=== PATIENT | male | born 1960 | race Caucasian/White ===

== ENCOUNTER → 2018-02-09 09:08 | Outpatient (CLI) | payer MEDICARE, SELFPAY ==
[2018-02-09 10:55] LABS: AST(SGOT) 26 U/L (15-37); Alanine Aminotransfer ALT/SGPT 34 U/L (16-61); Albumin, Serum 3.7 g/dL (3.2-5.0); Alkaline Phosphatase 87 U/L (45-117); Bilirubin, Direct 0.15 mg/dL (0.00-0.30); Cholesterol 125 mg/dL (200); Globulin 3.8 g/dL (2.2-4.2); High Density Lipoprotein 51 mg/dL; Protein, Total 7.5 g/dL (6.4-8.2); Triglycerides 85 mg/dL; Very Low Density Lipoprotein 17 mg/dL (5-40)
== END ==
PROVIDERS: Visit Provider Internal Medicine Cardiovascular Disease
DX: E78.5 Hyperlipidemia, unspecified (principal); Z79.899 Other long term (current) drug therapy
CPT/HCPCS: 36415; 80061; 80076

== ENCOUNTER → 2018-08-14 10:19 | Outpatient (CLI) | payer MEDICARE, SELFPAY ==
[2018-08-14 11:44] LABS: AST(SGOT) 20 U/L (15-37); Alanine Aminotransfer ALT/SGPT 51 U/L (16-61); Albumin, Serum 3.9 g/dL (3.2-5.0); Alkaline Phosphatase 96 U/L (45-117); Bilirubin, Direct 0.14 mg/dL (0.00-0.30); Cholesterol 137 mg/dL (200); High Density Lipoprotein 56 mg/dL; Protein, Total 7.9 g/dL (6.4-8.2); Triglycerides 54 mg/dL; Very Low Density Lipoprotein 11 mg/dL (5-40)
== END ==
PROVIDERS: Referring Provider Internal Medicine Cardiovascular Disease; Visit Provider Internal Medicine Cardiovascular Disease
DX: E78.5 Hyperlipidemia, unspecified (principal)
CPT/HCPCS: 36415; 80061; 80076

== ENCOUNTER → 2019-02-12 09:04 | Outpatient (CLI) | payer MEDICARE, SELFPAY ==
[2018-03-01 11:33] VITALS: BMI 35.9
[2019-02-12 10:42] LABS: AST(SGOT) 32 U/L (15-37); Alanine Aminotransfer ALT/SGPT 57 U/L (16-61); Alkaline Phosphatase 92 U/L (45-117); Bilirubin, Direct 0.13 mg/dL (0.00-0.30); Cholesterol 131 mg/dL (200); Globulin 3.7 g/dL (2.2-4.2); High Density Lipoprotein 54 mg/dL; Protein, Total 7.7 g/dL (6.4-8.2); Triglycerides 73 mg/dL; Very Low Density Lipoprotein 15 mg/dL (5-40)
== END ==
PROVIDERS: Referring Provider Internal Medicine Cardiovascular Disease; Visit Provider Internal Medicine Cardiovascular Disease
DX: E78.5 Hyperlipidemia, unspecified (principal)
CPT/HCPCS: 36415; 80061; 80076

== ENCOUNTER → 2020-02-05 07:57 | Outpatient (CLI) | payer MEDICARE, SELFPAY ==
[2019-02-22 13:03] VITALS: BMI 36.1
[2020-02-05 09:28] LABS: AST(SGOT) 28 U/L (15-37); Alanine Aminotransfer ALT/SGPT 40 U/L (16-61); Albumin, Serum 3.9 g/dL (3.2-5.0); Alkaline Phosphatase 100 U/L (45-117); Bilirubin, Direct 0.12 mg/dL (0.00-0.30); Cholesterol 142 mg/dL (200); Globulin 3.9 g/dL (2.2-4.2); High Density Lipoprotein 52 mg/dL; Protein, Total 7.8 g/dL (6.4-8.2); Triglycerides 97 mg/dL; Very Low Density Lipoprotein 19 mg/dL (5-40)
== END ==
PROVIDERS: Internal Medicine Cardiovascular Disease; Visit Provider Physician Assistant Medical
DX: E78.00 Pure hypercholesterolemia, unspecified (principal); I47.1 Supraventricular tachycardia; I10 Essential (primary) hypertension
CPT/HCPCS: 36415; 80061; 80076

== ENCOUNTER 2020-05-24 16:47 | Emergency (ER) | payer MEDICARE, SELFPAY ==
[2020-02-21 14:36] VITALS: BMI 36.6
[2020-05-24 16:48] VITALS: BP 170/99; PULSE 75; RESP 16; TEMP 36.9; O2SAT 99; BMI 35.9
--- NOTE | 2020-05-24 17:13 | ED.VIS.GEN ---
History of Present Illness Informant: Patient, Significant Other Onset: Weeks - 1 week Context: Gradual Onset Timing: Continuous Current Severity: Severe Maximum Severity: Severe Worsened by: nothing Relieved by: nothing Associated Symptoms: Denies Narrative: 59-year-old male with a history of hypertension and schizophrenia presents to the emergency department with elevated blood pressure. He has been dealing with elevated blood pressure now over the last 4 months. He just had his lisinopril increased from 20 mg to 30 mg a day about a week ago. He recently bought a blood pressure cuff and has been checking his blood pressures at home and he states that they have been running around 150 systolic. His was concerned that the machine was not working they went to the [facility] to check blood pressure and it was 180 systolic and she brought him to the emergency department. The patient currently is asymptomatic. He has no chest pain he does not feel short of breath. He has not felt lightheaded or dizzy. He has not had any headaches visual changes difficulties with speech or ambulation or any weakness or paresthesias. He has been compliant with his medications. He actually has an appointment with his doctor on Tuesday for follow-up regarding his blood pressure. Prior similar symptoms: Yes Recent Illness/Hospitalization: No <Prieto England - Last Filed: 05/24/20 17:37> <Rios Short - Last Filed: 05/24/20 21:15> Chief Complaint: Hypertension Past Medical History Prior records reviewed: Yes Past Medical History: - - Schizophrenia, hypertension, hyperlipidemia, diabetes mellitus insulin-dependent Surgical History: appendectomy, cholecystectomy Lives: With Family Smoking Status: Former smoker Alcohol: None Drugs: None <Prieto England - Last Filed: 05/24/20 17:37> <Rios Short - Last Filed: 05/24/20 21:15> - Allergies and Home Meds Allergies/Adverse Reactions: Allergies No Known Allergies Allergy (Verified 05/24/20 16:48) Primary Care Physician: Mitch Kumar MD [Primary Care Provider] - As soon as possible Review of Systems All systems negative except as indicated General: Denies: Chills, Fever, Sweats Eyes: Denies: Visual changes - bilaterally, Diplopia ENT: Denies: Rhinorrhea, Sore throat Cardiovascular: Denies: Chest pain, Palpitations, Heart racing Respiratory: Denies: Dyspnea, Cough, Dyspnea on exertion Gastrointestinal: Denies: Abdominal pain, Nausea, Vomiting, Diarrhea, Melena, Hematochezia Genitourinary: Denies: Dysuria, Hematuria, Frequency Musculoskeletal: Denies: Back pain, Extremity Pain Skin: Denies: Rash, Wounds Neurological: Denies: Headache, Weakness, Parasthesia, Numbness <Prieto England - Last Filed: 05/24/20 17:37> Physical Exam Vital Signs/Narrative: Vital Signs Temp Pulse Resp BP Pulse Ox 05/24/20 16:48 98.4 F 75 16 170/99 H 99 Inital Vital Signs reviewed: Yes General: Well nourished, Well developed, No Acute Distress Head: Normocephalic, Atraumatic Eyes: Perrl, EOMI ENT: Moist mucous membranes, No rhinorrhea Neck: Supple, Nontender Cardiovascular: Regular rate, Regular rhythm, No murmurs Respiratory: No distress, CTA bilaterally, Chest nontender Abdomen: Soft, Nontender, Nondistended, Normal bowel sounds Back: Nontender, Normal Inspection Extremities: Nontender, No edema Skin: Normal color, No rash Neurological: Alert, Oriented x3, Cranial nerves II-XII grossly intact, Normal Strength, Normal Sensation, Normal Gait Psychological: Normal affect, Normal Mood <Prieto England - Last Filed: 05/24/20 17:37> Vital Signs/Narrative: Vital Signs Pulse Resp BP Pulse Ox 05/24/20 17:40 62 18 139/85 H 99 <Rios Short - Last Filed: 05/24/20 21:15> Diagnostic/Tx/Re-eval - Medical Decision Making Patient is completely asymptomatic his blood pressure here is 170/99. We will observe him and recheck it. At this time I do not feel urgent blood pressure lowering is indicated patient is asymptomatic and his blood pressure is only 170 systolic Repeat evaluation patient's blood pressure was 139/79. He was reassured. He will continue to log his blood pressures. He has an appointment on Tuesday with his doctor for close follow-up. <Prieto England - Last Filed: 05/24/20 17:37> - Medical Decision Making Patient was seen with me. I did a [id number] examination with the patient. Patient presents with elevated blood pressure that he noticed today. Patient states his blood pressure has been elevated at times. Patient denies any headaches. Patient denies any chest pain or shortness of breath. Patient denies any nausea or vomiting. Patient is in no acute distress. Vital signs showed an elevated blood pressure of 170/99. Patient is afebrile. Cranial nerves II through XII are intact. Strength is 5/5 bilateral in the upper and lower extremities. There are no sensory deficits. Heart was regular rate and rhythm. Lungs are clear and equal bilaterally. Abdomen is soft and nontender. Extremities are intact. There is no calf tenderness. Patient was observed here in the emergency department. Patient's blood pressure improved to 139/79. Patient was instructed to follow-up with his primary care physician at the [facility]. Patient was instructed to keep a log of his blood pressures. Patient states he also has an appointment with his certified nursing assistant instructor, Dr. Ahn this week. Patient was instructed to take his blood pressure readings to his certified nursing assistant instructor appointment. Patient understood and was agreeable with the plan. All questions were answered. <Rios Short - Last Filed: 05/24/20 21:15> ED Disposition <Prieto England - Last Filed: 05/24/20 17:37> <Rios Short - Last Filed: 05/24/20 21:15> - Plan for ED Patient: Disposition: Home or Assisted Living Diagnosis: Essential (primary) hypertension Instructions: ED Hypertension Established Referrals: Mitch Kumar MD [Primary Care Provider] - As soon as possible
[2020-05-24 17:40] VITALS: BP 139/85; PULSE 62; RESP 18; O2SAT 99
== END 2020-05-24 17:50 | disposition home or self-care (01) ==
PROVIDERS: Emergency Provider Physician Assistant Medical; PCP Family Medicine
DX: I10 Essential (primary) hypertension (principal); Z87.891 Personal history of nicotine dependence; E11.9 Type 2 diabetes mellitus without complications; E78.5 Hyperlipidemia, unspecified; F20.9 Schizophrenia, unspecified; Z79.4 Long term (current) use of insulin; Z79.84 Long term (current) use of oral hypoglycemic drugs; Z79.899 Other long term (current) drug therapy
CPT/HCPCS: 99282

== ENCOUNTER 2020-10-30 12:23 | Emergency (ER) | payer OTHER, MEDICARE, SELFPAY ==
[2020-05-28 11:22] VITALS: BMI 35.9
[2020-10-30 12:24] VITALS: BP 153/101; PULSE 70; RESP 18; TEMP 36.5; O2SAT 97; BMI 35.9
--- NOTE | 2020-10-30 12:37 | ED.DCSUM_ITS ---
History of Present Illness Chief Complaint: Palpitations Informant: Patient Narrative: 60-year-old male presenting with palpitations. He states he has a history of palpitations in the past. Patient also states about 4 to 5 years ago he was seen at [place] [facility] and was taken to [facility] where he said they did a function test and did not find anything. Patient states that he does drink a lot of iced tea but noticed that the palpitations started in the morning yesterday before he was drinking caffeine. He states he felt a little lightheaded during the palpitations. He denies cough, fever, chills, myalgias, change in taste or smell. He denies chest pain. - Past Medical History (1) Essential (primary) hypertension Status: Chronic (2) HLD (hyperlipidemia) Status: Chronic (3) Supraventricular tachycardia Status: Chronic Past Medical History - Allergies and Home Meds Allergies/Adverse Reactions: Allergies No Known Allergies Allergy (Verified 10/30/20 12:24) Primary Care Physician: Mitch Kumar MD [Primary Care Provider] - Prior records reviewed: Yes Past Medical History: - - Reviewed in problem list Surgical History: appendectomy, cholecystectomy Lives: Alone Smoking Status: Former smoker Alcohol: None Drugs: None Review of Systems General: Denies: Chills, Fever, Sweats Eyes: Denies: Visual changes - bilaterally, Diplopia ENT: Denies: Rhinorrhea, Sore throat Cardiovascular: Reports: Palpitations, Heart racing Respiratory: Denies: Dyspnea, Cough, Dyspnea on exertion Gastrointestinal: Denies: Abdominal pain, Nausea, Vomiting, Diarrhea, Melena, Hematochezia Musculoskeletal: Denies: Back pain, Extremity Pain Skin: Denies: Rash, Wounds Neurological: Denies: Headache, Weakness, Numbness Psych: Denies: Depression, Anxiety Endocrine: Denies: Polyuria, Polydipsia Physical Exam Vital Signs/Narrative: Vital Signs Temp Pulse Resp BP Pulse Ox 10/30/20 12:24 97.7 F L 70 18 153/101 H 97 General: Well nourished, Well developed, No Acute Distress Head: Normocephalic, Atraumatic Eyes: Perrl, EOMI ENT: Moist mucous membranes, No rhinorrhea Cardiovascular: Regular rate, Regular rhythm, No murmurs Respiratory: No distress, CTA bilaterally, Chest nontender Abdomen: Soft, Nontender, Nondistended, Normal bowel sounds Extremities: Nontender, No edema Skin: Normal color, No rash Neurological: Alert, Oriented x3, Cranial nerves II-XII grossly intact, Normal Strength, Normal Sensation Psychological: Normal affect, Normal Mood Diagnostic/Tx/Re-eval - Rhythm Strip Rhythm Strip: Sinus Rhythm Rate: 68 - EKG Initial EKG Interpretation: Sinus Rhythm, No Acute Injury Pattern Follow-up EKG Interpretation: Sinus Rhythm, No Acute Injury Pattern - Medical Decision Making Seen and evaluated on arrival. Vital signs are stable he is afebrile. He had initial EKG which is sinus rhythm at 68 bpm without signs of ischemia. Troponin was bumped at 0.103. Chest x-ray is interpreted by myself shows no acute cardiopulmonary process. Radiology does agree. Otherwise lab work is normal. After initial interview I did find that the patient has history of SVT and similar presentation. He is denying chest pain but states he felt lightheaded and actually describes this as an SVT episode. Patient was discussed with Dr. Fontaine pertinent history was discussed as he does currently see patient. He felt that if the patient had a delta troponin and his troponin had gone down or not changed that he could be discharged home safely with close outpatient follow-up. Repeat EKG is sinus rhythm at 63 bpm without signs of ischemic change as interpreted by myself. Troponin is 0.107 which is not significantly changed. Patient has had no runs of SVT in the ED. Patient feels comfortable being discharged home. Impression: 1. Palpitations 2. History of SVT 3. Indeterminate troponin ED Disposition - Plan for ED Patient: Disposition: Home or Assisted Living Instructions: ED Palpitations Referrals: Mitch Kumar MD [Primary Care Provider] -
--- NOTE | 2020-10-30 12:37 | EKG12_ITS ---
Test Reason : Blood Pressure : / mmHG Vent. Rate : 063 BPM Atrial Rate : 063 BPM P-R Int : 160 ms QRS Dur : 092 ms QT Int : 434 ms P-R-T Axes : 053 -21 041 degrees QTc Int : 444 ms Normal sinus rhythm Normal ECG Confirmed by PRANAV HIGHTOWER, JACLYN ([id number]), communications editor NICK CARLSON ([id number]) on 11/03/2020 10:46:20 AM Referred By: SNOW Confirmed By:AISLINN ROCK MD
[2020-10-30 12:52] VITALS: BP 146/72; PULSE 67; RESP 20; O2SAT 94
--- NOTE | 2020-10-30 12:58 | ED.RN ---
COVID SWAB OBTAINED
[2020-10-30 12:59] LABS: Absolute Lymphocyte Count 2.74 X10^3/uL (0.83-4.51); Absolute Neutrophil Count 5.7 X10^3/uL (2.0-7.7); Basophil# 0.05 X10^3/uL; Basophil% 0.5 % (0-1); Eosinophils% 2.1 % (0-5); Hematocrit 44.6 % (40-54); Hemoglobin 15.4 g/dL (13.0-16.5); Lymphocyte # 2.74 X10^3/ul (4.0); Mean Corp Hgb Conc 34.5 g/dL (32-36); Mean Corpuscular Hgb 31.3 pg (27.0-32.0); Mean Corpuscular Volume 90.7 fL (80-94); Mean Platelet Vol. 9.3 fl (6.2-12.0); Monocyte# 0.74 X10^3/uL; Monocyte% 7.8 % (0-10); NRBC Flagged by Analyzer 0 % (0-5); Neutrophil # 5.67 X10^3/uL (2.7-7.7); Neutrophil % 60.1 % (47-70); Platelet Count 234 K/mm3 (150-450); RBC Distribution Width CV 12.8 % (11.6-14.6); RBC Distribution Width SD 42.2 fl (35.1-43.9); Red Blood Count 4.92 M/mm3 (4.6-6.2); White Blood Count 9.5 K/mm3 (4.4-11.0)
--- NOTE | 2020-10-30 13:00 | RAD_ITS ---
STUDY: X-RAY CHEST REASON FOR EXAM: Male, 60 years old. Irregular HR yesterday- HX OF SAME TECHNIQUE: Single AP portable view of the chest. COMPARISON: Comparison is made with prior study 07/19/2013. FINDINGS: EKG electrodes are seen. Elevation of the left hemidiaphragm with mild degree of left basilar atelectasis. There is no demonstrated pleural abnormality. Normal size heart. Normal mediastinum and jose de jesus. Normal visualized pulmonary arteries. Normal visualized aortic arch and descending thoracic aorta. There are degenerative changes of the visualized thoracic spine. Normal visualized ribs, clavicles, and shoulders. There is no demonstrated abnormality of the visualized soft tissue structures of the upper abdomen. RAD/Chest 1 View (Portable) IMPRESSION: Elevation of the left hemidiaphragm with a mild degree of left basilar atelectasis. Electronically Signed: Manjinder Pinon MD at 13:21 EST , Service support ,
[2020-10-30 13:15] LABS: Anion Gap 6 (5-15); BUN 16 mg/dL (7-18); BUN/Creat Ratio 14.3 RATIO (10-20); Calcium,Total 9.4 mg/dL (8.5-10.1); Chloride 99 mmol/L (98-107); Creatinine, Serum 1.12 mg/dL (0.70-1.30); EST Glomerular Filtration Rate 71 mL/min (>60); Est Glom Filt Rate - Afr Amer 86 mL/min (>60); Estimated Creatinine Clearance 71.52 ml/min; Glucose 157 mg/dL (74-106); Potassium 4.1 mmol/L (3.5-5.1); Sodium Level 133 mmol/L (136-145)
[2020-10-30 13:48] VITALS: BP 115/82; PULSE 78; RESP 20; O2SAT 94
[2020-10-30 14:08] VITALS: PULSE 63; RESP 20; O2SAT 97
[2020-10-30] MEDS: Aspirin 81 MG TAB.CHEW 324 MG PO (14:08)
[2020-10-30 15:17] VITALS: BP 135/79; PULSE 68; RESP 16; O2SAT 98
--- NOTE | 2020-10-30 15:30 | EKG12_ITS ---
Test Reason : Blood Pressure : / mmHG Vent. Rate : 068 BPM Atrial Rate : 068 BPM P-R Int : 156 ms QRS Dur : 096 ms QT Int : 418 ms P-R-T Axes : 050 -25 047 degrees QTc Int : 444 ms Normal sinus rhythm Normal ECG Confirmed by PRANAV HIGHTOWER, JACLYN ([id number]), graphics editor NICK CARLSON ([id number]) on 11/03/2020 10:46:35 AM Referred By: ARNOLD Confirmed By:AISLINN ROCK MD
[2020-10-30 16:49] VITALS: BP 138/88; PULSE 68; RESP 16; TEMP 35.8; O2SAT 98
== END 2020-10-30 17:23 | disposition home or self-care (01) ==
PROVIDERS: Emergency Provider Student in an Organized Health Care Education/Training Program; PCP Family Medicine
DX: R00.2 Palpitations (principal); I47.1 Supraventricular tachycardia; I10 Essential (primary) hypertension; E78.5 Hyperlipidemia, unspecified; Z87.891 Personal history of nicotine dependence; Z90.49 Acquired absence of other specified parts of digestive tract
CPT/HCPCS: 71045; 80048; 83735; 84484; 85025; 87426; 93005; 99285; A4216

== ENCOUNTER → 2021-01-26 08:25 | Outpatient (CLI) | payer MEDICARE, OTHER, SELFPAY ==
[2021-01-26 10:07] LABS: AST(SGOT) 12 U/L (15-37); Alanine Aminotransfer ALT/SGPT 32 U/L (16-61); Albumin, Serum 3.9 g/dL (3.2-5.0); Alkaline Phosphatase 93 U/L (45-117); Bilirubin, Direct 0.18 mg/dL (0.00-0.30); Cholesterol 134 mg/dL (200); Globulin 3.6 g/dL (2.2-4.2); High Density Lipoprotein 63 mg/dL; Protein, Total 7.5 g/dL (6.4-8.2); Triglycerides 72 mg/dL; Very Low Density Lipoprotein 14 mg/dL (5-40)
== END ==
PROVIDERS: PCP Family Medicine; Referring Provider Internal Medicine Cardiovascular Disease; Visit Provider Internal Medicine Cardiovascular Disease
DX: E78.00 Pure hypercholesterolemia, unspecified (principal)
CPT/HCPCS: 36415; 80061; 80076

== ENCOUNTER → 2024-08-28 | Outpatient (CLI) | payer MEDICARE, SELFPAY ==
[2024-08-28 16:00] LABS: PSA,Total - Annual Screen 0.47 ng/mL (0.00-4.00)
== END | disposition home or self-care (01) ==
PROVIDERS: PCP Family Medicine; Visit Provider Nurse Practitioner Family
DX: Z12.5 Encounter for screening for malignant neoplasm of prostate (principal)
CPT/HCPCS: 36415; 84153; G0103

== ENCOUNTER 2024-11-01 13:48 | Emergency (ER) | payer OTHER, SELFPAY ==
[2024-11-01] VITALS (8 sets, daily range): BP systolic 107–120; BP diastolic 68–90; PULSE 90–213; RESP 16–28; TEMP 35.7–36.8; O2SAT 97–100; BMI 31.5
[2024-11-01] MEDS: Adenosine 6 MG/2 ML Syringe IV (14:00)
[2024-11-01] MEDS: Adenosine 6 MG/2 ML Syringe 12 MG IV (14:04)
--- NOTE | 2024-11-01 14:07 | EKG12_ITS ---
Test Reason : PALPITATIONS Blood Pressure : */* mmHG Vent. Rate : 204 BPM Atrial Rate : * BPM P-R Int : * ms QRS Dur : 114 ms QT Int : 234 ms P-R-T Axes : * -48 69 degrees QTcB Int : 431 ms Critical Test Result: High HR Supraventricular tachycardia with Premature ventricular complexes or Fusion complexes Left axis deviation Abnormal ECG Confirmed by KD HIGHTOWER, BAO ([id number]), editor continuity and script NICK CARLSON ([id number]) on 11/05/2024 6:03:33 AM Referred By: Confirmed By: BAO YI MD
--- NOTE | 2024-11-01 14:08 | EDS_ITS ---
HPI History of Present Illness Chief Complaint: Palpitations Detail of Chief Complaint: No chest pain. Palpitations started 1-1/2 hours ago. Informant: patient Onset/Context/Timing Onset: Today and Hours Activity at onset: sudden Timing: Continuous Narrative Narrative: 64-year-old male history of a prior abnormal heart rhythm he thinks may have been SVT. Baseline about an hour and a half ago he started having accelerated heart rate and palpitations. Denies chest pain. Said the last time he had a year ago that resolved on its own. He has had to come to the ER before and been given medication for but he cannot remember he believes that may have been around 6 years ago. 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) Schizophrenia Obesity Type 2 diabetes mellitus Essential (primary) hypertension HLD (hyperlipidemia) Home Medications ?Medication ?Instructions ?Recorded ?Last Taken ?Type citalopram 40 mg tablet 40 mg PO DAILY 07/19/1307/03 08:00 History 40 MG aripiprazole 30 mg tablet 30 mg PO QDAY 02/28/18 Unkno wn History benztropine 0.5 mg tablet 0.5 mg PO BID 03/01/18 Unkno wn History atenolol 25 mg tablet 75 mg PO BID 05/28/20 Unknow n History glyburide 5 mg tablet 10 mg PO BID 05/28/20 Unknow n History aspirin 81 mg tablet,delayed 81 mg PO DAILY 02/05/21 U nknown History release (Adult Aspirin Regimen) insulin glargine 100 unit/mL (3 32 unit subcut QDAY Unknown History mL) subcutaneous pen (Lantus Solostar U-100 Insulin) lisinopril 30 mg tablet 30 mg PO DAILY 02/05/21 Unkn own History metformin 1,000 mg tablet 1,000 mg PO BID 02/05/21 Unk nown History amlodipine 10 mg tablet 10 mg PO DAILY 04/26/23 Unkn own History pantoprazole 20 mg tablet,delayed 20 mg PO DAILY 04/26 Unknown History release rosuvastatin 20 mg tablet 20 mg PO QHS 04/26/23 Unknow n History semaglutide 0.25 mg or 0.5 mg (2 0.25 mg subcut QWEEK 04/26/23 Unknown History mg/3 mL) subcutaneous pen injector (OzempBionanoplus) tamsulosin 0.4 mg capsule 0.4 mg PO DAILY 04/26/23 Unk nown History Allergy/AdvReac Type Severity Reaction Status Date / Time No Known Allergies Allergy Verified 11/01/24 13:49 Family History Grandfather Heart disease Surgical History Hx of cholecystectomy Hx of appendectomy Social History Smoking Status: Former smoker alcohol intake: never caffeine: Yes Type: coffee Number of servings: 1 what type of physical activity do you participate in: walking frequency: daily duration: 15-30 minutes/day ROS ROS ED ROS Narrative Summary heart rate. No chest pain. No recent illness. Constitutional Constitutional ED: Denies chills or fever(s) Eyes Eyes: Reports none ENT ENT ED: Denies ear pain Cardiovascular Cardiovascular: Reports palpitations and racing heartbeat; Denies chest pain Respiratory/Chest Respiratory/Chest: Denies dyspnea Gastrointestinal Gastrointestinal: Denies abdominal pain Genitourinary Genitourinary ED: Denies dysuria or hematuria Musculoskeletal Musculoskeletal: Denies arthralgias Integumentary Denies abscess Neurologic Neurologic: Denies headache(s) Psychiatric Psychiatric: Denies anxiety or depression Endocrine Endocrinology: Denies cold intolerance or heat intolerance Hematologic/Lymphatic Hematologic/Lymphatic: Denies easy bleeding, easy bruising or lymphadenopathy Allergic/Immunologic Allergic/Immunologic ED: Denies mouth swelling, tongue swelling or urticaria EXAM Physical Exam Narrative Exam Narrative: 64-year-old male heart rates in the 200s. But he is awake sitting upright in bed. His initial blood pressure is 118/90. His pulse ox is 100% on room air no signs of hypoxia. H EENT exam pupils round reactive light. He is talking to me without difficulty. Neck nontender no JVD. Lungs clear to auscultation bilaterally. Heart tachycardic to 10. No murmur. Chest wall nontender. Abdomen soft nontender. No peritoneal signs. Back nontender. Neurologically is awake and alert no focal motor deficits. He is moving all 4 extremities. Normal insole rounder strength. Normal dorsi plantarflexion. No calf tenderness. No edema. Const Vital Signs: 11/01/24 13:49 11/01/24 13:53 11/01/24 14:00 Temperature 96.2 F L Temperature Source Temporal Pulse Rate 213 H 211 H Respiratory Rate 28 H Respiratory Effort Normal Non-Labored Blood Pressure 118/90 H Blood Pressure Mean 99 Pulse Ox 100 Oxygen Delivery Method Room Air 11/01/24 14:01 11/01/24 14:05 11/01/24 14:08 Temperature Temperature Source Pulse Rate 205 H 90 Respiratory Rate 26 H Respiratory Effort Blood Pressure 120/69 Blood Pressure Mean 86 Pulse Ox 98 99 Oxygen Delivery Method Room Air Room Air 11/01/24 14:20 11/01/24 14:58 Temperature Temperature Source Pulse Rate 94 98 Respiratory Rate Respiratory Effort Blood Pressure 108/77 107/68 Blood Pressure Mean 87 81 Pulse Ox 97 Oxygen Delivery Method Room Air Positive well nourished and well developed; Negative for cachectic, contractures or unkempt General Appearance ED: well developed and NAD; Negative for unkempt, cachectic, contractures or pallor Nutritional Appearance: Negative for cachectic HEENT Reports moist mucous membranes normocephalic and atraumatic; Negative for trauma or tenderness Eyes PERRL and EOMs intact bilaterally General Eye ED: Negative for pale conjunctiva or scleral icterus Neck no lymphadenopathy, supple and no JVD Chest Wall inspection of chest normal and palpation of chest normal Resp normal respiratory effort and clear to auscultation bilaterally Cardio S1 normal heart sound, S2 normal heart sound and no murmurs; Negative for regular rate Rate: tachycardic and other Other Details: SVT at 2010, Peripheral Pulses: pulses 2+ throughout GI normal to inspection, nondistended, normoactive bowel sounds, soft to palpation, non-tender, non-distended and no masses Back/Spine no CVA tenderness and no thoracic nor lumbar tenderness Extremity normal to inspection General Extremety ED: Negative for edema, pulses abnormal or tenderness General Extremity: Negative for edema or pulses abnormal Neuro oriented x3 and CN's II-XII intact bilaterally Sensorium / Orientation: awake, alert, oriented to person, oriented to place and oriented to time; Negative for confused, lethargic or stuporous Motor Exam: strength 5/5 throughout Psych mental status grossly normal Appearance: Negative for unkempt Mood & Affect: Negative for depressed, anxious or tearful Skin no rashes or lesions noted and no wounds General Skin Exam: Negative for jaundice or pallor Rashes: No rashes noted Trauma: Negative for abrasion, laceration or puncture MDM MDM MDM Narrative Medical decision making narrative: 64-year-old male history of a prior SVT believes with a tachycardia looks like SVT on the monitor and his EKG. Was given 6 milligrams of adenosine and 12. After the 12 mg IV adenosine it broke currently he is in sinus tachycardia rate about 128. Repeat EKG being obtained. Undergo cardiac workup. Repeat exam patient doing well at 3:16 PM. He is in sinus rhythm. We went over his test results. He will follow-up with his medical office clerk office. Continue on his current medications. Currently his blood pressure is about 113/70. His heart rates in the 90s. He will be discharged home and follow-up with his medical office clerk. We discussed that they may want to consider putting him on a beta-will. History & Record Review Discussion w/independent historian: Patient Additional record(s) reviewed:: Prior inpatient record, Prior outpatient record, Prior ED visit and Prior labs Lab Data Attestation: I reviewed the patient's lab results. Lab results narrative: CBC shows a white count of 14.2. H&H is 17 and 49. Platelets 252. Chemistry shows sodium 135. Gap 10. BUN of 24 creatinine 1.57. Glucose 168. Troponin is normal 11. TSH is slightly elevated at 4. Labs: Laboratory Results - last 24 hr 11/01/24 13:55 WBC 14.2 H RBC 5.36 Hgb 17.0 H Hct 49.0 MCV 91.4 MCH 31.7 MCHC 34.7 RDW Std Deviation 41.9 RDW Coeff of Kandice 12.6 Plt Count 252 MPV 9.5 Immature Gran % (Auto) 0.400 Neut % (Auto) 55.7 Lymph % (Auto) 32.2 [place] % (Auto) 8.3 Eos % (Auto) 2.8 Baso % (Auto) 0.6 Absolute Neuts (auto) 7.9 H Absolute Lymphs (auto) 4.56 H Nucleated RBC % 0 Sodium 135 L Potassium 4.6 Chloride 101 Carbon Dioxide 25.0 Anion Gap 10 BUN 24 H Creatinine 1.57 H Estim Creat Clear Calc 55.54 Est GFR (MDRD) Af Amer 57 L Est GFR (MDRD) Non-Af 47 L BUN/Creatinine Ratio 15.3 Glucose 168 H Calcium 10.0 Troponin I High Sens 11 TSH 4.020 H Radiography Chest X-Ray - ED: 1 View, Read by ED Physician, Heart, Lungs, Mediastinum, Bony Structures, No Acute Disease and Chronic Changes Diagnostic Testing: Clinical Impression(s) from Imaging Studies Chest X-Ray 11/01/24 14:20 IMPRESSION: Moderate left hemidiaphragm elevation is seen, with mild left basilar ate lectasis present. Lungs otherwise appear clear. No evidence of pulmonary edema. No pleural effusion or pneumothorax is seen. The cardiomediastinal silhouette is within the normal range. No acute osseous change is evident. Reading Location: [address] Rhythm Strip Rhythm Strip: SVT. Rate: 204 Ectopy: None EKG Initial EKG: Attestation: I personally reviewed and interpreted this EKG as follows: Interpretation: SVT Comments: SVT rate of 204. Follow-up EKG: Attestation: I personally reviewed and interpreted this EKG as follows: Interpretation: Sinus Rhythm and No Acute Injury Pattern Comments: Post adenosine. Patient's SVT is now normal sinus rhythm rate of 96 with no acute signs of VA nor ischemia nor dysrhythmia. Discharge Plan Triage Chief Complaint: Palpitations ED Provider: Jose Mariee Dx/Rx/DC Orders Clinical Impression: SVT (supraventricular tachycardia) Instructions: Supraventricular Tachycardia Prescriptions: No Action benztropine 0.5 mg tablet 0.5 mg PO BID glyburide 5 mg tablet 10 mg PO BID Lantus Solostar U-100 Insulin 100 unit/mL (3 mL) insulin pen 32 unit SC QDAY aripiprazole 30 mg tablet 30 mg PO QDAY lisinopril 30 mg tablet 30 mg PO DAILY metformin 1,000 mg tablet 1,000 mg PO BID aspirin [Adult Aspirin Regimen] 81 mg tablet,delayed release (DR/EC) 81 mg PO DAILY pantoprazole 20 mg tablet,delayed release (DR/EC) 20 mg PO DAILY amlodipine 10 mg tablet 10 mg PO DAILY tamsulosin 0.4 mg capsule 0.4 mg PO DAILY Ozempic 0.25 mg or 0.5 mg (2 mg/3 mL) pen injector 0.25 mg subcut QWEEK Rx Instructions: for 4 weeks citalopram 40 MG tablet 40 mg PO DAILY atenolol 25 mg tablet 75 mg PO BID rosuvastatin 20 mg tablet 20 mg PO QHS Primary Care Provider: Jose Saul Referrals: shannon [Other] Geovani Ahn MD [Med Staff - Active Staff] - As soon as possible (Call their office today or tomorrow. Tell them you are in the ER and you have an SVT or supraventricular tachycardia. You need to be evaluated may need to decide if they can adjust your blood pressure medications.) Jose Saul MD [Primary Care Provider] - As Needed (Follow-up with Dr. Chowdhury if you cannot get in the medical office clerk office in the next week or so.) Activity Restrictions/Additional Instructions: You have an SVT or supraventricular tachycardia. Your heart rate was over 200. They may need to adjust your blood pressure medications and add a beta-will. Will need to discuss that with your medical office clerk at the office. Follow-up with your medical office clerk or your primary care physician. Call the medical office clerk office either this afternoon or Tuesday and seething get you in next week. Continue your current medications. Print Language: Prydeinig Disposition Disposition: Home, Self Care
--- NOTE | 2024-11-01 14:15 | EKG12_ITS ---
Test Reason : Blood Pressure : */* mmHG Vent. Rate : 96 BPM Atrial Rate : 96 BPM P-R Int : 164 ms QRS Dur : 90 ms QT Int : 342 ms P-R-T Axes : 54 -24 47 degrees QTcB Int : 432 ms Normal sinus rhythm Normal ECG Confirmed by KD HIGHTOWER, BAO ([id number]), assignment desk editor NICK CARLSON ([id number]) on 11/05/2024 6:03:50 AM Referred By: RADHA Confirmed By: BAO YI MD
--- NOTE | 2024-11-01 14:20 | RAD_ITS ---
PROCEDURE: CHEST 1 VIEW (PORTABLE) REASON FOR EXAM: Chest pain. Pre-admission. TECHNIQUE: AP portable upright view of the chest. COMPARISON: None. RAD/Chest 1 View (Portable) IMPRESSION: Moderate left hemidiaphragm elevation is seen, with mild left basilar atelectas is present. Lungs otherwise appear clear. No evidence of pulmonary edema. No pleural effusion or pneumothorax is seen. The cardiomediastinal silhouette is within the normal range. No acute osseous change is evident. Reading Location: [id number]
[2024-11-01 14:27] LABS: Absolute Lymphocyte Count 4.56 X10^3/uL (0.83-4.51); Absolute Neutrophil Count 7.9 X10^3/uL (2.0-7.7); Basophil# 0.09 X10^3/uL; Basophil% 0.6 % (0-1); Eosinophil# 0.39 X10^3/uL; Eosinophils% 2.8 % (0-5); Lymphocyte # 4.56 X10^3/ul (0.83-4.51); Lymphocyte % 32.2 % (19-41); Mean Corp Hgb Conc 34.7 g/dL (32-36); Mean Corpuscular Hgb 31.7 pg (27.0-32.0); Mean Corpuscular Volume 91.4 fL (80-94); Mean Platelet Vol. 9.5 fl (6.2-12.0); Monocyte# 1.18 X10^3/uL; Monocyte% 8.3 % (0-10); NRBC Flagged by Analyzer 0 % (0-5); Neutrophil # 7.87 X10^3/uL (2.7-7.7); Neutrophil % 55.7 % (47-70); Platelet Count 252 K/mm3 (150-450); RBC Distribution Width CV 12.6 % (11.6-14.6); RBC Distribution Width SD 41.9 fl (35.1-43.9); Red Blood Count 5.36 M/mm3 (4.6-6.2); White Blood Count 14.2 K/mm3 (4.4-11.0)
[2024-11-01 14:59] LABS: Anion Gap 10 (5-15); BUN 24 mg/dL (7-18); BUN/Creat Ratio 15.3 RATIO (10-20); Chloride 101 mmol/L (98-107); Creatinine, Serum 1.57 mg/dL (0.70-1.30); EST Glomerular Filtration Rate 47 mL/min (>60); Est Glom Filt Rate - Afr Amer 57 mL/min (>60); Estimated Creatinine Clearance 55.54 ml/min; Glucose 168 mg/dL (74-106); Potassium 4.6 mmol/L (3.5-5.1); Sodium Level 135 mmol/L (136-145); Troponin-I HS 11 pg/mL (3.0-78.0)
== END 2024-11-01 15:40 | disposition home or self-care (01) ==
PROVIDERS: Emergency Provider Emergency Medicine; PCP Family Medicine; Visit Provider Emergency Medicine
DX: I47.10 Supraventricular tachycardia, unspecified (principal); F20.9 Schizophrenia, unspecified; E11.9 Type 2 diabetes mellitus without complications; I25.2 Old myocardial infarction; Z87.891 Personal history of nicotine dependence
CPT/HCPCS: 71045; 80048; 84443; 84484; 85025; 93005; 96374; 96376; 99284; J0153

== ENCOUNTER → 2024-11-26 | Outpatient (CLI) | payer MEDICARE, SELFPAY ==
[2024-11-26 15:20] LABS: Absolute Lymphocyte Count 2.61 X10^3/uL (0.83-4.51); Absolute Neutrophil Count 3.8 X10^3/uL (2.0-7.7); Basophil# 0.07 X10^3/uL; Basophil% 0.9 % (0-1); Eosinophil# 0.42 X10^3/uL; Eosinophils% 5.6 % (0-5); Hematocrit 49.3 % (40-54); Hemoglobin 16.3 g/dL (13.0-16.5); Lymphocyte # 2.61 X10^3/ul (0.83-4.51); Lymphocyte % 34.6 % (19-41); Mean Corp Hgb Conc 33.1 g/dL (32-36); Mean Corpuscular Hgb 31.3 pg (27.0-32.0); Mean Corpuscular Volume 94.6 fL (80-94); Mean Platelet Vol. 9.9 fl (6.2-12.0); Monocyte# 0.59 X10^3/uL; Monocyte% 7.8 % (0-10); NRBC Flagged by Analyzer 0 % (0-5); Neutrophil # 3.83 X10^3/uL (2.7-7.7); Neutrophil % 50.8 % (47-70); Platelet Count 203 K/mm3 (150-450); RBC Distribution Width CV 12.8 % (11.6-14.6); RBC Distribution Width SD 44.5 fl (35.1-43.9); Red Blood Count 5.21 M/mm3 (4.6-6.2); White Blood Count 7.5 K/mm3 (4.4-11.0)
[2024-11-26 19:07] LABS: AST(SGOT) 20 U/L (15-37); Alanine Aminotransfer ALT/SGPT 57 U/L (16-61); Albumin, Serum 3.9 g/dL (3.2-5.0); Alkaline Phosphatase 93 U/L (45-117); Anion Gap 7 (5-15); BUN 16 mg/dL (7-18); Calcium,Total 9.3 mg/dL (8.5-10.1); Chloride 104 mmol/L (98-107); Cholesterol 115 mg/dL (200); Creatinine, Serum 1.07 mg/dL (0.70-1.30); EST Glomerular Filtration Rate 74 mL/min (>60); Est Glom Filt Rate - Afr Amer 89 mL/min (>60); Globulin 4.1 g/dL (2.2-4.2); Glucose 93 mg/dL (74-106); High Density Lipoprotein 61 mg/dL; Potassium 4.5 mmol/L (3.5-5.1); Sodium Level 136 mmol/L (136-145); T4 Free Direct 0.84 ng/dL (0.76-1.46); Triglycerides 52 mg/dL; Very Low Density Lipoprotein 10 mg/dL (5-40)
== END | disposition home or self-care (01) ==
LOC: MFPLAB 11:49
PROVIDERS: PCP Family Medicine; Referring Provider Family Medicine; Visit Provider Family Medicine
DX: R00.0 Tachycardia, unspecified (principal); E11.65 Type 2 diabetes mellitus with hyperglycemia; R79.89 Other specified abnormal findings of blood chemistry
CPT/HCPCS: 36415; 80053; 80061; 82306; 84439; 84443; 84481; 85025

== ENCOUNTER 2025-03-18 07:40 | Emergency (ER) | payer OTHER, SELFPAY ==
[2025-03-18 07:40] VITALS: BP 113/73; PULSE 93; RESP 14; TEMP 36.2; O2SAT 98; BMI 30.7
--- NOTE | 2025-03-18 07:49 | EKG12_ITS ---
Test Reason : PALPS Blood Pressure : */* mmHG Vent. Rate : 86 BPM Atrial Rate : 86 BPM P-R Int : 168 ms QRS Dur : 84 ms QT Int : 342 ms P-R-T Axes : 66 -23 52 degrees QTcB Int : 409 ms Normal sinus rhythm Normal ECG Confirmed by KD HIGHTOWER, BAO ([id number]), design editor ALLA MORENO ([id number]) on 03/19/2025 10:46:42 AM Referred By: AHMET Confirmed By: BAO YI MD
[2025-03-18 07:58] LABS: Absolute Lymphocyte Count 3.22 X10^3/uL (0.83-4.51); Absolute Neutrophil Count 7.6 X10^3/uL (2.0-7.7); Basophil# 0.05 X10^3/uL; Basophil% 0.4 % (0-1); Eosinophil# 0.31 X10^3/uL; Eosinophils% 2.5 % (0-5); Hematocrit 46.4 % (40-54); Hemoglobin 15.7 g/dL (13.0-16.5); Lymphocyte # 3.22 X10^3/ul (0.83-4.51); Lymphocyte % 26.4 % (19-41); Mean Corp Hgb Conc 33.8 g/dL (32-36); Mean Corpuscular Hgb 31.7 pg (27.0-32.0); Mean Corpuscular Volume 93.5 fL (80-94); Mean Platelet Vol. 9.6 fl (6.2-12.0); Monocyte# 0.99 X10^3/uL; Monocyte% 8.1 % (0-10); NRBC Flagged by Analyzer 0 % (0-5); Neutrophil # 7.58 X10^3/uL (2.7-7.7); Platelet Count 194 K/mm3 (150-450); RBC Distribution Width CV 13.8 % (11.6-14.6); RBC Distribution Width SD 47.5 fl (35.1-43.9); Red Blood Count 4.96 M/mm3 (4.6-6.2); White Blood Count 12.2 K/mm3 (4.4-11.0)
[2025-03-18] MEDS: 0.9% Normal Saline (1000mL) 1,000 ML 999 ML IV ×2 (08:01→09:21)
[2025-03-18] MEDS: Aspirin 81 MG TAB.CHEW 324 MG PO (08:01)
--- NOTE | 2025-03-18 08:04 | EDS_ITS ---
HPI History of Present Illness Chief Complaint: Palpitations Narrative Narrative: Patient is a 64-year-old male with past medical history of AVNRT, schizophrenia, type 2 diabetes, hypertension, hyperlipidemia who presented to the emergency department with a concern of palpitations. Patient states that around 930 last night he felt like he was developing palpitations and he states that he decided to go to bed. He states that he woke up this morning with the same feeling and he states that he has a history of this. Patient notes that here in the emergency department he feels back to his baseline and does not have any complaints. Patient states that he has an appointment with his physician on his primary care doctor. He denies any recent travel history denies any history of blood clots he states that he is not on any blood thinning medications. 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) Schizophrenia Obesity Type 2 diabetes mellitus Essential (primary) hypertension HLD (hyperlipidemia) Home Medications ?Medication ?Instructions ?Recorded ?Last Taken ?Type citalopram 40 mg tablet 40 mg PO DAILY 07/19/1307/03 08:00 History 40 MG aripiprazole 30 mg tablet 30 mg PO QDAY 02/28/18 Unkno wn History benztropine 0.5 mg tablet 0.5 mg PO BID 03/01/18 Unkno wn History atenolol 25 mg tablet 75 mg PO BID 05/28/20 Unknow n History glyburide 5 mg tablet 10 mg PO BID 05/28/20 Unknow n History aspirin 81 mg tablet,delayed 81 mg PO DAILY 02/05/21 U nknown History release (Adult Aspirin Regimen) insulin glargine 100 unit/mL (3 32 unit subcut QDAY Unknown History mL) subcutaneous pen (Lantus Solostar U-100 Insulin) lisinopril 30 mg tablet 30 mg PO DAILY 02/05/21 Unkn own History metformin 1,000 mg tablet 1,000 mg PO BID 02/05/21 Unk nown History amlodipine 10 mg tablet 10 mg PO DAILY 04/26/23 Unkn own History pantoprazole 20 mg tablet,delayed 20 mg PO DAILY 04/26 Unknown History release rosuvastatin 20 mg tablet 20 mg PO QHS 04/26/23 Unknow n History semaglutide 0.25 mg or 0.5 mg (2 0.25 mg subcut QWEEK 04/26/23 Unknown History mg/3 mL) subcutaneous pen injector (Ozempic) tamsulosin 0.4 mg capsule 0.4 mg PO DAILY 04/26/23 Unk nown History Allergy/AdvReac Type Severity Reaction Status Date / Time No Known Allergies Allergy Verified 03/18/25 07:41 Family History Grandfather Heart disease Surgical History Hx of cholecystectomy Hx of appendectomy Social History Smoking Status: Former smoker alcohol intake: never caffeine: Yes Type: coffee Number of servings: 1 what type of physical activity do you participate in: walking frequency: daily duration: 15-30 minutes/day ROS ROS ED ROS Narrative Constitutional: Denies fevers, chills, headaches, lightheadedness, dizziness Eyes: Denies change in vision double vision blurry vision Cardiovascular: Complains of palpitations as noted above denies chest pain Respiratory: Denies coughing wheezing shortness of breath Abdomen: Denies abdominal pain nausea vomit diarrhea : Denies urinary symptoms Neurological: Denies numbness, weakness, tingling Musculoskeletal: Denies back pain Skin: Denies rashes or lesions EXAM Physical Exam Narrative Exam Narrative: General: Patient is lying in bed rest comfortably do not appear to be in acute distress Head: Atraumatic, normocephalic Eyes: PERRL bilaterally, EOMI bilaterally, no conjunctival injection noted Neck: Soft, supple, trachea midline Cardiovascular: Regular rate and rhythm no murmurs's noted Respiratory: Clear to auscultation bilaterally Abdomen: Soft, nondistended, nontender to palpation Extremities: +5/5 strength noted in the bilateral upper and lower extremities, radial pulses +2/4 in the bilateral extremities, no pedal edema on exam Neurological: Patient following commands knew that he was at [facility] year is 2024 Skin: Warm, dry, intact no rashes or lesions noted Const Vital Signs: 03/18/25 07:40 03/18/25 07:40 03/18/25 07:49 Temperature 97.1 F L Temperature Source Temporal Pulse Rate 93 Respiratory Rate 14 Respiratory Effort Normal Non-Labored Blood Pressure 113/73 Blood Pressure Mean 86 Pulse Ox 98 Oxygen Delivery Method Room Air Room Air 03/18/25 09:40 03/18/25 11:00 Temperature Temperature Source Pulse Rate 61 62 Respiratory Rate 14 15 Respiratory Effort Blood Pressure 106/74 125/90 H Blood Pressure Mean 84 101 Pulse Ox 99 100 Oxygen Delivery Method Room Air Room Air MDM MDM MDM Narrative Medical decision making narrative: Patient is a 64-year-old male who presented to the emergency department the chief complaint of palpitations. On the differential diagnosis includes but not limited to ACS, pneumonia, pneumothorax, AVNRT. Once the workup is obtained reviewed he will be reevaluated. Patient's CBC reviewed and showed a white blood count of 12,000, hemoglobin 15.7, plate count was 194. Patient sodium normal 139, potassium normal 4.7, creatinine was 1.61. Patient's troponin was 59 with a delta troponin of 95. Patient's EKG reviewed and showed sinus rhythm with a rate of 86 bpm this was compared to EKG from November 01, 2024 and is largely unchanged. Patient TSH normal at 3.06, free T4 and T3 are 1 and 3.3 respectively. Patient chest x-ray reviewed by myself and by her radiology which showed improved aeration of the left lung base no other acute cardiopulmonary processes noted. Called and spoke with on-call assistant auditor Dr. Ahn who states that he can follow-up with him this week. He states that he would not make any medication adjustments after our discussion. Discussed this plan with the patient and he is agreeable this plan he would like to go home at this point in time. We were unable to evaluate this tachycardia as he was in sinus rhythm when he arrived. We will place him on a Holter monitor. He is advised to return with worsening symptoms or concerns. His elevated troponins were likely secondary to his persistent tachycardia throughout the evening last night and cardiology agrees with this. He is not having chest pain and has not had any chest pain while in the emergency department. All question concerns answered he is discharged home in stable condition. Lab Data Labs: Laboratory Results - last 24 hr 03/18/25 03/18/25 07:50 10:25 WBC 12.2 H RBC 4.96 Hgb 15.7 Hct 46.4 MCV 93.5 MCH 31.7 MCHC 33.8 RDW Std Deviation 47.5 H RDW Coeff of Kandice 13.8 Plt Count 194 MPV 9.6 Immature Gran % (Auto) 0.600 Neut % (Auto) 62.0 Lymph % (Auto) 26.4 [place] % (Auto) 8.1 Eos % (Auto) 2.5 Baso % (Auto) 0.4 Absolute Neuts (auto) 7.6 Absolute Lymphs (auto) 3.22 Nucleated RBC % 0 Sodium 139 Potassium 4.7 Chloride 104 Carbon Dioxide 22.1 Anion Gap 12 BUN 26 H Creatinine 1.61 H Estim Creat Clear Calc 53.47 Est GFR (MDRD) Non-Af 47 L BUN/Creatinine Ratio 16.4 Glucose 169 H Calcium 9.3 Troponin T High Sens 59 H* Troponin T Hi Sens 2 Hr 95 H* TSH 3.060 Free T4 1.00 Free T3 pg/dL 3.3 Radiography Diagnostic Testing: Clinical Impression(s) from Imaging Studies Chest X-Ray 03/18/25 08:15 IMPRESSION: Improved aeration of the left lung as described. No evidence of acute cardiopulmonary pathology. Reading Location: [id number] Discharge Plan Triage Chief Complaint: Palpitations ED Provider: Marquis Christian Dx/Rx/DC Orders Clinical Impression: Palpitation Prescriptions: No Action benztropine 0.5 mg tablet 0.5 mg PO BID glyburide 5 mg tablet 10 mg PO BID Lantus Solostar U-100 Insulin 100 unit/mL (3 mL) insulin pen 32 unit SC QDAY aripiprazole 30 mg tablet 30 mg PO QDAY lisinopril 30 mg tablet 30 mg PO DAILY metformin 1,000 mg tablet 1,000 mg PO BID aspirin [Adult Aspirin Regimen] 81 mg tablet,delayed release (DR/EC) 81 mg PO DAILY pantoprazole 20 mg tablet,delayed release (DR/EC) 20 mg PO DAILY amlodipine 10 mg tablet 10 mg PO DAILY tamsulosin 0.4 mg capsule 0.4 mg PO DAILY Ozempic 0.25 mg or 0.5 mg (2 mg/3 mL) pen injector 0.25 mg subcut QWEEK Rx Instructions: for 4 weeks citalopram 40 MG tablet 40 mg PO DAILY atenolol 25 mg tablet 75 mg PO BID rosuvastatin 20 mg tablet 20 mg PO QHS Primary Care Provider: Jose Saul Referrals: Jose Saul MD [Primary Care Provider] - Geovani Ahn MD [Med Staff - Active Staff] - Activity Restrictions/Additional Instructions: Follow-up with your assistant auditor Dr. Ahn within the week call his office for an appointment today. I did discuss with him what was going on and he states that he wants to see you within the week. Return with worsening symptoms or any other concerns. Wear Holter monitor as instructed. Print Language: Indonesian Disposition Disposition: Home, Self Care
--- NOTE | 2025-03-18 08:15 | RAD_ITS ---
PROCEDURE: CHEST PA AND LATERAL 03/18/2025 REASON FOR EXAM: CHEST PAIN TECHNIQUE: CHEST PA AND LATERAL COMPARISON: Portable chest, 11/01/2024 FINDINGS: There is improved aeration of the left lung with improved excursion of the left hemidiaphragm. The heart size is normal. The mediastinum and pulmonary vascular pattern are normal. The upper abdominal bowel gas pattern is normal. There are no significant bony abnormalities of the chest. RAD/Chest PA and Lateral IMPRESSION: Improved aeration of the left lung as described. No evidence of acute cardiopu lmonary pathology. Reading Location: [id number]
[2025-03-18 08:44] LABS: Anion Gap 12 (5-15); BUN 26 mg/dL (4-19); BUN/Creat Ratio 16.4 RATIO (10-20); Calcium,Total 9.3 mg/dL (7.6-11.0); Carbon Dioxide 22.1 mmol/L (21.0-32.0); Chloride 104 mmol/L (98-108); Creatinine, Serum 1.61 mg/dL (0.70-1.20); EST Glomerular Filtration Rate 47 (>60); Estimated Creatinine Clearance 53.47 ml/min (50-250); Free T3 3.3 pg/mL (2.18-3.98); Glucose 169 mg/dL (70-99); Potassium 4.7 mmol/L (3.3-5.1); Sodium Level 139 mmol/L (133-145); Troponin T High Sensitivity 59 ng/L (<=22)
[2025-03-18 09:40] VITALS: BP 106/74; PULSE 61; RESP 14; O2SAT 99
[2025-03-18 10:57] LABS: Troponin T High Sens 2 HR 95 ng/L (<=22)
[2025-03-18 11:00] VITALS: BP 125/90; PULSE 62; RESP 15; O2SAT 100
[2025-03-18 12:37] VITALS: BP 125/90; PULSE 62; RESP 15; TEMP 36.6; O2SAT 100
== END 2025-03-18 12:38 | disposition home or self-care (01) ==
PROVIDERS: Emergency Provider Emergency Medicine; PCP Family Medicine; Visit Provider Emergency Medicine
DX: R00.2 Palpitations (principal); F20.9 Schizophrenia, unspecified; E11.9 Type 2 diabetes mellitus without complications; I10 Essential (primary) hypertension; I25.2 Old myocardial infarction; E78.5 Hyperlipidemia, unspecified; Z79.84 Long term (current) use of oral hypoglycemic drugs; Z79.85 Long-term (current) use of injectable non-insulin antidiabetic drugs; Z79.82 Long term (current) use of aspirin; Z79.899 Other long term (current) drug therapy; Z87.891 Personal history of nicotine dependence
CPT/HCPCS: 36415; 71046; 80048; 84439; 84443; 84481; 84484; 85025; 93005; 93225; 93226; 96360; 96361; 99284; A4216

== ENCOUNTER → 2025-03-18 | Outpatient (CLI) | payer MEDICARE, OTHER, SELFPAY | END | disposition home or self-care (01) | PROVIDERS: PCP Family Medicine; Visit Provider Emergency Medicine | DX: Z00.00 Encounter for general adult medical examination without abnormal findings (principal) ==

== ENCOUNTER 2025-04-27 19:10 | Emergency (ER) | payer MEDICARE, SELFPAY ==
[2025-04-27 19:12] VITALS: BP 130/70; PULSE 73; RESP 16; TEMP 37.1; O2SAT 97; BMI 28.4
--- NOTE | 2025-04-27 19:22 | EDS_ITS ---
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) Schizophrenia Obesity Type 2 diabetes mellitus Essential (primary) hypertension HLD (hyperlipidemia) Home Medications ?Medication ?Instructions ?Recorded ?Last Taken ?Type citalopram 40 mg tablet 40 mg PO DAILY 07/19/1307/03 08:00 History 40 MG aripiprazole 30 mg tablet 30 mg PO QDAY 02/28/18 Unkno wn History atenolol 25 mg tablet 75 mg PO BID 05/28/20 Unknow n History aspirin 81 mg tablet,delayed 81 mg PO DAILY 02/05/21 U nknown History release (Adult Aspirin Regimen) metformin 1,000 mg tablet 1,000 mg PO BID 02/05/21 Unk nown History pantoprazole 20 mg tablet,delayed 20 mg PO DAILY 04/26 Unknown History release rosuvastatin 20 mg tablet 20 mg PO QHS 04/26/23 Unknow n History semaglutide 0.25 mg or 0.5 mg (2 0.25 mg subcut QWEEK 04/26/23 Unknown History mg/3 mL) subcutaneous pen injector (Ozempic) tamsulosin 0.4 mg capsule 0.4 mg PO DAILY 04/26/23 Unk nown History lisinopril 30 mg tablet 15 mg PO DAILY 03/28/25 Unkn own History Allergy/AdvReac Type Severity Reaction Status Date / Time No Known Allergies Allergy Verified 04/27/25 19:11 Family History Grandfather Heart disease Surgical History Hx of cholecystectomy Hx of appendectomy Social History Smoking Status: Former smoker alcohol intake: never caffeine: Yes Type: coffee Number of servings: 1 what type of physical activity do you participate in: walking frequency: daily duration: 15-30 minutes/day EXAM Physical Exam Const Vital Signs: 04/27/25 19:12 04/27/25 21:11 Temperature 98.7 F Temperature Source Oral Pulse Rate 73 68 Respiratory Rate 16 18 Blood Pressure 130/70 H 136/76 H Blood Pressure Mean 90 96 Pulse Ox 97 97 Oxygen Delivery Method Room Air Room Air [facility] Narrative Medical decision making narrative: HISTORY OF PRESENT ILLNESS: Chief complaint: Visual destinations, dysuria and constipation 64-year-old male history of schizophrenia, hyperlipidemia, hypertension type 2 diabetes presents with multiple complaints including visual hallucinations, difficulty urinating and constipation. Per sister over the last week patient has been displaying unusual behavior. States usually he is very quiet but over last week has been more talkative. Because his been more talkative he has been describing homicidal ideations and describing visual elucidation's. Some of them are violent. 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 He notes he would like to kill a person by name of Tripp Evangelista. [place] Patient also notes symptoms of constipation and difficulty urinating. He notes he just went to the bathroom prior to my evaluation. He denies abdominal pain, chest pain. Denies any recent head trauma. Denies any focal numbness weakness or loss of sensation. Denies cough fever or chills. REVIEW OF SYSTEMS: Pertinent positives: Auditory hallucinations, visual donations, suicidal ideations, homicidal ideations Pertinent negatives: As per HPI PHYSICAL EXAM: Nursing triage notes reviewed, Vital signs reviewed Constitutional: please see [facility] HENT: MMM Eyes: Pupils equal round and reactive to light, Extraocular muscles intact Neck: No stridor, no JVD, full neck ROM Lungs: Clear to auscultation, No wheezing or rales. No increased work of breathing, no conversational dyspnea, no accessory muscle use, no nasal flaring. No respiratory distress noted Heart: Regular rate and rhythm, No murmurs, No rubs and No gallops, 2+ distal pulses (radial, femoral, posterior tibial) in all extremities Abdomen: Soft, there is no tenderness, rigidity, rebound or guarding, no obvious peritoneal signs, no palpable pulsatile abdominal masses, no auscultated abdominal bruit : No CVAT Extremities: No edema Neuro: Alert and oriented x3, neuro exam at baseline, cranial nerves II through XII are intact. No pain with extraocular muscle movement. There is negative test of skew. 5 of 5 strength in upper and lower extremities in flexion extension. Intact sensation to light touch in upper and lower extremity dermatomes. No truncal or extremity ataxia. No dysdiadochokinesia. Normal gai t. 2+ reflexes in upper and lower extremities. No meningeal signs. Negative Babinski. NIH of 0. Skin: No rash or lesions noted MEDICAL DECISION MAKING: Chief Complaint: please see [facility] External records reviewed: Patient is been following up at recent visit Factors affecting care: As per [facility] Social determinants of health: none History obtained from others: sister Consults: Behavioral social work [facility] Narrative: Patient was initially hemodynamically stable, afebrile and nontoxic-appearing. Exam without focal neurologic deficit. Abdomen soft nontender not distended or tympanic. No evidence of trauma. I considered the following differential diagnosis: Decompensated schizophrenia, ICH, mass, urinary retention, electrolyte disturbance I obtained a broad lab and imaging to further determine if the patient was suffering from a life-threatening etiology. Initially gave aripiprazole ALL IMAGES (IF OBTAINED) HAVE BEEN PERSONALLY REVIEWED AND INTERPRETED BY MYSELF. CT head negative for ICH CBC without leukocytosis, severe anemia, no thrombocytopenia. BMP without evidence of significant electrolyte abnormalities, no anion gap, no acute kidney injury. Bladder scanShowed greater than 200 cc of urine. This consistent with urinary retention. Will place a Zuniga catheter. Urinalysis shows no evidence of urinary inflammation suggestive of UTI Urine tox cream negative Serum alcohol negative Patient was medically cleared. Behavioral evaluate the patient recommended placement. Awaiting final placement. [place] slip and transfer form signed. The proper authorities were alerted to try to contact Rodrigo Evangelista to alert him of the patient's homicidal ideation The patient and/or family, caregivers express understanding. The patient and/or family, caregivers agrees with the plan. Shared decision making: I will have a discussion with the patient and or visitors regarding risk/benefits of further testing or admission. They will be made aware of of the risk/benefits inherent in this decision they will be given the opportunity to voice understanding. Total critical care time today provided was at least 0 minutes. This excludes separately billable procedures. Critical care time (if documented) is secondary to the patient having high probability of clinically significant/life threatening deterioration in the patient's condition which required my urgent intervention. Impression: 1. Decompensate schizophrenia 2. Psychosis 3. Homicidal ideation Dispo: Transferred to behavioral health psych versus [facility] This note was generated with [employer] dictation software. It may contain incorrect words, spelling, and punctuation that were not noted in review of the chart prior to signing. Lab Data Labs: Laboratory Results - last 24 hr 04/27/25 04/27/25 20:24 20:57 WBC 9.2 RBC 4.82 Hgb 15.5 Hct 43.7 MCV 90.7 MCH 32.2 H MCHC 35.5 RDW Std Deviation 41.1 RDW Coeff of Kandice 12.4 Plt Count 218 MPV 9.8 Immature Gran % (Auto) 0.300 Neut % (Auto) 56.2 Lymph % (Auto) 32.6 Wetzel % (Auto) 8.5 Eos % (Auto) 2.0 Baso % (Auto) 0.4 Absolute Neuts (auto) 5.2 Absolute Lymphs (auto) 3.00 Nucleated RBC % 0 Sodium 136 Potassium 4.3 Chloride 100 Carbon Dioxide 24.7 Anion Gap 11 BUN 14 Creatinine 1.00 Estim Creat Clear Calc 83.05 Est GFR (MDRD) Non-Af 84 BUN/Creatinine Ratio 14.3 Glucose 143 H Calcium 9.6 Urine Color Straw Urine Clarity Clear Urine pH 7.0 Ur Specific [place] 1.010 Urine Protein Negative Urine Glucose (UA) 1000 H Urine Ketones Negative Urine Occult Blood Negative Urine Nitrite Negative Urine Bilirubin Negative Urine Urobilinogen Normal Ur Leukocyte Esterase Negative Urine RBC 0 SEEN Urine WBC 0 SEEN Ur Squamous Epith Cells 0-5 SEEN Urine Bacteria 0 SEEN Urine Mucus 0 SEEN Urine Opiates Screen NEGATIVE U Buprenorphine Qual NEGATIVE Ur Oxycodone Screen NEGATIVE Urine Methadone Screen NEGATIVE Urine Fentanyl Screen NEGATIVE Ur Barbiturates Screen NEGATIVE Ur Phencyclidine Scrn NEGATIVE Ur Amphetamines Screen NEGATIVE U Benzodiazepines Scrn NEGATIVE Urine Cocaine Screen NEGATIVE U Cannabinoids Screen NEGATIVE Ethyl Alcohol < 10.1 Radiography Diagnostic Testing: Clinical Impression(s) from Imaging Studies Brain CT 04/27/25 19:37 IMPRESSION: No intracranial findings Reading Location: [place] [address] Discharge Plan Triage Chief Complaint: Mental Health ED Provider: Guillermo Ramirez Dx/Rx/DC Orders Prescriptions: No Action aripiprazole 30 mg tablet 30 mg PO QDAY metformin 1,000 mg tablet 1,000 mg PO BID aspirin [Adult Aspirin Regimen] 81 mg tablet,delayed release (DR/EC) 81 mg PO DAILY pantoprazole 20 mg tablet,delayed release (DR/EC) 20 mg PO DAILY tamsulosin 0.4 mg capsule 0.4 mg PO DAILY Ozempic 0.25 mg or 0.5 mg (2 mg/3 mL) pen injector 0.25 mg subcut QWEEK Rx Instructions: for 4 weeks lisinopril 30 mg tablet 15 mg PO DAILY citalopram 40 MG tablet 40 mg PO DAILY atenolol 25 mg tablet 75 mg PO BID rosuvastatin 20 mg tablet 20 mg PO QHS Primary Care Provider: Jose Saul Referrals: Jose Saul MD [Primary Care Provider] - Print Language: Bulgarian
--- NOTE | 2025-04-27 19:36 | EKG12_ITS ---
Test Reason : DYSRHYTHMIA Blood Pressure : */* mmHG Vent. Rate : 72 BPM Atrial Rate : 72 BPM P-R Int : 148 ms QRS Dur : 84 ms QT Int : 378 ms P-R-T Axes : 57 -16 40 degrees QTcB Int : 413 ms Normal sinus rhythm Normal ECG Confirmed by KD HIGHTOWER, BAO ([id number]), art editor ALLA MORENO ([id number]) on 04/29/2025 7:32:21 AM Referred By: Confirmed By: BAO YI MD
--- NOTE | 2025-04-27 19:37 | CT_ITS ---
PROCEDURE: BRAIN/HEAD WITHOUT CONTRAST 04/27/2025 REASON FOR EXAM: CHANGE IN MENTAL STATUS, VISUAL HALLUCINATIONS TECHNIQUE: BRAIN/HEAD WITHOUT CONTRAST Coronal and Sagittal reconstruction series were provided. One or more dose reduction techniques were used (e.g., Automated exposure control, adjustment of the mA and/or kV according to patient size, use of iterative reconstruction technique. RADIATION DOSE SUMMARY: CTDlvol: 45 mGy DLP: 796 mGycm COMPARISON: No FINDINGS: No abnormal brain densities. No intracranial hemorrhage. No hydrocephalus or midline shift. No acute scalp or skull pathology. Unremarkable orbits. Clear sinuses. CT/Brain/Head without Contrast IMPRESSION: No intracranial findings Reading Location: [place] [address]
--- OUTSIDE RECORDS SUMMARY | 2025-04-27 20:01 | XMS RPT_ITS | CCD ---
Author Organization [facility] Care Team Providers Care Barrel Rifler Hook Name Role Phone Madelyn Allison Unavailable Unavailable Alba COHEN, Isi Escobar Unavailable Unavailable MD Ahn Cyril S Unavailable Madelyn Allison Unavailable Unavailable DeFinis, Harumi Y Unavailable Unavailable DeFinis, Harumi Y Unavailable Unavailable Sofyais, Harumi Y Unavailable Unavailable Dorys HIGHTOWER, Dr. Garcia Primary Care Provider Dr. Jose Saul MD Attending Provider Dr. Jose Saul MD Referring Provider [phone] Dr. Marquis Leo DO Emergency Provider Dr. Marquis Leo DO Attending Provider Dr. Jose Saul MD Primary Care Provider Dr. Marquis Leo DO Attending Provider Dr. Geovani Ahn MD Attending Provider Dr. Marquis Leo DO Referring Provider Dr. Jose Saul MD Referring Provider [phone] Elina KERR-Blade Samaniego Attending Provider Marquis Leo Attending Unavailable Jose Saul Primary Care Unavailable Jose Saul Primary Care Unavailable Jose Saul Attending Unavailable Jose Saul Referring Unavailable Marquis Leo Referring Unavailable Geovani Ahn Attending Unavailable Jose Saul Primary Care Unavailable Jose Saul Referring Unavailable Jose Saul Primary Care Unavailable Blade Antoine NP Attending Unavailable Starla Sanchez Attending Unavailable Jose Saul Primary Care Unavailable Jose Saul Primary Care Unavailable Marquis Leo Attending Unavailable Jose Mariee Attending Unavailable Jose Saul Primary Care Unavailable Blade Antoine NP Referring Unavailable Jose Saul Primary Care Unavailable Blade Antoine NP Attending Unavailable Medications Current Medications Medication Drug Class(es) Dates Sig (Normalized) Sig (Original) ARIPiprazole 30 mg oral tablet (11 sources) Atypical Antipsychotic Start: 02-28-2018 take 1 tablet by mouth once daily Aripiprazole 30 mg tablet Active 30 mg PO daily February 28, 2018 12:00am Start: 08-27-2014 take 1 tablet by rose th once daily ABILIFY 30 MG TABS One tablet by mouth daily ARIPIPRAZOLE [id number] Geovani Ahn MD aspirin 81 mg delayed release oral tablet (20 sources) Nonsteroidal Anti-inflammatory Drug Start: 02-05-2021 take 1 tablet by mouth once daily Aspirin (Adult Aspirin Regimen) 81 mg tablet,delayed release (DR/EC) Active 81 mg PO DAILY February 05, 2021 12:00am Start: 02-28-2018 End: 02-21-2020 Aspirin (Adult Low Dose Aspi rin) 81 mg tablet,delayed release (DR/EC) Discontinued 81 mg PO daily February 28, 2018 12:00am February 21, 2020 3:16pm Start: 08-08-2013 take 1 tablet by rose th once daily ASPIRIN EC 81 MG TBEC One tablet by mouth daily ASPIRIN [id number] Emelia Pool Start: 08-02-2013 End: 08-11-2016 take 1 tablet by mouth once daily ASPIRIN 81 MG TABS One tablet by mouth daily ASPIRIN [id number] Geovani Ahn MD Start: 08-02-2013 End: 08-11-2016 take 1 tablet by mouth once daily ASPIRIN 81 MG TABS One tablet by mouth daily ASPIRIN [id number] Geovani Ahn MD atenolol 25 mg oral tablet (20 sources) beta-Adrenergic Piero Start: 05-28-2020 take 3 tablets by mouth twice daily Atenolol 25 mg tablet Active 75 mg PO TWICE A DAY May 28, 2020 11:10am Start: 08-09-2013 take 1 tablet by rose th twice daily ATENOLOL 50 MG TABS One tablet by mouth twice daily ATENOLOL [id number] Isi Willis RN Start: 08-08-2013 take 1 tablet by rose th once daily ATENOLOL 50 MG TABS One tablet by mouth daily ATENOLOL [id number] Geovani Ahn MD Start: 07-19-2013 End: 05-28-2020 take 1 tablet by mouth once daily Atenolol 25 MG tablet Discontinued 25 mg PO DAILY July 19, 2013 12:00am May 28, 2020 11:11am citalopram 40 mg oral tablet (20 sources) Serotonin Reuptake Inhibitor Start: 07-19-2013 End: 08-20-2015 take 1 tablet by mouth once daily Citalopram 40 MG tablet Active 40 mg PO DAILY July 19, 2013 12:00am lisinopril 30 mg oral tablet (20 sources) Angiotensin Converting Enzyme Inhibitor Start: 03-28-2025 Lisinopril 30 mg tablet Active 15 mg PO DAILY March 28, 2025 9:59am Start: 02-05-2021 End: 03-28-2025 take 1 tablet by mouth once daily Lisinopril 30 mg tablet Discontinued 30 mg PO DAILY February 05, 2021 12:00am March 28, 2025 10:00am Start: 05-28-2020 End: 02-05-2021 Lisinopril 5 mg tablet Disco ntinued 30 mg PO DAILY May 28, 2020 11:09am February 05, 2021 11:20am Start: 03-01-2018 End: 05-28-2020 take 2 tablets by mouth once daily Lisinopril 5 mg tablet Discontinued 10 mg PO DAILY March 01, 2018 11:54am May 28, 2020 11:11am Start: 08-09-2013 take 1 tablet by rose th once daily LISINOPRIL 2.5 MG TABS One tablet by mouth daily LISINOPRIL [id number] Isi Willis RN Start: 08-09-2013 take 1 tablet by rose th once daily LISINOPRIL 10 MG TABS One tablet by mouth daily LISINOPRIL [id number] Geovani Ahn MD Start: 07-19-2013 End: 03-01-2018 take 1 tablet by mouth once daily Lisinopril 5 MG tablet Discontinued 5 mg PO DAILY July 19, 2013 12:00am March 01, 2018 11:56am metFORMIN hydrochloride 1000 mg oral tablet (20 sources) Biguanide Start: 02-05-2021 take 1 tablet by mouth twice daily Metformin 1,000 mg tablet Active 1000 mg PO TWICE A DAY February 05, 2021 12:00am Start: 05-28-2020 End: 02-05-2021 take 2 tablets by mouth twice daily Metformin 500 mg tablet Discontinued 1000 mg PO TWICE A DAY May 28, 2020 11:11am February 05, 2021 11:21am Start: 07-19-2013 End: 05-28-2020 take 1 tablet by mouth twice daily Metformin 500 mg tablet Discontinued 500 mg PO TWICE A DAY March 01, 2018 11:54am May 28, 2020 11:11am pantoprazole 20 mg delayed release oral tablet (11 sources) Proton Pump Inhibitor Start: 04-26-2023 take 1 tablet by mouth once daily Pantoprazole 20 mg tablet,delayed release (DR/EC) Active 20 mg PO DAILY April 26, 2023 12:00am Start: 08-02-2013 take 1 tablet by rose th once daily PROTONIX 20 MG TBEC One tablet by mouth daily PANTOPRAZOLE SODIUM [id number] Isi Willis RN rosuvastatin calcium 20 mg oral tablet (20 sources) HMG-CoA Reductase Inhibitor Start: 04-26-2023 take 1 tablet by mouth at bedtime Rosuvastatin 20 mg tablet Active 20 mg PO AT BEDTIME April 26, 2023 2:03pm Start: 05-28-2020 End: 04-26-2023 take 10 mg by mouth at bedtime Rosuvastatin 20 mg tabl et Discontinued 10 mg PO AT BEDTIME May 28, 2020 11:11am April 26, 2023 2:06pm Start: 03-01-2018 End: 05-28-2020 take 1 tablet by mouth at bedtime Rosuvastatin 20 mg tablet Discontinued 20 mg PO AT BEDTIME March 01, 2018 11:52am May 28, 2020 11:11am Start: 08-08-2013 take 1 tablet by rose th once daily CRESTOR 20 MG TABS One tablet by mouth daily ROSUVASTATIN CALCIUM [id number] Geovani Ahn MD Start: 07-19-2013 End: 03-01-2018 take 10 mg by mouth at bedtime Rosuvastatin 20 MG tabl et Discontinued 10 mg PO AT BEDTIME July 19, 2013 12:00am March 01, 2018 11:56am Semaglutide (3 sources) Start: 04-26-2023 Semaglutide (Ozempic) 0.25 mg or 0.5 mg (2 mg/3 mL) pen injector Active 0.25 mg SC EVERY WEEK April 26, 2023 12:00am for 4 weeks tamsulosin hydrochloride 0.4 mg oral capsule (3 sources) alpha-Adrenergi c Piero Start: 04-26-2023 take 1 capsule by mouth once daily Tamsulosin 0.4 mg capsule Active 0.4 mg PO DAILY April 26, 2023 12:00am Completed/Discontinued Medications Medication Drug Class(es) Dates Sig (Normalized) Sig (Original) amLODIPine 10 mg oral tablet (3 sources) Dihydropyridine Calcium Channel Piero Start: 04-26-2023 End: 03-28-2025 take 1 tablet by mouth once daily Amlodipine 10 mg tablet Discontinued 10 mg PO DAILY April 26, 2023 12:00am March 28, 2025 9:26am atorvastatin 20 mg oral tablet (16 sources) HMG-CoA Reductase Inhibitor Start: 08-02-2013 End: 08-08-2013 take 1 tablet by mouth once daily LIPITOR 20 MG TABS One tablet by mouth daily ATORVASTATIN CALCIUM [id number] Isi Willis RN benztropine mesylate 0.5 mg oral tablet (19 sources) Anticholinergic, Antihistamine Start: 03-01-2018 End: 03-28-2025 take 1 tablet by mouth twice daily Benztropine 0.5 mg tablet Discontinued 0.5 mg PO TWICE A DAY March 01, 2018 12:00am March 28, 2025 9:27am Start: 08-08-2013 End: 08-20-2015 take 1 tablet by mouth once daily at bedtime BENZTROPINE MESYLATE 1 MG TABS One tablet by mouth daily at bedtime BENZTROPINE MESYLATE [id number] Geovani Ahn MD cholecalciferol 2000 unt oral tablet (4 sources) Vitamin D Start: 03-01-2017 take 1 tablet by mouth once daily VITAMIN D 2000 UNIT TABS One tablet by mouth daily CHOLECALCIFEROL [id number] Geovani Ahn MD cinnamon bark 500 mg oral capsule (4 sources) Start: 03-01-2017 take 1 tablet by mouth once daily CINNAMON 500 MG CAPS One tablet by mouth daily CINNAMON [id number] Geovani Ahn MD fish oil (4 sources) Start: 03-01-2017 take 1 tablet by mouth once daily FISH OIL CAPS One tablet by mouth daily OMEGA-3 FATTY ACIDS CAPS [id number] Geovani Ahn MD Start: 03-01-2017 take 1 tablet by rsoe th once daily FISH OIL CAPS One tablet by mouth daily OMEGA-3 FATTY ACIDS CAPS [id number] Geovani Ahn MD glyBURIDE 5 mg oral tablet (20 sources) Sulfonylurea Start: 05-28-2020 End: 03-28-2025 take 2 tablets by mouth twice daily Glyburide 5 mg tablet Discontinued 10 mg PO TWICE A DAY May 28, 2020 11:11am March 28, 2025 9:27am Start: 03-01-2018 End: 05-28-2020 take 1 tablet by mouth once daily Glyburide 5 mg tablet Discontinued 5 mg PO daily March 01, 2018 12:00am May 28, 2020 11:11am Start: 08-08-2013 take 1 tablet by rose th once daily GLYBURIDE 5 MG TABS One tablet by mouth daily GLYBURIDE [id number] Geovani Ahn MD Start: 07-19-2013 End: 03-01-2018 take 2 tablets by mouth at dinner Glyburide 5 MG tablet Discontinued 10 mg PO WITH DINNER July 19, 2013 12:00am March 01, 2018 11:53am Start: 07-19-2013 End: 03-01-2018 take 10 mg by mouth at breakfast Glyburide Discontinue d 10 mg PO WITH BREAKFAST July 19, 2013 12:00am March 01, 2018 11:53am hydroCHLOROthiazide 12.5 mg oral tablet (3 sources) Thiazide Diuretic Start: 02-05-2021 End: 04-26-2023 take 1 tablet by mouth once daily in the morning Hydrochlorothiazide 12.5 mg tablet Discontinued 12.5 mg PO EVERY MORNING February 05, 2021 12:00am April 26, 2023 2:06pm insulin detemir 100 unt/ml injectable solution (8 sources) Insulin Analogue Start: 08-08-2013 take 10 [IU] by subcutaneous injection once daily LEVEMIR 100 UNIT/ML SOLN 10 units SQ daily INSULIN DETEMIR [id number] Isi Willis RN Start: 08-08-2013 take 10 [IU] by subc utaneous injection once daily LEVEMIR 100 UNIT/ML SOLN 10 units SQ daily INSULIN DETEMIR [id number] Isi Willis RN 3 ml insulin glargine 100 unt/ml pen injector (20 sources) Insulin Analogue Start: 02-05-2021 End: 03-28-2025 Insulin Glargine (Lantus Solostar U-100 Insulin) 100 unit/mL (3 mL) insulin pen Discontinued 32 U SC daily February 05, 2021 11:20am March 28, 2025 9:27am Start: 03-01-2018 End: 02-05-2021 Insulin Glargine (Lantus Heather ostar U-100 Insulin) 100 unit/mL (3 mL) insulin pen Discontinued 30 U SC daily March 01, 2018 12:00am February 05, 2021 11:22am Start: 08-08-2013 take 32 [IU] by subc utaneous injection at bedtime LANTUS 100 UNIT/ML SOLN 32 unit sq at bedtime INSULIN GLARGINE [id number] Geovani Ahn MD Start: 08-08-2013 take 18 [IU] by subc utaneous injection at bedtime LANTUS 100 UNIT/ML SOLN 18 unit sq at bedtime INSULIN GLARGINE [id number] Geovani Ahn MD Start: 08-08-2013 take 20 [IU] by subc utaneous injection at bedtime LANTUS 100 UNIT/ML SOLN 20 unit sq at bedtime INSULIN GLARGINE [id number] Geovani Ahn MD Start: 08-08-2013 take 32 [IU] by subc utaneous injection at bedtime LANTUS 100 UNIT/ML SOLN 32 unit sq at bedtime INSULIN GLARGINE [id number] Geovani Ahn MD Start: 08-08-2013 take 20 [IU] by subc utaneous injection at bedtime LANTUS 100 UNIT/ML SOLN 20 unit sq at bedtime INSULIN GLARGINE [id number] Geovani Ahn MD Start: 08-08-2013 take 18 [IU] by subc utaneous injection at bedtime LANTUS 100 UNIT/ML SOLN 18 unit sq at bedtime INSULIN GLARGINE [id number] Geovani Ahn MD insulin, aspart, human 100 unt/ml injectable solution (16 sources) Insulin Analogue Start: 08-08-2013 End: 08-08-2013 NOVOLOG 100 UNIT/ML SOLN per sliding scale as needed INSULIN ASPART [id number] Isi Willis RN Start: 08-08-2013 End: 08-08-2013 NOVOLOG 100 UNIT/ML SOLN per sliding scale as needed INSULIN ASPART [id number] Geovani Ahn MD Start: 08-08-2013 End: 08-08-2013 NOVOLOG 100 UNIT/ML SOLN per sliding scale as needed INSULIN ASPART [id number] Geovani Ahn MD Start: 08-08-2013 NOVOLOG 100 UN IT/ML SOLN per sliding scale as needed INSULIN ASPART [id number] sIi Willis RN Lantus SoloStar Pen (3 sources) Start: 07-19-2013 End: 03-01-2018 Lantus SoloStar Pen Discontinued 20 U SC AT BEDTIME July 19, 2013 12:00am March 01, 2018 11:54am MULTIPLE VITAMINS-MINERALS (2 sources) Start: 03-01-2017 take 1 tablet by mouth once daily CENTRUM SILVER TABS One tablet by mouth daily MULTIPLE VITAMINS-MINERALS [id number] Geovani Ahn MD MULTIPLE VITAMINS-MINERALS (2 sources) Start: 03-01-2017 take 1 tablet by mouth once daily CENTRUM SILVER TABS One tablet by mouth daily MULTIPLE VITAMINS-MINERALS [id number] Geovani Ahn MD Howe-3 Fatty Acids (Fish Oil Concentrate) 1,000 mg capsule (3 sources) Start: 03-01-2018 End: 02-21-2020 take 1 capsule by mouth once daily Howe-3 Fatty Acids (Fish Oil Concentrate) 1,000 mg capsule Discontinued 1000 mg PO daily March 01, 2018 12:00am February 21, 2020 3:16pm omeprazole 20 mg delayed release oral capsule (19 sources) Proton Pump Inhibitor Start: 08-08-2013 End: 08-20-2015 take 1 tablet by mouth once daily OMEPRAZOLE 20 MG CPDR One tablet by mouth daily OMEPRAZOLE [id number] Geovani Ahn MD Start: 07-19-2013 End: 03-01-2018 take 20 mg by mouth once daily Omeprazole Discontinued 20 mg PO DAILY July 19, 2013 12:00am March 01, 2018 11:55am perphenazine 16 mg oral tablet (19 sources) Phenothiazine Start: 07-19-2013 End: 03-01-2018 take 1 tablet by mouth at bedtime Perphenazine 16 MG tablet Discontinued 16 mg PO AT BEDTIME July 19, 2013 12:00am March 01, 2018 11:55am rivaroxaban 10 mg oral tablet (16 sources) Factor Xa Inhibitor Start: 08-02-2013 End: 08-08-2013 take 1 tablet by mouth once daily XARELTO 10 MG TABS One tablet by mouth daily RIVAROXABAN [id number] Isi Willis RN ziprasidone 60 mg oral capsule (20 sources) Atypical Antipsychotic Start: 08-02-2013 take 1 tablet by mouth twice daily GEODON 20 MG CAPS One tablet by mouth twice daily ZIPRASIDONE HCL [id number] Isi Willis RN Start: 08-02-2013 take 1 tablet by rose th twice daily GEODON 20 MG CAPS One tablet by mouth twice daily ZIPRASIDONE HCL [id number] Isi Willis RN Start: 07-19-2013 End: 03-01-2018 take 1 capsule by mouth twice daily Ziprasidone Hcl 60 MG capsule Discontinued 60 mg PO TWICE A DAY July 19, 2013 12:00am March 01, 2018 11:55am Problems Active Problems Problem Classification Problem Date Documented Date Episodic/Chronic Cardiac dysrhythmias (15 sources) Supraventricular tachycardia; 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] Onset: 07-20-2013 08-02-2013 Chronic Cardiac dysrhythmias (8 sources) Palpitations; Translations: [Palpitations] Onset: 01-09-2025 03-18-2025 Episodic Coronary atherosclerosis and other heart disease (3 sources) History of non-ST segment elevation myocardial infarction; Translations: [Old myocardial infarction] Onset: 07-20-2013 01-21-2021 Chronic Diabetes mellitus without complication (8 sources) Diabetes mellitus; Translations: [Type 2 diabetes mellitus without complications] Onset: 08-02-2013 08-02-2013 Chronic Disorders of lipid metabolism (12 sources) Hyperlipidemia; Translations: [Hyperlipidemia, unspecified] Onset: 08-02-2013 08-02-2013 Chronic Essential hypertension (12 sources) Hypertensive disorder; Translations: [Essential hypertension] Onset: 08-02-2013 08-02-2013 Chronic Other nutritional; endocrine; and metabolic disorders (16 sources) Body mass index (BMI) 37.0-37.9, adult; Translations: [Body mass index (BMI) 30.0-30.9, adult] Onset: 08-08-2013 08-20-2015 Chronic Other nutritional; endocrine; and metabolic disorders (6 sources) Body mass index (BMI) 30.0-30.9, adult; Translations: [Body mass index (BMI) 34.0-34.9, adult] Onset: 08-08-2013 08-27-2014 Chronic Other nutritional; endocrine; and metabolic disorders (2 sources) Body mass index (BMI) 34.0-34.9, adult; Translations: [Body mass index (BMI) 34.0-34.9, adult] Onset: 08-08-2013 08-08-2013 Chronic Unclassified (12 sources) Long-term drug therapy; Translations: [Other salvage determiner (current) drug therapy] Onset: 02-05-2014 Resolved: 08-20-2015 08-20-2015 Unclassified (2 sources) Other supraventricular tachycardia; Translations: [Other supraventricular tachycardia] Onset: 03-28-2025 Past or Other Problems Problem Classification Problem Date Documented Da te Episodic/Chronic Other aftercare (12 sources) Other long-term (current) drug therapy; Translations: [Long-term (current) use of other medications] Onset: 02-05-2014 Resolved: 08-20-2015 08-20-2015 Episodic Other screening for suspected conditions (not mental disorders or infectious disease) (4 sources) Raised cardiac enzyme or marker; Translations: [Other specified abnormal findings of blood chemistry] Onset: 10-30-2020 01-21-2021 Episodic Results Test Name Value Interpretation Reference Range Facility Cardiology Visit Reporton Cardiology Visit Report [facility] [address] [place] [address] OFFICE VISIT Date of Service: 03/28/25 MR#: [id number] Acct: [id number] Name: ALINE DENNIS Rep #: [id number] : 1960 Provider: JOHNATHON byers Age/Sex: 64/M [place] [facility] [place] Status: Signed HPI HPI History of Present Illness Details: ALINE DENNIS, is a 64 M who presents to the office today for a cardiovascular follow-up.??? He has a history of hypertension, hyperlipidemia, diabetes and schizophrenia.??? He also has a history of supraventricular tachycardia. He was evaluated [facility] emergency room on 2024 for concerns regarding palpitations. Twelve-lead ECG showed normal sinus rhythm at 86 bpm. He was discharged for outpatient follow-up along with wearing a Holter monitor. His elevated troponin was thought to be due to persistent tachycardia. Holter monitor on 03/18/2025 showed average rate 68 bpm and normal sinus rhythm. Rare PVCs and PACs were noted. He denies chest, arm, jaw, or neck discomfort. He acknowledges palpitation 2 weeks ago and none since that time. This has been ongoing for years. His episode in March 2025 occurred while sitting on the couch. He denies bilateral lower extreme edema. He denies shortness with activity, shortness of breath at rest, orthopnea, cough, or PND. He denies lightheadedness, dizziness, near-syncope, syncope. He denies fatigue. Intake Vital Signs 03/18/25 07:40 03/28/25 09:24 Height 5 ft 10 in 5 ft 10 in Weight: 210 lb BMI 30.1 BP 118/76 Blood Pressure Location Lt brachial Position Sitting Respiration 18 Pulse 75 Pulse Source Monitor Intake Visit Reasons: OVERDUE FOR F/U/LAST SEEN 2022 Financial Reporting Accountant Required: No Accompanied by: Mother Is patient in pain?: No Allergies No Known Allergies Allergy (Verified 03/28/25 09:24) Medications ???Medication ???Instructions ???Recorded ???Confirmed ???Type citalopram 40 mg tablet 40 mg PO DAILY 07/19/13 03/28/25 H istory aripiprazole 30 mg tablet 30 mg PO QDAY 02/28/18 03/28/25 Hi story atenolol 25 mg tablet 75 mg PO BID 05/28/20 03/28/25 His tory aspirin 81 mg tablet,delayed 81 mg PO DAILY 02/05/21 03/28/25 H istory release (Adult Aspirin Regimen) metformin 1,000 mg tablet 1,000 mg PO BID 02/05/21 03/28/25 History pantoprazole 20 mg tablet,delayed 20 mg PO DAILY 04/26/23 03/28/25 History release rosuvastatin 20 mg tablet 20 mg PO QHS 04/26/23 03/28/25 His tory semaglutide 0.25 mg or 0.5 mg (2 0.25 mg subcut QWEEK 04/26/2303/04 History mg/3 mL) subcutaneous pen injector (Ozempic) tamsulosin 0.4 mg capsule 0.4 mg PO DAILY 04/26/23 03/28/25 History lisinopril 30 mg tablet 15 mg PO DAILY 03/28/25 03/28/25 H istory Have you fallen in the past year?: Yes (passed out hit head 2-4 weeks ago.) [facility] Medical History History of non-ST elevation myocardial infarction (NSTEMI) (07/20/13) 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) Schizophrenia Obesity Type 2 diabetes mellitus Essential (primary) hypertension HLD (hyperlipidemia) Surgical History Hx of cholecystectomy Hx of appendectomy Family History Grandfather Heart disease Social History Smoking Status: Former smoker alcohol intake: never caffeine: Yes Type: coffee Number of servings: 1 what type of physical activity do you participate in: walking frequency: daily duration: 15-30 minutes/day ROS Const Const: Negative for fatigue or weakness Eyes Eyes: Negative for change in vision ENT ENT: Negative for dizziness or balance problems Cardio Chest Pain: No Palpitations: Yes (x one 2 weeks ago, none since) Edema: None Muscle aches with walking: None Resp Respiratory: Negative for SOB with activity, SOB at rest or SOB orthopnea SOB lying down GI GI: Negative nausea or heartburn : Negative for hematuria or frequent nighttime urination/ nocturia Musc Musc: Negative for balance problems Skin Skin: Negative non-healing lesions or rash Neuro Neuro: Negative for dizziness, lightheadedness, near syncope, syncope or weakness Endo Endo: Negative for fatigue Allergy Allergy/Immunology: Negative for rash Cardiology Exam Const Appearance: cooperative, healthy appearing, comfortable and no acute distress Nutritional Appearance: well nourished and obese Orientation: alert, awake and oriented x3 Head Head: normal to inspection Ears: hearing grossly normal bilaterally Nose: external nose normal Face and Sinus: face symmetric Mouth: moist mucous membranes E (more content not included)... Normal [facility] 12 Lead EKGon 03-18-2025 12 Lead EKG [facility] Cardi[facility] [address] [place] [address] 12 Lead EKG 03/18/25 0752 MR#: [id number] Acct: [id number] Name: ALINE DENNIS Rep #: [id number] : 1960 64 From: Geovani Ahn MD Attending Dr: Status: DEP ER Ordering Dr: Marquis Leo DO Date: 03/18/25 Location: ED Sex: M C Admitted: Test Reason : PALPS Blood Pressure : */* mmHG Vent. Rate : 86 BPM Atrial Rate : 86 BPM P-R Int : 168 ms QRS Dur : 84 ms QT Int : 342 ms P-R-T Axes : 66 -23 52 degrees QTcB Int : 409 ms Normal sinus rhythm Normal ECG Confirmed by GEOVANI AHN MD ([id number]), material expeditor ALLA MORENO ([id number]) on 03/19/2025 10:46:42 AM Referred By: AHMET Confirmed By: GEOVANI AHN MD 03/19/25 1046 Date Geovani Ahn MD CC: Dr. Jose Saul MD; Dr. Marquis Leo, DO Signed Normal [facility] Absolute lymphocyte countOrd ered By: Marquis Leo on 03-18-2025 Lymphocytes Auto (Unsp spec) [#/Vol] 3.22 10*3/uL 0.83-4.51 [facility] Absolute neutrophil countOrd ered By: Marquis Leo on 03-18-2025 Neutrophils (Bld) [#/Vol] 7.6 10*3/uL 2.0-7.7 [facility] Anion gap in Serum or Plasma Ordered By: Marquis Leo on 03-18-2025 Anion gap [Moles/Vol] 12 mmol/L - [facility] Automated lymphocyte count a s percentage of total leukocytesOrdered By: Marquis Leo on 03-18-2025 Lymphocytes/100 WBC Auto (Unsp spec) 26.4 % -41 [facility] BUN/creatinine ratioOrdered By: Marquis Leo on 03-18-2025 Urea nitrogen/Creatinine [Mass ratio] 16.4 mg/mg - [facility] Basic Metabolic Profile (BMP )on 03-18-2025 BUN/CRE 16.4 RATIO Normal - [facility] Comment on above: Performed By: #### L 501.9520, L501.83676, L501.4021, L506.0400, L100.0100, L500.2500 #### [facility] Laboratory [address] [place] [address]. [place], [place], [id number] Calcium [Mass/Vol] 9.3 mg/dL Normal 7.6-11.0 [facility] Comment on above: Performed By: #### L 501.9520, L501.52782, L501.4021, L506.0400, L100.0100, L500.2500 #### [facility] Laboratory [address] [place], [address] Chloride [Moles/Vol] 104 mmol/L Normal 98-108 [facility] [place] Comment on above: Performed By: #### L 501.9520, L501.38481, L501.4021, L506.0400, L100.0100, L500.2500 #### [facility] Laboratory [address] [place], [address] CO2 [Moles/Vol] 22.1 mmol/L Normal 21.0-32.0 [facility] Comment on above: Performed By: #### L 501.9520, L501.00753, L501.4021, L506.0400, L100.0100, L500.2500 #### [facility] [address] [place], [address] Creatinine [Mass/Vol] 1.61 mg/dL High 0.70-1.20 [facility] Comment on above: Performed By: #### L 501.9520, L501.20629, L501.4021, L506.0400, L100.0100, L500.2500 #### [facility] [address] [place], [address] ECRCL 53.47 ml/min Normal 50-250 [facility] Comment on above: Performed By: #### L 501.9520, L501.07600, L501.4021, L506.0400, L100.0100, L500.2500 #### [facility] [address] [place], [address] GAP 12 Normal 5-15 [facility] Comment on above: Performed By: #### L 501.9520, L501.42584, L501.4021, L506.0400, L100.0100, L500.2500 #### [facility] [address] [place], [address] GFR/1.73 sq M.predicted among non-blacks MDRD (S/P/Bld) [Vol rate/Area] 47 mL/min/{1.73_m2} Low >60 [facility] Comment on above: Result Comment: mL/m in/1.73m2 CKD-EPI Creatinine Equation (2020) Performed By: #### L 501.9520, L501.64552, L501.4021, L506.0400, L100.0100, L500.2500 #### [facility] [address] [place], [address] Glucose [Mass/Vol] 169 mg/dL High 70-99 [facility] Comment on above: Performed By: #### L 501.9520, L501.74767, L501.4021, L506.0400, L100.0100, L500.2500 #### [facility] [address] [place], [address] Potassium [Moles/Vol] 4.7 mmol/L Normal 3.3-5.1 [facility] Comment on above: Result Comment: Hemo lysis present, Results??could be affected. ?? Performed By: #### L 501.9520, L501.58235, L501.4021, L506.0400, L100.0100, L500.2500 #### [facility] [address] [place], [address] Sodium [Moles/Vol] 139 mmol/L Normal 133-145 [facility] Comment on above: Performed By: #### L 501.9520, L501.24304, L501.4021, L506.0400, L100.0100, L500.2500 #### [facility] [address] [place], [address] Urea nitrogen [Mass/Vol] 26 mg/dL High 4-19 [facility] Comment on above: Performed By: #### L 501.9520, L501.59955, L501.4021, L506.0400, L100.0100, L500.2500 #### [facility] [address] [place], [address] Basophil percentageOrdered B y: Marquis Leo on 03-18-2025 Basophils/100 WBC (Bld) 0.4 % 0-1 [facility] CBC W/Diff, Automatedon 03-03 Absolute Lymph 3.22 X10 3/uL Normal 0.83-4.51 [facility] Comment on above: Performed By: #### L 501.9520, L501.74598, L501.4021, L506.0400, L100.0100, L500.2500 #### [facility] [address] [place], [address] Absolute Neut 7.6 X10 3/uL Normal 2.0-7.7 [facility] Comment on above: Performed By: #### L 501.9520, L501.61688, L501.4021, L506.0400, L100.0100, L500.2500 #### [facility] [address] [place], [address] Basophils/100 WBC (Bld) 0.4 % Normal 0-1 [facility] Comment on above: Performed By: #### L 501.9520, L501.48768, L501.4021, L506.0400, L100.0100, L500.2500 #### [facility] [address] [place], [address] Eosinophils/100 WBC (Bld) 2.5 % Normal 0-5 [facility] Comment on above: Performed By: #### L 501.9520, L501.16180, L501.4021, L506.0400, L100.0100, L500.2500 #### [facility] [address] [place], [address] Erythrocyte distribution width (RBC) [Ratio] 13.8 % Normal 11.6-14.6 [facility] Comment on above: Performed By: #### L 501.9520, L501.78966, L501.4021, L506.0400, L100.0100, L500.2500 #### [facility] [address] [place], [address] Hematocrit (Bld) [Volume fraction] 46.4 % Normal 40-54 [facility] Comment on above: Performed By: #### L 501.9520, L501.05997, L501.4021, L506.0400, L100.0100, L500.2500 #### [facility] [address] [place], [address] Hemoglobin (Bld) [Mass/Vol] 15.7 g/dL Normal 13.0-16.5 [facility] Comment on above: Performed By: #### L 501.9520, L501.26424, L501.4021, L506.0400, L100.0100, L500.2500 #### [facility] [address] [place], [address] IG% 0.600 Normal 0.0-0.9 [facility] Comment on above: Result Comment: IG% - Immature Granulocytes (promyelocytes, myelocytes and metamyelocytes) > 1% indicates that a LEFT SHIFT is Present. Performed By: #### L 501.9520, L501.70656, L501.4021, L506.0400, L100.0100, L500.2500 #### [facility] [address] [place], [address] Lymphocytes/100 WBC (Bld) 26.4 % Normal 19-41 [facility] Comment on above: Performed By: #### L 501.9520, L501.88439, L501.4021, L506.0400, L100.0100, L500.2500 #### [facility] [address] [place], [address] MCH (RBC) [Entitic mass] 31.7 pg Normal 27.0-32.0 [facility] Comment on above: Performed By: #### L 501.9520, L501.54719, L501.4021, L506.0400, L100.0100, L500.2500 #### [facility] [address] [place], [address] MCHC (RBC) [Mass/Vol] 33.8 g/dL Normal 32-36 [facility] Comment on above: Performed By: #### L 501.9520, L501.70189, L501.4021, L506.0400, L100.0100, L500.2500 #### [facility] [address] [place], [address] MCV (RBC) [Entitic vol] 93.5 fL Normal 80-94 [facility] Comment on above: Performed By: #### L 501.9520, L501.06175, L501.4021, L506.0400, L100.0100, L500.2500 #### [facility] [address] [place], [address] Monocytes/100 WBC (Bld) 8.1 % Normal 0-10 [facility] Comment on above: Performed By: #### L 501.9520, L501.20674, L501.4021, L506.0400, L100.0100, L500.2500 #### [facility] [address] [place], [address] Neutrophils/100 WBC (Bld) 62.0 % Normal 47-70 [facility] Comment on above: Performed By: #### L 501.9520, L501.21217, L501.4021, L506.0400, L100.0100, L500.2500 #### [facility] [address] [place], [address] Nucleated RBC (Bld) [#/Vol] 0 10*3/uL Normal 0-5 [facility] Comment on above: Performed By: #### L 501.9520, L501.72417, L501.4021, L506.0400, L100.0100, L500.2500 #### [facility] [address] [place], [address] Platelet mean volume (Bld) [Entitic vol] 9.6 fL Normal 6.2-12.0 [facility] Comment on above: Performed By: #### L 501.9520, L501.12138, L501.4021, L506.0400, L100.0100, L500.2500 #### [facility] [address] [place], [address] Platelets (Bld) [#/Vol] 194 10*3/uL Normal 150-450 [facility] Comment on above: Performed By: #### L 501.9520, L501.94139, L501.4021, L506.0400, L100.0100, L500.2500 #### [facility] [address] [place], [address] RBC (Bld) [#/Vol] 4.96 10*6/uL Normal 4.6-6.2 [facility] Comment on above: Performed By: #### L 501.9520, L501.83323, L501.4021, L506.0400, L100.0100, L500.2500 #### [facility] [address] [place], [address] RDW SD 47.5 fl High 35.1-43.9 [facility] Comment on above: Performed By: #### L 501.9520, L501.90373, L501.4021, L506.0400, L100.0100, L500.2500 #### [facility] [address] [place], [address] WBC (Bld) [#/Vol] 12.2 10*3/uL High 4.4-11.0 [facility] Comment on above: Performed By: #### L 501.9520, L501.30831, L501.4021, L506.0400, L100.0100, L500.2500 #### [facility] [address] [place], [address] Carbon dioxide, total [Moles /volume] in Central venous bloodOrdered By: Marquis Leo on 03-18-2025 CO2 [Moles/Vol] 22.1 mmol/L 21.0-32.0 [facility] Chest PA and Lateralon 03-18 Chest PA and Lateral [facility] Imaging Services [address] [place] [address] Chest PA and Lateral MR#: [id number] Acct: [id number] Name: ALINE DENNIS Rep #: [id number] : 1960 M 64 From: Yo Mancuso MD PCP: Dr. Jose Saul MD Status: [facility] ER Study: Chest PA and Lateral Date of Exam: 03/18/25 Exam# [id number] Ordering Dr: Marquis Leo DO PROCEDURE: CHEST PA AND LATERAL 03/18/2025 REASON FOR EXAM: CHEST PAIN TECHNIQUE: CHEST PA AND LATERAL COMPARISON: Portable chest, 11/01/2024 FINDINGS: There is improved aeration of the left lung with improved excursion of the left hemidiaphragm. The heart size is normal. The mediastinum and pulmonary vascular pattern are normal. The upper abdominal bowel gas pattern is normal. There are no significant bony abnormalities of the chest. RAD/Chest PA and Lateral IMPRESSION: Improved aeration of the left lung as described. No evidence of acute cardiopulmonary pathology. Reading Location: [facility] CC: Dr. Jose Saul MD; Dr. Marquis Leo DO Shirrer: Signed Normal [facility] Chloride assayOrdered By: Leonardo Leo on 03-18-2025 Chloride [Moles/Vol] 104 mmol/L 98-108 [facility] Emergency Department Summary on 03-18-2025 Emergency Department Summary [facility] Medical Records Department [address] [place] [address] Emergency Department Summary 03/18/25 MR#: [id number] Acct: [id number] Name: ALINE DENNIS Rep #: [id number] : 1960 64 From: Marquis Leo DO PCP: Dr. Jose Saul MD Status:REG ER Location: ED HPI History of Present Illness Chief Complaint: Palpitations Narrative Narrative: Patient is a 64-year-old male with past medical history of AVNRT, schizophrenia, type 2 diabetes, hypertension, hyperlipidemia who presented to the emergency department with a concern of palpitations. Patient states that around 930 last night he felt like he was developing palpitations and he states that he decided to go to bed. He states that he woke up this morning with the same feeling and he states that he has a history of this. Patient notes that here in the emergency department he feels back to his baseline and does not have any complaints. Patient states that he has an appointment with his physician on his primary care doctor. He denies any recent travel history denies any history of blood clots he states that he is not on any blood thinning medications. 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) Schizophrenia Obesity Type 2 diabetes mellitus Essential (primary) hypertension HLD (hyperlipidemia) Home Medications ???Medication ???Instructions ???Recorded ???Last Taken ???Type citalopram 40 mg tablet 40 mg PO DAILY 07/19/13 07/19/13 0 8:00 History 40 MG aripiprazole 30 mg tablet 30 mg PO QDAY 02/28/18 Unknown His tory benztropine 0.5 mg tablet 0.5 mg PO BID 03/01/18 Unknown His tory atenolol 25 mg tablet 75 mg PO BID 05/28/20 Unknown Hist ory glyburide 5 mg tablet 10 mg PO BID 05/28/20 Unknown Hist ory aspirin 81 mg tablet,delayed 81 mg PO DAILY 02/05/21 Unknown Hi story release (Adult Aspirin Regimen) insulin glargine 100 unit/mL (3 32 unit subcut QDAY 02/05/21 Unkno wn History mL) subcutaneous pen (Lantus Solostar U-100 Insulin) lisinopril 30 mg tablet 30 mg PO DAILY 02/05/21 Unknown Hi story metformin 1,000 mg tablet 1,000 mg PO BID 02/05/21 Unknown H istory amlodipine 10 mg tablet 10 mg PO DAILY 04/26/23 Unknown Hi story pantoprazole 20 mg tablet,delayed 20 mg PO DAILY 04/26/23 Unknown H istory release rosuvastatin 20 mg tablet 20 mg PO QHS 04/26/23 Unknown Hist ory semaglutide 0.25 mg or 0.5 mg (2 0.25 mg subcut QWEEK 04/26/23 Unkn own History mg/3 mL) subcutaneous pen injector (Ozempic) tamsulosin 0.4 mg capsule 0.4 mg PO DAILY 04/26/23 Unknown H istory Allergy/AdvReac Type Severity Reaction Status Date / Time No Known Allergies Allergy Verified 03/18/25 07:41 Family History Grandfather Heart disease Surgical History Hx of cholecystectomy Hx of appendectomy Social History Smoking Status: Former smoker alcohol intake: never caffeine: Yes Type: coffee Number of servings: 1 what type of physical activity do you participate in: walking frequency: daily duration: 15-30 minutes/day ROS ROS ED ROS Narrative Constitutional: Denies fevers, chills, headaches, lightheadedness, dizziness Eyes: Denies change in vision double vision blurry vision Cardiovascular: Complains of palpitations as noted above denies chest pain Respiratory: Denies coughing wheezing shortness of breath Abdomen: Denies abdominal pain nausea vomit diarrhea : Denies urinary symptoms Neurological: Denies numbness, weakness, tingling Musculoskeletal: Denies back pain Skin: Denies rashes or lesions EXAM Physical Exam Narrative Exam Narrative: General: Patient is lying in bed rest comfortably do not appear to be in acute distress Head: Atraumatic, normocephalic Eyes: PERRL bilaterally, EOMI bilaterally, no conjunctival injection noted Neck: Soft, supple, trachea midline Cardiovascular: Regular rate and rhythm no murmurs's noted Respiratory: Clear to auscultation bilaterally Abdomen: Soft, nondistended, nontender to palpation Extremities: +5/5 strength noted in the bilateral upper and lower extremities, radial pulses +2/4 in the bilateral extremities, no pedal edema on exam Neurological: Patient following commands knew that he was at [facility] year is 2024 Skin: Warm, dry, intact no rashes or lesions noted Const Vital Signs: 03/18/25 07:40 03/18/25 07:40 03/18/25 07:49 Temperature 97.1 F L Temperature Source Temporal Pulse Rate 93 Respiratory Rate 14 Respiratory Eff (more content not included)... Normal [facility] Eosinophil percentageOrdered By: Marquis Leo on 03-18-2025 Eosinophils/100 WBC (Bld) 2.5 % 0-5 [facility] Erythrocyte distribution wid th ratioOrdered By: Marquis Leo on 03-18-2025 Erythrocyte distribution width (RBC) [Ratio] 13.8 % 11.6-14.6 [facility] Erythrocyte distribution wid th standard deviationOrdered By: Marquis Leo on 03-18-2025 Erythrocyte distribution width (RBC) [Ratio] 47.5 fl High 35.1-43.9 [facility] Free T3on 03-18-2025 Free T3 [Mass/Vol] 3.3 pg/mL Normal 2.18-3.98 [facility] Comment on above: Performed By: #### L 501.9520, L501.57554, L501.4021, L506.0400, L100.0100, L500.2500 #### [facility] Laboratory [address] [place], [place], [id number] Free [id number] By: Marquis addison on 03-18-2025 Free T3 [Mass/Vol] 3.3 pg/mL 2.18-3.98 [facility] Glomerular filtration rate ( GFR) estimation/1.73 sq m using serum, plasma, or whole bOrdered By: Marquis Leo on 03-18-2025 GFR/1.73 sq M.predicted among non-blacks MDRD (S/P/Bld) [Vol rate/Area] 47 mL/min/{1.73_m2} Low >60 [facility] Comment on above: mL/min/1.73m2 CKD-EP I Creatinine Equation (2020) Hematocrit Auto (Bld) [Volum e fraction]Ordered By: Marquis Leo on 03-18-2025 Hematocrit (Bld) [Volume fraction] 46.4 % 40-54 [facility] Hemoglobin measurementOrdere d By: Marquis Leo on 03-18-2025 Hemoglobin (Bld) [Mass/Vol] 15.7 g/dL 13.0-16.5 [facility] Immature granulocytes/100 WB C Auto (Bld)Ordered By: Marquis Leo on 03-18-2025 Immature granulocytes/100 WBC (Bld) 0.600 % 0.0-0.9 [facility] Comment on above: IG% - Immature Granu locytes (promyelocytes, myelocytes and metamyelocytes) > 1% indicates that a LEFT SHIFT is Present. L499.0042on 03-18-2025 Trop T High Sen 95 ng/L Invalid Interpretation Code <=22 [facility] Comment on above: Result Comment: Crit ical Result(s) Called at 1056: by: DENEEN MEZA TO DR LEO. ??Results read back by same. Performed By: #### L 499.0042 #### [facility] [address] [place], [address] L499.0043on 03-18-2025 Trop T High Sen Normal <=22 [facility] Comment on above: Result Comment: Canc elled via OM: Ordered Performed By: #### L 501.9520, L501.60206, L501.4021, L506.0400, L100.0100, L500.2500 #### [facility] Laboratory [address] [place], [address] L501.4021on 03-18-2025 Trop T High Sen 59 ng/L Invalid Interpretation Code <=22 [facility] Comment on above: Result Comment: Crit ical Result(s) Called at 0842: by: DENEEN MEZA TO [facility]. ??Results read back by same. Performed By: #### L 501.9520, L501.27931, L501.4021, L506.0400, L100.0100, L500.2500 #### [facility] Laboratory [address] [place], [place], [address] MCV (mean corpuscular volume ) determinationOrdered By: Marquis Leo on 03-18-2025 MCV (RBC) [Entitic vol] 93.5 fL 80-94 [facility] Mean corpuscular hemoglobin (MCH) determinationOrdered By: Marquis Leo on 03-18-2025 MCH (RBC) [Entitic mass] 31.7 pg 27.0-32.0 [facility] Mean corpuscular hemoglobin concentration (MCHC) determinationOrdered By: Marquis Leo on 03-18-2025 MCHC (RBC) [Mass/Vol] 33.8 g/dL 32-36 [facility] Mean platelet volume determi nationOrdered By: Marquis Leo on 03-18-2025 Platelet mean volume (Bld) [Entitic vol] 9.6 fL 6.2-12.0 [facility] Monocyte percentageOrdered B y: Marquis Leo on 03-18-2025 Monocytes/100 WBC (Bld) 8.1 % 0-10 [facility] Neutrophil percentageOrdered By: Marquis Leo on 03-18-2025 Neutrophils/100 WBC (Bld) 62.0 % 47-70 [facility] Nucleated red blood cell per centageOrdered By: Marquis Leo on 03-18-2025 Nucleated RBC/100 WBC (Bld) [Ratio] 0 % 0-5 [facility] Platelet countOrdered By: Leonardo Leo on 03-18-2025 Platelets (Bld) [#/Vol] 194 10*3/uL 150-450 [facility] Potassium measurement (mass/ volume)Ordered By: Marquis Leo on 03-18-2025 Potassium (Unsp spec) [Mass/Vol] 4.7 mmol/L 3.3-5.1 [facility] Comment on above: Hemolysis present, R esults could be affected. RBC Auto (Bld) [#/Vol]Ordere d By: Marquis Leo on 03-18-2025 RBC (Bld) [#/Vol] 4.96 10*6/uL 4.6-6.2 [facility] Serum creatinine measurement (mass/volume)Ordered By: Marquis Leo on 03-18-2025 Creatinine [Mass/Vol] 1.61 mg/dL High 0.70-1.20 [facility] Serum glucose measurement (m ass/volume)Ordered By: Marquis Leo on 03-18-2025 Glucose [Mass/Vol] 169 mg/dL High 70-99 [facility] Serum or plasma calcium anthony urement (mass/volume)Ordered By: Marquis Leo on 03-18-2025 Calcium [Mass/Vol] 9.3 mg/dL 7.6-11.0 [facility] Serum or plasma urea nitroge n measurement (mass/volume)Ordered By: Marquis Leo on 03-18-2025 Urea nitrogen [Mass/Vol] 26 mg/dL High 4-19 [facility] Sodium levelOrdered By: Shayla Leo on 03-18-2025 Sodium [Moles/Vol] 139 mmol/L 133-145 [facility] T4 Free Directon 03-18-2025 T4 FREE DIRECT 1.00 ng/dL Normal 0.76-1.46 [facility] Comment on above: Performed By: #### L 501.9520, L501.18144, L501.4021, L506.0400, L100.0100, L500.2500 #### [facility] Laboratory [address] [place], [place], [id number] T4 freeOrdered By: Marquis adidson on 03-18-2025 Free T4 [Mass/Vol] 1.00 ng/dL 0.76-1.46 [facility] TSH DL <= 0.005 mIU/L QnOrde red By: Marquis Leo on 03-18-2025 TSH Qn 3.060 uIU/mL 0.300-4.200 [facility] Thyroid Stim Hormone (TSH)on 03-18-2025 TSH 3.060 uIU/mL Normal 0.300-4.200 [facility] Comment on above: Performed By: #### L 501.9520, L501.12405, L501.4021, L506.0400, L100.0100, L500.2500 #### [facility] [address] [place], [place], [id number] Troponin T.cardiac [Mass/vol ume] in Serum or Plasma by High sensitivity methodOrdered By: Marquis Leo on 03-18-2025 Troponin T.cardiac High sensitivity method [Mass/Vol] 95 ng/L High <22 [facility] Comment on above: Critical Result(s) C alled at 1056: by: DNEEEN MEZA TO DR LEO. Results read back by same. Troponin T.cardiac High sensitivity method [Mass/Vol] 59 ng/L High <22 [facility] Comment on above: Critical Result(s) C alled at 0842: by: DENEEN MEZA TO [facility]. Results read back by [facility]. White blood cell (WBC) count Ordered By: Marquis Leo on 03-18-2025 WBC (Bld) [#/Vol] 12.2 10*3/uL High 4.4-11.0 [facility] Absolute lymphocyte countOrd ered By: Jose Saul on 11-26-2024 Lymphocytes Auto (Unsp spec) [#/Vol] 2.61 10*3/uL 0.83-4.51 [facility] Absolute neutrophil countOrd ered By: Jose Saul on 11-26-2024 Neutrophils (Bld) [#/Vol] 3.8 10*3/uL 2.0-7.7 [facility] Albumin to globulin ratioOrd ered By: Jose Saul on 11-26-2024 Albumin/Globulin [Mass ratio] 1.0 {ratio} 0.9-2.4 [facility] Automated lymphocyte count a s percentage of total leukocytesOrdered By: Jose Saul on 11-26-2024 Lymphocytes/100 WBC Auto (Unsp spec) 34.6 % - [facility] Basophil percentageOrdered B y: Jose Saul on 11-26-2024 Basophils/100 WBC (Bld) 0.9 % 0-1 [facility] Bilirubin, totalOrdered By: Jose Saul on 11-26-2024 Bilirubin [Mass/Vol] 0.50 mg/dL 0.20-1.00 [facility] Comment on above: For patients on eltr ombopag therapy, use of Dimension [place] TBIL is not recommended. Blood urea nitrogen (BUN)/cr eatinine ratioOrdered By: Jose Saul on 11-26-2024 Urea nitrogen/Creatinine [Mass ratio] 15.0 mg/mg 10- [facility] CBC W/Diff, Automatedon 11-04 Absolute Lymph 2.61 X10 3/uL Normal 0.83-4.51 [facility] Comment on above: Performed By: #### L 100.0100, L501.9520, L501.35451, L500.4050, L506.0400, L506.1000, L500.4100 ####[facility] [address] [place], [place], [id number] Absolute Neut 3.8 X10 3/uL Normal 2.0-7.7 [facility] Comment on above: Performed By: #### L 100.0100, L501.9520, L501.61745, L500.4050, L506.0400, L506.1000, L500.4100 ####[facility] [address] [place], [address] Basophils/100 WBC (Bld) 0.9 % Normal 0-1 [facility] Comment on above: Performed By: #### L 100.0100, L501.9520, L501.53669, L500.4050, L506.0400, L506.1000, L500.4100 ####[facility] [address] [place], [address] Eosinophils/100 WBC (Bld) 5.6 % High 0-5 [facility] Comment on above: Performed By: #### L 100.0100, L501.9520, L501.82274, L500.4050, L506.0400, L506.1000, L500.4100 ####[facility] [address] [place], [address] Erythrocyte distribution width (RBC) [Ratio] 12.8 % Normal 11.6-14.6 [facility] Comment on above: Performed By: #### L 100.0100, L501.9520, L501.94726, L500.4050, L506.0400, L506.1000, L500.4100 ####[facility] [address] [place], [address] Hematocrit (Bld) [Volume fraction] 49.3 % Normal 40-54 [facility] Comment on above: Performed By: #### L 100.0100, L501.9520, L501.38178, L500.4050, L506.0400, L506.1000, L500.4100 ####[facility] [address] [place], [address] Hemoglobin (Bld) [Mass/Vol] 16.3 g/dL Normal 13.0-16.5 [facility] Comment on above: Performed By: #### L 100.0100, L501.9520, L501.71817, L500.4050, L506.0400, L506.1000, L500.4100 ####[facility] [place] [address] [place], [address] IG% 0.300 Normal 0.0-0.9 [facility] Comment on above: Result Comment: IG% - Immature Granulocytes (promyelocytes, myelocytes and metamyelocytes) > 1% indicates that a LEFT SHIFT is Present. Performed By: #### L 100.0100, L501.9520, L501.66347, L500.4050, L506.0400, L506.1000, L500.4100 ####[facility] [address] [place], [address] Lymphocytes/100 WBC (Bld) 34.6 % Normal 19-41 [facility] Comment on above: Performed By: #### L 100.0100, L501.9520, L501.27876, L500.4050, L506.0400, L506.1000, L500.4100 ####[facility] [address] [place], [address] MCH (RBC) [Entitic mass] 31.3 pg Normal 27.0-32.0 [facility] Comment on above: Performed By: #### L 100.0100, L501.9520, L501.52102, L500.4050, L506.0400, L506.1000, L500.4100 ####[facility] [address] [place], [address] MCHC (RBC) [Mass/Vol] 33.1 g/dL Normal 32-36 [facility] Comment on above: Performed By: #### L 100.0100, L501.9520, L501.80115, L500.4050, L506.0400, L506.1000, L500.4100 ####[facility] [address] [place], [address] MCV (RBC) [Entitic vol] 94.6 fL High 80-94 [facility] Comment on above: Performed By: #### L 100.0100, L501.9520, L501.27815, L500.4050, L506.0400, L506.1000, L500.4100 ####[facility] [address] [place], [address] Monocytes/100 WBC (Bld) 7.8 % Normal 0-10 [facility] Comment on above: Performed By: #### L 100.0100, L501.9520, L501.17404, L500.4050, L506.0400, L506.1000, L500.4100 ####[facility] [address] [place], [address] Neutrophils/100 WBC (Bld) 50.8 % Normal 47-70 [facility] Comment on above: Performed By: #### L 100.0100, L501.9520, L501.90571, L500.4050, L506.0400, L506.1000, L500.4100 ####[facility] [address] [place], [address] Nucleated RBC (Bld) [#/Vol] 0 10*3/uL Normal 0-5 [facility] Comment on above: Performed By: #### L 100.0100, L501.9520, L501.54275, L500.4050, L506.0400, L506.1000, L500.4100 ####[facility] [address] [place], [address] Platelet mean volume (Bld) [Entitic vol] 9.9 fL Normal 6.2-12.0 [facility] Comment on above: Performed By: #### L 100.0100, L501.9520, L501.68824, L500.4050, L506.0400, L506.1000, L500.4100 ####[facility] [address] [place], [address] Platelets (Bld) [#/Vol] 203 10*3/uL Normal 150-450 [facility] Comment on above: Performed By: #### L 100.0100, L501.9520, L501.71864, L500.4050, L506.0400, L506.1000, L500.4100 ####[facility] [address] [place], [address] RBC (Bld) [#/Vol] 5.21 10*6/uL Normal 4.6-6.2 [facility] Comment on above: Performed By: #### L 100.0100, L501.9520, L501.02585, L500.4050, L506.0400, L506.1000, L500.4100 ####[facility] [address] [place], [address] RDW SD 44.5 fl High 35.1-43.9 [facility] Comment on above: Performed By: #### L 100.0100, L501.9520, L501.84287, L500.4050, L506.0400, L506.1000, L500.4100 ####[facility] [address] [place], [address] WBC (Bld) [#/Vol] 7.5 10*3/uL Normal 4.4-11.0 [facility] Comment on above: Performed By: #### L 100.0100, L501.9520, L501.59067, L500.4050, L506.0400, L506.1000, L500.4100 ####[facility] [address] [place], [address] Carbon dioxide measurementOr dered By: Jose Saul on 02-24-2025 CO2 [Moles/Vol] 25.0 mmol/L 21.0-32.0 [facility] Chloride measurementOrdered By: Jose Saul on 11-26-2024 Chloride [Moles/Vol] 104 mmol/L 98-107 [facility] [place] Comprehensive Metabolic Prof ilon 11-26-2024 Albumin [Mass/Vol] 3.9 g/dL Normal 3.2-5.0 [facility] Comment on above: Performed By: #### L 100.0100, L501.9520, L501.94318, L500.4050, L506.0400, L506.1000, L500.4100 ####[facility] [address] [place], [address] Albumin/Globulin [Mass ratio] 1.0 {ratio} Normal 0.9-2.4 [facility] Comment on above: Performed By: #### L 100.0100, L501.9520, L501.29481, L500.4050, L506.0400, L506.1000, L500.4100 ####[facility] [address] [place], [address] ALK P 93 U/L Normal 45-117 [facility] Comment on above: Performed By: #### L 100.0100, L501.9520, L501.06447, L500.4050, L506.0400, L506.1000, L500.4100 ####[facility] [address] [place], [address] ALT [Catalytic activity/Vol] 57 U/L Normal 16-61 [facility] Comment on above: Performed By: #### L 100.0100, L501.9520, L501.75318, L500.4050, L506.0400, L506.1000, L500.4100 ####[facility] [address] [place], [address] AST [Catalytic activity/Vol] 20 U/L Normal 15-37 [facility] Comment on above: Performed By: #### L 100.0100, L501.9520, L501.64026, L500.4050, L506.0400, L506.1000, L500.4100 ####[facility] [address] [place], [address] Bilirubin [Mass/Vol] 0.50 mg/dL Normal 0.20-1.00 [facility] [place] Comment on above: Result Comment: For patients on eltrombopag therapy, use of Dimension [place] TBIL is not recommended. Performed By: #### L 100.0100, L501.9520, L501.04603, L500.4050, L506.0400, L506.1000, L500.4100 ####[facility] [address] [place], [address] BUN/CRE 15.0 RATIO Normal 10-20 [facility] Comment on above: Performed By: #### L 100.0100, L501.9520, L501.14169, L500.4050, L506.0400, L506.1000, L500.4100 ####[facility] [address] [place], [address] CA,Total 9.3 mg/dL Normal 8.5-10.1 [facility] Comment on above: Performed By: #### L 100.0100, L501.9520, L501.01531, L500.4050, L506.0400, L506.1000, L500.4100 ####[facility] [address] [place], [address] Chloride [Moles/Vol] 104 mmol/L Normal 98-107 [facility] [place] Comment on above: Performed By: #### L 100.0100, L501.9520, L501.04345, L500.4050, L506.0400, L506.1000, L500.4100 ####[facility] [address] [place], [address] CO2 [Moles/Vol] 25.0 mmol/L Normal 21.0-32.0 [facility] Comment on above: Performed By: #### L 100.0100, L501.9520, L501.98262, L500.4050, L506.0400, L506.1000, L500.4100 ####[facility] [address] [place], [address] Creatinine [Mass/Vol] 1.07 mg/dL Normal 0.70-1.30 [facility] Comment on above: Result Comment: The validity of the calculated GFR GFRAA in patients over 70 years has not been determined. Clinical correlation is essential. Performed By: #### L 100.0100, L501.9520, L501.56384, L500.4050, L506.0400, L506.1000, L500.4100 ####[facility] [address] [place], [address] EST GFR - AA 89 mL/min Normal >60 [facility] Comment on above: Result Comment: Afri can S[place] GFR Calc Performed By: #### L 100.0100, L501.9520, L501.75824, L500.4050, L506.0400, L506.1000, L500.4100 ####[facility] [address] [place], [address] GAP 7 Normal 5-15 [facility] Comment on above: Performed By: #### L 100.0100, L501.9520, L501.65584, L500.4050, L506.0400, L506.1000, L500.4100 ####[facility] [address] [place], [address] GFR/1.73 sq M.predicted among non-blacks MDRD (S/P/Bld) [Vol rate/Area] 74 mL/min/{1.73_m2} Normal >60 [facility] Comment on above: Result Comment: Non- GFR Calc Performed By: #### L 100.0100, L501.9520, L501.73230, L500.4050, L506.0400, L506.1000, L500.4100 ####[facility] [address] [place], [address] Globulin (S) [Mass/Vol] 4.1 g/dL Normal 2.2-4.2 [facility] Comment on above: Performed By: #### L 100.0100, L501.9520, L501.22632, L500.4050, L506.0400, L506.1000, L500.4100 ####[facility] [address] [place], [address] Glucose [Mass/Vol] 93 mg/dL Normal 74-106 [facility] Comment on above: Performed By: #### L 100.0100, L501.9520, L501.90514, L500.4050, L506.0400, L506.1000, L500.4100 ####[facility] [address] [place], [address] Potassium [Moles/Vol] 4.5 mmol/L Normal 3.5-5.1 [facility] Comment on above: Performed By: #### L 100.0100, L501.9520, L501.36147, L500.4050, L506.0400, L506.1000, L500.4100 ####[facility] [address] [place], [address] Sodium [Moles/Vol] 136 mmol/L Normal 136-145 [facility] Comment on above: Performed By: #### L 100.0100, L501.9520, L501.16647, L500.4050, L506.0400, L506.1000, L500.4100 ####[facility] [address] [place], [place], [id number] T PROT 8.0 g/dL Normal 6.4-8.2 [facility] Comment on above: Performed By: #### L 100.0100, L501.9520, L501.07515, L500.4050, L506.0400, L506.1000, L500.4100 ####[facility] [address] [place], [address] Urea nitrogen [Mass/Vol] 16 mg/dL Normal 7-18 [facility] Comment on above: Performed By: #### L 100.0100, L501.9520, L501.23913, L500.4050, L506.0400, L506.1000, L500.4100 ####[facility] [address] [facility] [address] [place], [place], [id number] Direct serum free thyroxine (FT4) measurementOrdered By: Jose Saul on 11-26-2024 Free T4 [Mass/Vol] 0.84 ng/dL 0.76-1.46 [facility] Eosinophil percentageOrdered By: Jose Saul on 11-26-2024 Eosinophils/100 WBC (Bld) 5.6 % High 0-5 [facility] Erythrocyte distribution wid th ratioOrdered By: Jose Saul on 11-26-2024 Erythrocyte distribution width (RBC) [Ratio] 12.8 % 11.6-14.6 [facility] Erythrocyte distribution wid th standard deviationOrdered By: Jose Saul on 11-26-2024 Erythrocyte distribution width (RBC) [Ratio] 44.5 fl High 35.1-43.9 [facility] Free T3on 11-26-2024 Free T3 [Mass/Vol] 3.0 pg/mL Normal 2.18-3.98 [facility] Comment on above: Performed By: #### L 100.0100, L501.9520, L501.71338, L500.4050, L506.0400, L506.1000, L500.4100 ####[facility] [address] [place], [address] Free E5Onxhkys By: Nick Saul on 11-26-2024 Free T3 [Mass/Vol] 3.0 pg/mL 2.18-3.98 [facility] Glomerular filtration rate ( GFR) estimationOrdered By: Jose Saul on 11-26-2024 GFR/1.73 sq M.predicted among non-blacks MDRD (S/P/Bld) [Vol rate/Area] 74 mL/min/{1.73_m2} >60 [facility] Comment on above: Non- GFR Calc Glucose measurementOrdered B y: Jose Saul on 11-26-2024 Glucose [Mass/Vol] 93 mg/dL 74-106 [facility] Hematocrit Auto (Bld) [Volum e fraction]Ordered By: Jose Saul on 11-26-2024 Hematocrit (Bld) [Volume fraction] 49.3 % 40-54 [facility] Hemoglobin measurementOrdere d By: Jose Saul on 11-26-2024 Hemoglobin (Bld) [Mass/Vol] 16.3 g/dL 13.0-16.5 [facility] High density lipoprotein (HD L) measurementOrdered By: Jose Saul on 11-26-2024 Cholesterol in HDL [Mass/Vol] 61 mg/dL >40 [facility] Comment on above: The drugs N-Acetylcy steine and Metamizole may falsely depress this assay. Reference Range HDL <40 mg/dL Low HDL Cholesterol HDL >or= 60 mg/dL High HDL Cholesterol Immature granulocytes/100 WB C Auto (Bld)Ordered By: Jose Saul on 11-26-2024 Immature granulocytes/100 WBC (Bld) 0.300 % 0.0-0.9 [facility] Comment on above: IG% - Immature Granu locytes (promyelocytes, myelocytes and metamyelocytes) > 1% indicates that a LEFT SHIFT is Present. Laboratory - Chemistry and C hemistry - challengeOrdered By: Jose Saul on 11-26-2024 AST [Catalytic activity/Vol] 20 U/L 15-37 [facility] Lipid Profileon 11-26-2024 Cholesterol [Mass/Vol] 115 mg/dL Normal 200 [facility] Comment on above: Result Comment: <200 mg/dL Desirable 200-240 mg/dL Borderline >240 mg/dL High Risk Performed By: #### L 100.0100, L501.9520, L501.96113, L500.4050, L506.0400, L506.1000, L500.4100 ####[facility] [address] [place], [address] Cholesterol in HDL [Mass/Vol] 61 mg/dL Normal [facility] Comment on above: Result Comment: The drugs N-Acetylcysteine and Metamizole may falsely depress this assay. Reference Range HDL <40 mg/dL Low HDL Cholesterol HDL >or= 60 mg/dL High HDL Cholesterol Performed By: #### L 100.0100, L501.9520, L501.40157, L500.4050, L506.0400, L506.1000, L500.4100 ####[facility] [address] [place], [address] Cholesterol in LDL [Mass/Vol] 44 mg/dL Normal 0-130 [facility] Comment on above: Performed By: #### L 100.0100, L501.9520, L501.69733, L500.4050, L506.0400, L506.1000, L500.4100 ####[facility] [address] [place], [address] Cholesterol in VLDL [Mass/Vol] 10 mg/dL Normal 5-40 [facility] Comment on above: Performed By: #### L 100.0100, L501.9520, L501.42078, L500.4050, L506.0400, L506.1000, L500.4100 ####[facility] [address] [place], [address] Triglyceride [Mass/Vol] 52 mg/dL Normal [facility] Comment on above: Result Comment: The drugs N-Acetylcysteine and Metamizole may falsely depress this assay. Serum Triglycerides Reference Interval Normal <150 mg/dL Borderline high 150 - 199 mg/dL High 200 - 499 mg/dL Very High > or = 500 mg/dL Performed By: #### L 100.0100, L501.9520, L501.64397, L500.4050, L506.0400, L506.1000, L500.4100 ####[facility] [address] [place], [address] Low density lipoprotein (LDL ) cholesterol measurementOrdered By: Jose Saul on 11-26-2024 Cholesterol in LDL [Mass/Vol] 44 mg/dL 0-130 [facility] MCV (mean corpuscular volume ) determinationOrdered By: Jose Saul on 11-26-2024 MCV (RBC) [Entitic vol] 94.6 fL High 80-94 [facility] Mean corpuscular hemoglobin (MCH) determinationOrdered By: Jose Saul on 11-26-2024 MCH (RBC) [Entitic mass] 31.3 pg 27.0-32.0 [facility] Mean corpuscular hemoglobin concentration (MCHC) determinationOrdered By: Jose Saul on 11-26-2024 MCHC (RBC) [Mass/Vol] 33.1 g/dL 32-36 [facility] Mean platelet volume determi nationOrdered By: Jose Saul on 11-26-2024 Platelet mean volume (Bld) [Entitic vol] 9.9 fL 6.2-12.0 [facility] Monocyte percentageOrdered B y: Jose Saul on 11-26-2024 Monocytes/100 WBC (Bld) 7.8 % 0-10 [facility] Neutrophil percentageOrdered By: Jose Saul on 11-26-2024 Neutrophils/100 WBC (Bld) 50.8 % 47-70 [facility] Nucleated red blood cell per centageOrdered By: Jose Saul on 11-26-2024 Nucleated RBC/100 WBC (Bld) [Ratio] 0 % 0-5 [facility] Platelet countOrdered By: Birdie Saul on 11-26-2024 Platelets (Bld) [#/Vol] 203 10*3/uL 150-450 [facility] Potassium measurementOrdered By: Jose Saul on 11-26-2024 Potassium [Moles/Vol] 4.5 mmol/L 3.5-5.1 [facility] RBC Auto (Bld) [#/Vol]Ordere d By: Jose Saul on 11-26-2024 RBC (Bld) [#/Vol] 5.21 10*6/uL 4.6-6.2 [facility] Serum anion gap measurementO rdered By: Jose Salu on 11-26-2024 Anion gap [Moles/Vol] 7 mmol/L 5-15 [facility] Serum globulin measurementOr dered By: Jose Saul on 11-26-2024 Globulin (S) [Mass/Vol] 4.1 g/dL 2.2-4.2 [facility] Serum or plasma alanine eller otransferase (ALT) measurementOrdered By: Jose Saul on 11-26-2024 ALT [Catalytic activity/Vol] 57 U/L 16-61 [facility] Serum or plasma albumin anthony urement (mass/volume)Ordered By: Jose Saul on 11-26-2024 Albumin [Mass/Vol] 3.9 g/dL 3.2-5.0 [facility] Serum or plasma alkaline silverio sphatase measurementOrdered By: Jose Saul on 11-26-2024 ALP [Catalytic activity/Vol] 93 U/L 45-117 [facility] Serum or plasma calcium anthony urement (mass/volume)Ordered By: Jose Saul on 11-26-2024 Calcium [Mass/Vol] 9.3 mg/dL 8.5-10.1 [facility] Serum or plasma cholesterol measurement (mass/volume)Ordered By: Jose Saul on 11-26-2024 Cholesterol [Mass/Vol] 115 mg/dL <200 [facility] Comment on above: <200 mg/dL Desirable 200-240 mg/dL Borderline >240 mg/dL High Risk Serum or plasma creatinine m easurement (mass/volume)Ordered By: Jose Saul on 11-26-2024 Creatinine [Mass/Vol] 1.07 mg/dL 0.70-1.30 [facility] Comment on above: The validity of the calculated GFR & GFRAA in patients over 70 years has not been determined. Clinical correlation is essential. Serum or plasma thyroid stim ulating hormone (TSH) measurement (units/volume)Ordered By: Jose Saul on 11-26-2024 TSH Qn 1.220 uIU/mL 0.358-3.740 [facility] Serum or plasma urea nitroge n measurement (mass/volume)Ordered By: Jose Saul on 11-26-2024 Urea nitrogen [Mass/Vol] 16 mg/dL 7-18 [facility] Sodium levelOrdered By: Ila Saul on 11-26-2024 Sodium [Moles/Vol] 136 mmol/L 136-145 [facility] T4 Free Directon 11-26-2024 T4 FREE DIRECT 0.84 ng/dL Normal 0.76-1.46 [facility] Comment on above: Performed By: #### L 501.9520, L501.41676, L501.4021, L506.0400, L100.0100, L500.2500 #### [facility] Laboratory [address] [place], [address] Thyroid Stim Hormone (TSH)on 11-26-2024 TSH 1.220 uIU/mL Normal 0.358-3.740 [facility] Comment on above: Performed By: #### L 100.0100, L501.9520, L501.66010, L500.4050, L506.0400, L506.1000, L500.4100 ####[facility] [address] [place], [address] Total proteinOrdered By: Betsy Saul on 11-26-2024 Protein [Mass/Vol] 8.0 g/dL 6.4-8.2 [facility] Triglycerides measurementOrd ered By: Jose Saul on 11-26-2024 Triglyceride [Mass/Vol] 52 mg/dL <199 [facility] Comment on above: The drugs N-Acetylcy steine and Metamizole may falsely depress this assay.Serum Triglycerides Reference Interval Normal <150 mg/dL Borderline high 150 - 199 mg/dL High 200 - 499 mg/dL Very High > or = 500 mg/dL Very low density lipoprotein (VLDL) cholesterol measurementOrdered By: Jose Saul on 11-26-2024 Very low density lipoprotein (VLDL) cholesterol measurement 10 mg/dL 5-40 [facility] Vitamin D,25 Hydroxyon 11-26 Vitamin D 25-OH 63.0 ng/mL Normal [facility] Comment on above: Result Comment: Kaley min D 25(OH) Status Range Deficiency <20 ng/mL (50nmol/L) Insufficiency 20 - 30 ng/mL (50 - 75 nmol/L) Sufficiency 30 - 100 ng/mL (75 - 250 nmol/L) Toxicity >100 ng/mL (>250 nmol/L) Performed By: #### L 100.0100, L501.9520, L501.88617, L500.4050, L506.0400, L506.1000, L500.4100 ####[facility] [address] [place], [address] White blood cell (WBC) count Ordered By: Jose Saul on 11-26-2024 WBC (Bld) [#/Vol] 7.5 10*3/uL 4.4-11.0 [facility] 12 Lead EKGon 11-01-2024 12 Lead EKG [facility] Cardiovascular Services [address] [place] [address] 12 Lead EKG 11/01/24 1420 MR#: [id number] Acct: [id number] Name: ALINE DENNIS Triston Rep #: [id number] : 1960 64 From: Geovani Ahn MD Attending Dr: Status: DEP ER Ordering Dr: Jose Mariee MD Date: 11/01/24 Location: ED Sex: M C Admitted: Test Reason : Blood Pressure : */* mmHG Vent. Rate : 96 BPM Atrial Rate : 96 BPM P-R Int : 164 ms QRS Dur : 90 ms QT Int : 342 ms P-R-T Axes : 54 -24 47 degrees QTcB Int : 432 ms Normal sinus rhythm Normal ECG Confirmed by GEOVANI AHN MD ([id number]), NICK Campos ([id number]) on 11/05/2024 6:03:50 AM Referred By: RADHA Confirmed By: GEOVANI AHN MD 11/05/24602 Date Geovani Ahn MD CC: Dr. Jose Saul MD; Dr. Jose Mariee MD Signed [facility] 12 Lead EKG [facility] Cardi[facility] Services [address] [place] [address] 12 Lead EKG 11/01/24 1355 MR#: [id number] Acct: [id number] Name: ALINE DENNIS Rep #: [id number] : 1960 64 From: Geovani Ahn MD Attending Dr: Status: DEP ER Ordering Dr: Jose Mariee MD Date: 11/01/24 Location: ED Sex: M C Admitted: Test Reason : PALPITATIONS Blood Pressure : */* mmHG Vent. Rate : 204 BPM Atrial Rate : * BPM P-R Int : * ms QRS Dur : 114 ms QT Int : 234 ms P-R-T Axes : * -48 69 degrees QTcB Int : 431 ms Critical Test Result: High HR Supraventricular tachycardia with Premature ventricular complexes or Fusion complexes Left axis deviation Abnormal ECG Confirmed by GEOVANI AHN MD ([id number]), NICK Campos ([id number]) on 11/05/2024 6:03:33 AM Referred By: Confirmed By: GEOVANI AHN MD 11/05/24602 Date Geovani Ahn MD CC: Dr. Jose Saul MD; Dr. Jose Mariee MD Signed [facility] Basic Metabolic Profile (BMP )on 11-01-2024 BUN/CRE 15.3 RATIO Normal 10-20 [facility] Comment on above: Order Comment: 'TROP ' Serial specimen #1, #2 or #3: 1 Performed By: #### L 100.0100, L501.4020, L500.2500, L501.9520 ####[facility] [address] [place], [address] CA,Total 10.0 mg/dL Normal 8.5-10.1 [facility] Comment on above: Order Comment: 'TROP ' Serial specimen #1, #2 or #3: 1 Performed By: #### L 100.0100, L501.4020, L500.2500, L501.9520 ####[facility] [address] [place], [address] Chloride [Moles/Vol] 101 mmol/L Normal 98-107 [facility] Comment on above: Order Comment: 'TROP ' Serial specimen #1, #2 or #3: 1 Performed By: #### L 100.0100, L501.4020, L500.2500, L501.9520 ####[facility] [address] [place], [address] CO2 [Moles/Vol] 25.0 mmol/L Normal 21.0-32.0 [facility] Comment on above: Order Comment: 'TROP ' Serial specimen #1, #2 or #3: 1 Performed By: #### L 100.0100, L501.4020, L500.2500, L501.9520 ####[facility] [address] [place], [address] Creatinine [Mass/Vol] 1.57 mg/dL High 0.70-1.30 [facility] Comment on above: Order Comment: 'TROP ' Serial specimen #1, #2 or #3: 1 Result Comment: The validity of the calculated GFR GFRAA in patients over 70 years has not been determined. Clinical correlation is essential. Performed By: #### L 100.0100, L501.4020, L500.2500, L501.9520 ####[facility] [address] [place], [address] ECRCL 55.54 ml/min Normal [facility] Comment on above: Order Comment: 'TROP ' Serial specimen #1, #2 or #3: 1 Performed By: #### L 100.0100, L501.4020, L500.2500, L501.9520 ####[facility] [address] [place], [address] EST GFR - AA 57 mL/min Low >60 [facility] Comment on above: Order Comment: 'TROP ' Serial specimen #1, #2 or #3: 1 Result Comment: Afri can Sammarinese GFR Calc Performed By: #### L 100.0100, L501.4020, L500.2500, L501.9520 ####[facility] [address] [place], [address] GAP 10 Normal 5-15 [facility] Comment on above: Order Comment: 'TROP ' Serial specimen #1, #2 or #3: 1 Performed By: #### L 100.0100, L501.4020, L500.2500, L501.9520 ####[facility] [address] [place], [address] GFR/1.73 sq M.predicted among non-blacks MDRD (S/P/Bld) [Vol rate/Area] 47 mL/min/{1.73_m2} Low >60 [facility] Comment on above: Order Comment: 'TROP ' Serial specimen #1, #2 or #3: 1 Result Comment: Non- GFR Calc Performed By: #### L 100.0100, L501.4020, L500.2500, L501.9520 ####[facility] [address] [place], [address] Glucose [Mass/Vol] 168 mg/dL High 74-106 [facility] Comment on above: Order Comment: 'TROP ' Serial specimen #1, #2 or #3: 1 Result Comment: Fast ing Glucose result greater than or equal to 126 mg/dL suggests DIABETES MELLITUS per A.D.A. criteria. Performed By: #### L 100.0100, L501.4020, L500.2500, L501.9520 ####[facility] [address] [place], [address] Potassium [Moles/Vol] 4.6 mmol/L Normal 3.5-5.1 [facility] Comment on above: Order Comment: 'TROP ' Serial specimen #1, #2 or #3: 1 Performed By: #### L 100.0100, L501.4020, L500.2500, L501.9520 ####[facility] [address] [place], [address] Sodium [Moles/Vol] 135 mmol/L Low 136-145 [facility] Comment on above: Order Comment: 'TROP ' Serial specimen #1, #2 or #3: 1 Performed By: #### L 100.0100, L501.4020, L500.2500, L501.9520 ####[facility] [address] [place], [address] Urea nitrogen [Mass/Vol] 24 mg/dL High 7-18 [facility] Comment on above: Order Comment: 'TROP ' Serial specimen #1, #2 or #3: 1 Performed By: #### L 100.0100, L501.4020, L500.2500, L501.9520 ####[facility] [address] [place], [address] CBC W/Diff, Automatedon -3 0-2024 Absolute Lymph 4.56 X10 3/uL High 0.83-4.51 [facility] Comment on above: Performed By: #### L 100.0100, L501.4020, L500.2500, L501.9520 ####[facility] [address] [place], [address] Absolute Neut 7.9 X10 3/uL High 2.0-7.7 [facility] Comment on above: Performed By: #### L 100.0100, L501.4020, L500.2500, L501.9520 ####[facility] [address] [place], [address] Basophils/100 WBC (Bld) 0.6 % Normal 0-1 [facility] Comment on above: Performed By: #### L 100.0100, L501.4020, L500.2500, L501.9520 ####[facility] [address] [place], [address] Eosinophils/100 WBC (Bld) 2.8 % Normal 0-5 [facility] Comment on above: Performed By: #### L 100.0100, L501.4020, L500.2500, L501.9520 ####[facility] [address] [place], [address] Erythrocyte distribution width (RBC) [Ratio] 12.6 % Normal 11.6-14.6 [facility] Comment on above: Performed By: #### L 100.0100, L501.4020, L500.2500, L501.9520 ####[facility] [address] [place], [address] Hematocrit (Bld) [Volume fraction] 49.0 % Normal 40-54 [facility] Comment on above: Performed By: #### L 100.0100, L501.4020, L500.2500, L501.9520 ####[facility] [address] [place], [address] Hemoglobin (Bld) [Mass/Vol] 17.0 g/dL High 13.0-16.5 [facility] Comment on above: Performed By: #### L 100.0100, L501.4020, L500.2500, L501.9520 ####[facility] [address] [place], [address] IG% 0.400 Normal 0.0-0.9 [facility] Comment on above: Result Comment: IG% - Immature Granulocytes (promyelocytes, myelocytes and metamyelocytes) > 1% indicates that a LEFT SHIFT is Present. Performed By: #### L 100.0100, L501.4020, L500.2500, L501.9520 ####[facility] [address] [place], [address] Lymphocytes/100 WBC (Bld) 32.2 % Normal 19-41 [facility] Comment on above: Performed By: #### L 100.0100, L501.4020, L500.2500, L501.9520 ####[facility] [address] [place], [address] MCH (RBC) [Entitic mass] 31.7 pg Normal 27.0-32.0 [facility] Comment on above: Performed By: #### L 100.0100, L501.4020, L500.2500, L501.9520 ####[facility] [address] [place], [address] MCHC (RBC) [Mass/Vol] 34.7 g/dL Normal 32-36 [facility] Comment on above: Performed By: #### L 100.0100, L501.4020, L500.2500, L501.9520 ####[facility] [address] [place], [address] MCV (RBC) [Entitic vol] 91.4 fL Normal 80-94 [facility] Comment on above: Performed By: #### L 100.0100, L501.4020, L500.2500, L501.9520 ####[facility] [address] [place], [address] Monocytes/100 WBC (Bld) 8.3 % Normal 0-10 [facility] Comment on above: Performed By: #### L 100.0100, L501.4020, L500.2500, L501.9520 ####[facility] [address] [place], [address] Neutrophils/100 WBC (Bld) 55.7 % Normal 47-70 [facility] Comment on above: Performed By: #### L 100.0100, L501.4020, L500.2500, L501.9520 ####[facility] [address] [place], [address] Nucleated RBC (Bld) [#/Vol] 0 10*3/uL Normal 0-5 [facility] Comment on above: Performed By: #### L 100.0100, L501.4020, L500.2500, L501.9520 ####[facility] [address] [place], [address] Platelet mean volume (Bld) [Entitic vol] 9.5 fL Normal 6.2-12.0 [facility] Comment on above: Performed By: #### L 100.0100, L501.4020, L500.2500, L501.9520 ####[facility] [address] [place], [address] Platelets (Bld) [#/Vol] 252 10*3/uL Normal 150-450 [facility] Comment on above: Performed By: #### L 100.0100, L501.4020, L500.2500, L501.9520 ####[facility] [address] [place], [address] RBC (Bld) [#/Vol] 5.36 10*6/uL Normal 4.6-6.2 [facility] Comment on above: Performed By: #### L 100.0100, L501.4020, L500.2500, L501.9520 ####[facility] [address] [place], [address] RDW SD 41.9 fl Normal 35.1-43.9 [facility] Comment on above: Performed By: #### L 100.0100, L501.4020, L500.2500, L501.9520 ####[facility] [address] [place], [address] WBC (Bld) [#/Vol] 14.2 10*3/uL High 4.4-11.0 [facility] Comment on above: Performed By: #### L 100.0100, L501.4020, L500.2500, L501.9520 ####[facility] [address] [place], [address] Chest 1 View (Portable)on Chest 1 View (Portable) [facility] Imaging Services [address] [place] [address] Chest 1 View (Portable) MR#: [id number] Acct: [id number] Name: ALINE DENNIS Rep #: [id number] : 1960 M 64 From: Gianfranco Orosco PCP: Dr. Jose Saul MD Status: [facility] ER Study: Chest 1 View (Portable) Date of Exam: 11/01/24 Exam# [id number] Ordering Dr: Jose Mariee MD PROCEDURE: CHEST 1 VIEW (PORTABLE) REASON FOR EXAM: Chest pain. Pre-admission. TECHNIQUE: AP portable upright view of the chest. COMPARISON: None. RAD/Chest 1 View (Portable) IMPRESSION: Moderate left hemidiaphragm elevation is seen, with mild left basilar atelectasis present. Lungs otherwise appear clear. No evidence of pulmonary edema. No pleural effusion or pneumothorax is seen. The cardiomediastinal silhouette is within the normal range. No acute osseous change is evident. Reading Location: [id number] CC: Dr. Jose Saul MD; Dr. Joes Mariee MD Shirrer: Signed Normal [facility] Emergency Department Summary on 11-01-2024 Emergency Department Summary [facility] Medical Records Department [address] [place] [address] Emergency Department Summary 11/01/24 MR#: [id number] Acct: [id number] Name: ALINE DENNIS Rep #: [id number] : 1960 64 From: Jose Mariee MD PCP: Dr. Jose Saul MD Status:REG ER Location: ED HPI History of Present Illness Chief Complaint: Palpitations Detail of Chief Complaint: No chest pain. Palpitations started 1-1/2 hours ago. Informant: patient Onset/Context/Timing Onset: Today and Hours Activity at onset: sudden Timing: Continuous Narrative Narrative: 64-year-old male history of a prior abnormal heart rhythm he thinks may have been SVT. Baseline about an hour and a half ago he started having accelerated heart rate and palpitations. Denies chest pain. Said the last time he had a year ago that resolved on its own. He has had to come to the ER before and been given medication for but he cannot remember he believes that may have been around 6 years ago. 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) Schizophrenia Obesity Type 2 diabetes mellitus Essential (primary) hypertension HLD (hyperlipidemia) Home Medications ???Medication ???Instructions ???Recorded ???Last Taken ???Type citalopram 40 mg tablet 40 mg PO DAILY 07/19/13 07/19/13 0 8:00 History 40 MG aripiprazole 30 mg tablet 30 mg PO QDAY 02/28/18 Unknown His tory benztropine 0.5 mg tablet 0.5 mg PO BID 03/01/18 Unknown His tory atenolol 25 mg tablet 75 mg PO BID 05/28/20 Unknown Hist ory glyburide 5 mg tablet 10 mg PO BID 05/28/20 Unknown Hist ory aspirin 81 mg tablet,delayed 81 mg PO DAILY 02/05/21 Unknown Hi story release (Adult Aspirin Regimen) insulin glargine 100 unit/mL (3 32 unit subcut QDAY 02/05/21 Unkno wn History mL) subcutaneous pen (Lantus Solostar U-100 Insulin) lisinopril 30 mg tablet 30 mg PO DAILY 02/05/21 Unknown Hi story metformin 1,000 mg tablet 1,000 mg PO BID 02/05/21 Unknown H istory amlodipine 10 mg tablet 10 mg PO DAILY 04/26/23 Unknown Hi story pantoprazole 20 mg tablet,delayed 20 mg PO DAILY 04/26/23 Unknown H istory release rosuvastatin 20 mg tablet 20 mg PO QHS 04/26/23 Unknown Hist ory semaglutide 0.25 mg or 0.5 mg (2 0.25 mg subcut QWEEK 04/26/23 Unkn own History mg/3 mL) subcutaneous pen injector (Ozempic) tamsulosin 0.4 mg capsule 0.4 mg PO DAILY 04/26/23 Unknown H istory Allergy/AdvReac Type Severity Reaction Status Date / Time No Known Allergies Allergy Verified 11/01/24 13:49 Family History Grandfather Heart disease Surgical History Hx of cholecystectomy Hx of appendectomy Social History Smoking Status: Former smoker alcohol intake: never caffeine: Yes Type: coffee Number of servings: 1 what type of physical activity do you participate in: walking frequency: daily duration: 15-30 minutes/day ROS ROS ED ROS Narrative Summary heart rate. No chest pain. No recent illness. Constitutional Constitutional ED: Denies chills or fever(s) Eyes Eyes: Reports none ENT ENT ED: Denies ear pain Cardiovascular Cardiovascular: Reports palpitations and racing heartbeat; Denies chest pain Respiratory/Chest Respiratory/Chest: Denies dyspnea Gastrointestinal Gastrointestinal: Denies abdominal pain Genitourinary Genitourinary ED: Denies dysuria or hematuria Musculoskeletal Musculoskeletal: Denies arthralgias Integumentary Denies abscess Neurologic Neurologic: Denies headache(s) Psychiatric Psychiatric: Denies anxiety or depression Endocrine Endocrinology: Denies cold intolerance or heat intolerance Hematologic/Lymphati c Hematologic/Lymphati c: Denies easy bleeding, easy bruising or lymphadenopathy Allergic/Immunologic Allergic/Immunologic ED: Denies mouth swelling, tongue swelling or urticaria EXAM Physical Exam Narrative Exam Narrative: 64-year-old male heart rates in the 200s. But he is awake sitting upright in bed. His initial blood pressure is 118/90. His pulse ox is 100% on room air no signs of hypoxia. H EENT exam pupils round reactive light. He is talking to me without difficulty. Neck nontender no JVD. Lungs clear to auscultation bilaterally. Heart tac (more content not included)... Normal [facility] L501.4020on 11-01-2024 TROPONIN-I HS 11 pg/mL Normal 3.0-78.0 [facility] Comment on above: Order Comment: 'TROP ' Serial specimen #1, #2 or #3: 1 Result Comment: Lashon samuel Note: New Test Units and Gender Specific Reference Ranges. For more information see Policy Stat Procedure [place] High Sensitivity Troponin (TNIH) and attachments. Performed By: #### L 100.0100, L501.4020, L500.2500, L501.9520 ####[facility] [address] [place], [address] Thyroid Stim Hormone (TSH)on 11-01-2024 TSH 4.020 uIU/mL High 0.358-3.740 [facility] Comment on above: Order Comment: 'TROP ' Serial specimen #1, #2 or #3: 1 Performed By: #### L 100.0100, L501.4020, L500.2500, L501.9520 ####[facility] [address] [place], [place], [id number] PSA,Total - Annual Screenon 08-28-2024 PSA,TOT SCREEN 0.47 ng/mL Normal 0.00-4.00 [facility] Comment on above: Result Comment: This test was performed using the TPSA assay method for the [employer] chemistry system. Values obtained with different assay methods cannot be used interchangably. When changing PSA assays in the course of monitoring a patient, additional sequential testing should be carried out to confirm baseline values. Performed By: #### L 501.9910 #### [facility] Laboratory [address] [place], [address] Lab Report: Lipid Profileon 08-08-2017 Cholesterol 157 mg/dL Invalid Interpretation Code 200 [employer] Phone: [phone] HDL Cholesterol 65 mg/dL Invalid Interpretation Code [employer] Phone: [phone] LDL Cholesterol 75 mg/dL Invalid Interpretation Code 0-130 [employer] Phone: [phone] Triglyceride 87 mg/dL Invalid Interpretation Code [employer] Phone: [phone] very low density lipoproteins 17 mg/dL Invalid Interpretation Code 5-40 [employer] Phone: [phone] Lab Report: Liver Profileon 08-08-2017 Alanine aminotransferase (ALT) 34 U/L Invalid Interpretation Code 12-78 [employer] Phone: [phone] Albumin 4.0 g/dL Invalid Interpretation Code 3.4-5.0 [employer] Phone: [phone] Alkaline phosphatase (ALP) 101 U/L Invalid Interpretation Code 45-117 [employer] Phone: [phone] Aspartate aminotransferase (AST) 24 U/L Invalid Interpretation Code 15-37 [facility] [employer] Phone: [phone] Bilirubin (direct) 0.16 mg/dL Invalid Interpretation Code 0.00-0.30 [facility] [employer] Phone: [phone] Bilirubin (total) 0.70 mg/dL Invalid Interpretation Code 0.20-1.00 [employer] [facility] Phone: [phone] Globulin 4.1 g/dL Invalid Interpretation Code 2.2-4.2 [employer] [employer] Phone: [phone] Protein 8.1 g/dL Invalid Interpretation Code 6.4-8.2 [facility] Phone: [phone] Office Visiton 03-01-2017 Documentation of current medications (procedure) Done Invalid Interpretation Code [employer] [facility] Phone: [phone] Fall risk assessment No Invalid Interpretation Code [employer] [facility] Phone: [phone] Clinical Lists Update: 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 Left ventricular Ejection fraction 60 % Invalid Interpretation Code [facility] Phone: [phone] Lab Report: Lipid Profileon 02-04-2017 Cholesterol 146 mg/dL Invalid Interpretation Code 200 [employer] Phone: [phone] HDL Cholesterol 64 mg/dL Invalid Interpretation Code [facility] Phone: [phone] LDL Cholesterol 68 mg/dL Invalid Interpretation Code 0-130 [employer] [facility] Phone: [phone] Triglyceride 71 mg/dL Invalid Interpretation Code [employer] [facility] Phone: [phone] very low density lipoproteins 14 mg/dL Invalid Interpretation Code 5-40 [facility] [employer] Phone: [phone] Lab Report: Liver Profileon 02-04-2017 Alanine aminotransferase (ALT) 36 U/L Invalid Interpretation Code 12-78 [employer] [facility] Phone: [phone] Albumin 4.1 g/dL Invalid Interpretation Code 3.4-5.0 [facility] Phone: [phone] Alkaline phosphatase (ALP) 101 U/L Invalid Interpretation Code 45-117 [employer] [facility] Phone: [phone] ALP (Bld) [Catalytic activity/Vol] 101 U/L 45-117 [facility] Phone: [phone] Aspartate aminotransferase (AST) 17 U/L Invalid Interpretation Code 15-37 [facility] Phone: [phone] Bilirubin (direct) 0.14 mg/dL Invalid Interpretation Code 0.00-0.30 [employer] [facility] Phone: [phone] Bilirubin (total) 0.60 mg/dL Invalid Interpretation Code 0.20-1.00 [employer] [facility] Phone: [phone] Globulin 3.6 g/dL High 2.3-3.5 [employer] [employer] Phone: [phone] Globulin (S) [Mass/Vol] 3.6 g/dL High 2.3-3.5 [facility] [employer] Phone: [phone] Protein 7.7 g/dL Invalid Interpretation Code 6.4-8.2 [facility] [employer] Phone: [phone] Office Visit: [facility] 08-18-20 Dietary management education, guidance, and counseling (procedure) yes Invalid Interpretation Code [employer] Phone: [phone] Documentation of current medications (procedure) Done Invalid Interpretation Code [facility] Phone: [phone] Replaced Document: [employer] 08-18-2016 EKG QRS axis -24 deg Invalid Interpretation Code [facility] Phone: [phone] electrocardiogram interpretation Sinus Rhythm WITHIN NORMAL LIMITS Invalid Interpretation Code [facility] Phone: [phone] GE use only - for [employer] import when terms are not otherwise specified 397 ms Invalid Interpretation Code [facility] Phone: [phone] Interpretation Sinus Rhythm WITHIN NORMAL LIMITS Invalid Interpretation Code [facility] Phone: [phone] P [place] 42 deg Invalid Interpretation Code [facility] Phone: [phone] P wave axis, electrocardiogram 42 deg Invalid Interpretation Code [facility] Phone: [phone] MT Interval 148 ms Invalid Interpretation Code [employer] [facility] Phone: [phone] MT interval, electrocardiogram 148 ms Invalid Interpretation Code [facility] Phone: Pulse (Heart Rate) 70 /min Invalid Interpretation Code [facility] Phone: QRS axis, electrocardiogram -24 deg Invalid Interpretation Code [facility] Phone: QRS Duration 93 ms Invalid Interpretation Code [facility] Phone: QRS duration, electrocardiogram 93 ms Invalid Interpretation Code [facility] Phone: QT Interval new path ms Invalid Interpretation Code [facility] Phone: QT interval, electrocardiogram new path ms Invalid Interpretation Code [facility] Work Phone: [phone] QTc Jall[place] 397 ms Invalid Interpretation Code [facility] Work Phone: [phone] T [place] 49 deg Invalid Interpretation Code [facility] Work Phone: [phone] T wave axis, electrocardiogram 49 deg Invalid Interpretation Code [facility] Work Phone: [phone] Clinical Lists Update: 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 08-11-2016 Left ventricular Ejection fraction 60 % [facility] [facility] Phone: [phone] Office Visiton 08-27-2014 cardiac risk group C Invalid Interpretation Code [facility] Phone: [phone] General cardiovascular disease 10Y risk [#] [place].D'Agost[place] 6 % Invalid Interpretation Code [facility] Phone: [phone] Tobacco smoking status NHIS Never smoker [facility] Phone: [phone] Tobacco use CPHS Never smoker Invalid Interpretation Code [facility] Phone: [phone] Replaced Document: Zahida E CG Observationson 08-08-2013 Pulse (Heart Rate) 406 ms Invalid Interpretation Code [facility] Phone: [phone] Clinical Lists Update: 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 07-20-2013 Anion gap 10 mmol/L Invalid Interpretation Code [facility] Phone: [phone] Anion gap [Moles/Vol] 10 mmol/L [facility] Phone: [phone] BUN/Creatinine Ratio 12.5 mg/mg Invalid Interpretation Code [facility] Work Phone: [phone] Calcium 8.7 mg/dL Invalid Interpretation Code [facility] Work Phone: [phone] Chloride 107 mmol/L Invalid Interpretation Code [facility] Phone: [phone] CO2 27.0 mmol/L Invalid Interpretation Code [facility] Work Phone: [phone] CO2 (BldV) [Partial pressure] 27.0 mmol/L [facility] Phone: [phone] Creatinine 1.2 mg/dL Invalid Interpretation Code [facility] Phone: [phone] Erythrocyte distribution width (RBC) [Ratio] 13.6 % [facility] Work Phone: [phone] Erythrocytes (RBC) 4.68 10*6/uL Invalid Interpretation Code [facility] Work Phone: [phone]() Glucose 126 mg/dL High [facility] Work Phone: 1) Glucose [Mass/Vol] 126 mg/dL High [facility] Work Phone: [phone] Hematocrit (Bld) [Volume fraction] 41.3 % [facility] Work Phone: [phone] Hematocrit (HCT) 41.3 % Invalid Interpretation Code [facility] Work Phone: [phone] Hemoglobin (HGB) 14.6 g/dL Invalid Interpretation Code [facility] Work Phone: [phone]) MCH 31.2 pg Invalid Interpretation Code [facility] Work Phone: 1) MCH (RBC) [Entitic mass] 31.2 pg [facility] Work Phone: [phone]) MCHC 35.4 g/dL Invalid Interpretation Code [facility] Work Phone: [phone] MCHC (RBC) [Mass/Vol] 35.4 g/dL [facility] Work Phone: [phone]) MCV 88.2 fL Invalid Interpretation Code [facility] Work Phone: [phone] MCV (RBC) [Entitic vol] 88.2 fL [facility] Work Phone: 1) Platelets 280 10*3/mm3 Invalid Interpretation Code [facility] Work Phone: 1) Platelets (Bld) [#/Vol] 280 10*3/mm3 [facility] Work Phone: [phone] Potassium 4.3 mmol/L Invalid Interpretation Code [facility] Work Phone: 1) RBC (Bld) [#/Vol] 4.68 10*6/uL [facility] Phone: [phone] RDW-CA 13.6 % Invalid Interpretation Code [facility] Work Phone: 1) Sodium 144 mmol/L Invalid Interpretation Code [facility] Work Phone: [phone] Urea nitrogen 15 mg/dL Invalid Interpretation Code [facility] Work Phone: [phone] WBC (Bld) [#/Vol] 9.3 10*3/uL [facility] Work Phone: [phone] WBC (Leukocytes) 9.3 10*3/uL Invalid Interpretation Code [facility] Work Phone: [phone] Vital Signs Date Time Vital Sign Value Performing Clinician Nara lewis 03-28-2025 09:24-0400 Body height 177.[address] Jose Saul MD Work Phone: [facility] [place] 03-28-2025 09:24-0400 Body mass index (BMI) [Ratio] 30.1 kg/m2 Dr. Jose Saul MD Work Phone: [facility] [place] 03-28-2025 09:24-0400 Body weight 95.[address] Jose Saul MD Work Phone: [facility] [place] 03-28-2025 09:24-0400 Diastolic blood pressure 76 mm[Hg] Dr. Jose Saul MD Work Phone: [facility] [place] 03-28-2025 09:24-0400 Heart rate 75 /min Dr. Jose Saul MD Work Phone: [facility] [place] 03-28-2025 09:24-0400 Respiratory rate 18 /min Dr. Jose Saul MD Work Phone: [facility] [place] 03-28-2025 09:24-0400 Systolic blood pressure 118 mm[Hg] Dr. Jose Saul MD Work Phone: [facility] [place] 03-18-2025 12:37-0400 Body temperature 97.9 [degF] Dr. Jose Saul MD Work Phone: [facility] [place] 03-18-2025 12:37-0400 Diastolic blood pressure 90 mm[Hg] Dr. Jose Saul MD Work Phone: [facility] [place] 03-18-2025 12:37-0400 Heart rate 62 /min Dr. Jose Saul MD Work Phone: [facility] [place] 03-18-2025 12:37-0400 Respiratory rate 15 /min Dr. Jose Saul MD Work Phone: [facility] [place] 03-18-2025 12:37-0400 SaO2% (BldA) [Mass fraction] 100 % Dr. Jose Saul MD Work Phone: [facility] [place] 03-18-2025 12:37-0400 Systolic blood pressure 125 mm[Hg] Dr. Jose Saul MD Work Phone: [facility] [place] 03-18-2025 07:40-0400 Body height 177.[address] Jose Saul MD Work Phone: [facility] [place] 03-18-2025 07:40-0400 Body mass index (BMI) [Ratio] 30.7 kg/m2 Dr. Jose Saul MD Work Phone: [facility] [place] 03-18-2025 07:40-0400 Body weight 97.[address] Jose Saul MD Work Phone: [facility] [place] 03-01-2017 11:36-0400 BMI (Body Mass Index) 36.15 kg/m2 Madelynleonardo Allison [facility] Work Phone: 03-01-2017 11:36-0400 BP Diastolic 70 mm[Hg] Madelyn Estefany [facility] Work Phone: 03-01-2017 11:36-0400 BP Systolic 130 mm[Hg] [facility] Work Phone: 03-01-2017 11:36-0400 Height 177.8 cm [facility] Estefany [facility] Work Phone: 03-01-2017 11:36-0400 Pulse (Heart Rate) 76 /min [facility] Estefany [facility] Work Phone: 03-01-2017 11:36-0400 Respiratory Rate 20 /min Madelyn [facility] Work Phone: 03-01-2017 11:36-0400 Weight 114.31 kg Madelyn [facility] Work Phone: 08-18-2016 11:54-0500 Heart rate 70 /min Emelia [facility] Work Phone: 08-18-2016 11:35-0500 BMI (Body Mass Index) 37.33 kg/m2 MD [facility] Work Phone: 08-18-2016 11:35-0500 Body weight 118.03 kg Emelia Sofyamarcos [facility] Work Phone: 08-18-2016 11:35-0500 BP Diastolic 84 mm[Hg] MD [facility] Work Phone: 08-18-2016 11:35-0500 BP Systolic 124 mm[Hg] MD [facility] Work Phone: 08-18-2016 11:35-0500 BSA (Body Surface Area) 2.34 m2 MD [facility] Work Phone: 08-18-2016 11:35-0500 Pulse (Heart Rate) 80 /min MD [facility] Work Phone: 08-18-2016 11:35-0500 Respiratory Rate 20 /min MD [facility] Work Phone: 08-18-2016 11:35-0500 Weight 118.03 kg MD [facility] Work Phone: 08-08-2013 13:32-0500 Heart rate 406 ms Emelia Corine [facility] Work Phone: 08-08-2013 13:03-0500 Height 177.8 cm MD [facility] Work Phone: Encounters Encounter Date Encounter Type Care Provider Facility Start: 05-01-2025 ambulatory Blade Antoine NP Facility :[facility] [place] Start: 03-28-2025 End: 03-28-2025 Patient encounter procedure Blade Antoine [employer] -[facility] Work Phone: Start: 03-28-2025 End: 03-28-[address] Jose Saul MD Work Phone: [facility] Work Phone: Start: 03-27-2025 Encounter for genera l adult medical examination without abnormal findings Marquis Leo [facility] [place] Start: 03-18-2025 ambulatory [facility] Facility:[facility] Start: 03-18-2025 Non-patient / Non-visit Dr. Briggs [facility] Work Phone: Start: 03-18-2025 End: 03-18-[address] Jose Saul MD Work Phone: [facility] [place] Work Phone: Start: 03-18-2025 End: 03-18-[address] Marquis Leo DO -Pulmonary Services/Neurology Work Phone: Start: 03-18-2025 End: 03-18-2025 Emergency department patient visit Dr. Jose Saul MD Work Phone: -Emergency Department Work Phone: Start: 03-18-2025 End: 03-18-2025 ambulatory [facility] Facility:[facility] [place] Start: 11-26-2024 End: 11-26-[address] Jose Saul MD -Laboratory [facility] Start: 11-26-2024 End: 11-26-2024 ambulatory Jose Saul Facility:[facility] [place] Start: 11-01-2024 End: 11-01-2024 Emergency department patient visit Jose Mariee Facility:[facility] [place] Start: 08-28-2024 End: 08-28-2024 ambulatory Starla Sanchez Facility:[facility] [place] Procedures Date Procedure Procedure Detail Performing Clinician Start: 03-18-2025 X-ray of chest, PA a nd lateral views Dr. Jose Saul MD Work Phone: Start: 03-18-[address] Jose Saul MD Work Phone: Start: 11-26-2024 Measurement of renal function Dr. Jose Saul MD Work Phone: Comment on above: GFR Calc Start: 11-26-2024 Vitamin D, 25-hydrox y measurement Dr. Jose Saul MD Work Phone: Comment on above: Vitamin D 25(OH) Sta tus Range Deficiency <20 ng/mL (50nmol/L) Insufficiency 20 - 30 ng/mL (50 - 75 nmol/L) Sufficiency 30 - 100 ng/mL (75 - 250 nmol/L) Toxicity >100 ng/mL (>250 nmol/L) Start: 08-08-2017 End: 08-08-2017 *Hepatic Function Panel Jr Jeffery Start: 08-08-2017 End: 08-08-2017 Lipid 1996 panel - Serum or Plasma Geovani Ahn MD Start: 03-01-2017 End: 03-01-2017 Follow Up Appt 1 year Geovani Ahn MD Start: 03-01-2017 End: 03-01-2017 MMJr Ahn MD Start: 03-01-2017 End: 03-01-2017 Follow Up Appt 1 year Geovani Ahn MD Start: 03-01-2017 End: 03-01-2017 MMJr Ahn MD Start: 02-04-2017 End: 02-04-2017 *Hepatic Function Panel Jr Jeffery Start: 02-04-2017 End: 02-04-2017 Lipid 1996 panel - Serum or Plasma Geovani Ahn MD Start: 02-04-2017 End: 02-04-2017 *Hepatic Function Panel Jr Jeffery Start: 02-04-2017 End: 02-04-2017 Lipid panel [AGGREGATE] Jr Jeffery Start: 08-18-2016 End: 08-18-2016 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 Sharmila Abdi PA-C Work Phone: Start: 08-18-2016 End: 08-18-2016 Ecg routine ecg w/least 12 lds w/i&r Sharmila Abdi PA-C Work Phone: Start: 08-18-2016 End: 08-18-2016 Follow Up Appt 6 months Sharmila ash PA-C Work Phone: Start: 08-18-2016 End: 08-18-2016 Dietary management education, guidance, and counseling Emelia Corine Start: 08-18-2016 End: 08-18-2016 Documentation of current medications Emelia Corine Start: 08-18-2016 End: 08-18-2016 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 Sharmila Abdi PA-C Work Phone: Start: 08-18-2016 End: 08-18-2016 Electrocardiogram, complete Sharmila Abdi PA-C Work Phone: Start: 08-18-2016 End: 08-18-2016 Follow Up Appt 6 months Sharmila ash PA-C Work Phone: Start: 08-09-2016 End: 08-11-2016 *Hepatic Function Panel Jr Jeffery Start: 08-09-2016 End: 08-11-2016 Lipid 1996 panel - Serum or Plasma Geovani Ahn MD Start: 08-09-2016 End: 08-11-2016 *Hepatic Function Panel Jr Jeffery Start: 08-09-2016 End: 08-11-2016 Lipid panel [AGGREGATE] Jr Jeffery Start: 02-18-2016 End: 02-24-2016 *Hepatic Function Panel Geovani Jr Wan Start: 02-18-2016 End: 02-24-2016 Lipid 1996 panel - Serum or Plasma Geovani Ahn MD Start: 02-18-2016 End: 02-24-2016 *Hepatic Function Panel Geovani Jr Wan Start: 02-18-2016 End: 02-24-2016 Lipid panel [AGGREGATE] Jr Jeffery Start: 08-20-2015 End: 08-20-2015 Follow Up Appt 1 year Geovani Ahn MD Start: 08-20-2015 End: 08-20-2015 MMM Geovani Ahn MD Start: 08-20-2015 End: 08-20-2015 Follow Up Appt 1 year Geovani Ahn MD Start: 08-20-2015 End: 08-20-2015 MMM Geovani Ahn MD Start: 03-01-2015 End: 08-20-2015 *Hepatic Function Panel Jr Jeffery Start: 03-01-2015 End: 08-20-2015 Lipid 1996 panel - Serum or Plasma Geovani Ahn MD Start: 03-01-2015 End: 08-20-2015 *Hepatic Function Panel Jr Jeffery Start: 03-01-2015 End: 08-20-2015 Lipid panel [AGGREGATE] Jr Jeffery Start: 08-27-2014 End: 08-27-2014 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 Geovani Ahn MD Start: 08-27-2014 End: 08-27-2014 Follow Up Appt 1 year Geovani Ahn MD Start: 08-27-2014 End: 08-27-2014 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 Geovani Ahn MD Start: 08-27-2014 End: 08-27-2014 Follow Up Appt 1 year Geovani Ahn MD Start: 08-03-2014 End: 08-20-2014 *Hepatic Function Panel Jr Jeffery Start: 08-03-2014 End: 08-20-2014 Lipid 1996 panel - Serum or Plasma Geovani Ahn MD Start: 08-03-2014 End: 08-20-2014 *Hepatic Function Panel Jr Jeffery Start: 08-03-2014 End: 08-20-2014 Lipid panel [AGGREGATE] Jr Jeffery Start: 02-18-2014 End: 02-18-2014 Follow Up Appt 6 months Sharmila ash PA-C Work Phone: Start: 02-18-2014 End: 02-18-2014 PFM Sharmila Abdi PA-C Work Phone: Start: 02-18-2014 End: 02-18-2014 Follow Up Appt 6 months Sharmila ash PA-C Work Phone: Start: 02-18-2014 End: 02-18-2014 PFM Sharmila Abdi PA-C Work Phone: Start: 01-01-2014 End: 01-29-2014 *Hepatic Function Panel Jr Jeffery Start: 01-01-2014 End: 01-29-2014 Lipid 1996 panel - Serum or Plasma Geovani Ahn MD Start: 01-01-2014 End: 01-29-2014 *Hepatic Function Panel Jr Jeffery Start: 01-01-2014 End: 01-29-2014 Lipid panel [AGGREGATE] Jr Jeffery Start: 08-08-2013 End: 08-08-2013 Ecg routine ecg w/least 12 lds w/i&r Geovani Ahn MD Start: 08-08-2013 End: 08-08-2013 Follow Up Appt 6 months Jr Jeffery Start: 08-08-2013 End: 08-08-2013 JESUS Ahn MD Start: 08-08-2013 End: 08-08-2013 Electrocardiogram, complete Geovani Ahn MD Start: 08-08-2013 End: 08-08-2013 Follow Up Appt 6 months Jr Jeffery Start: 08-08-2013 End: 08-08-2013 JESUS Ahn MD Plan of Treatment Date Care Activity Detail Author Start: 03-18-2025 [facility] Start: 03-18-2025 Ambulatory ECG [facility] Start: 03-18-2025 [facility] Start: 03-01-2018 End: 03-01-2018 Appointment Appointment [facility] Work Phone: Start: 03-01-2018 End: 03-01-2018 Appointment Appointment [facility] Work Phone: Start: 02-06-2018 End: 08-12-2017 *Hepatic Function Panel *Hepatic Function Panel [facility] Work Phone: Start: 02-06-2018 End: 08-12-2017 Lipid panel [AGGREGATE] *Lipid Profile CC PCP [facility] Work Phone: Start: 08-08-2017 End: 08-08-2017 *Hepatic Function Panel *Hepatic Function Panel [facility] Work Phone: Start: 08-08-2017 End: 08-08-2017 Lipid panel [AGGREGATE] *Lipid Profile CC PCP [facility] Work Phone: Start: 08-08-2017 End: 02-19-2017 *Hepatic Function Panel *Hepatic Function Panel [facility] Work Phone: Start: 08-08-2017 End: 02-19-2017 Lipid panel [AGGREGATE] *Lipid Profile CC PCP [facility] Work Phone: Start: 03-01-2017 End: 03-01-2017 Follow Up Appt 1 year Follow Up Appt 1 year [facility] Work Phone: Start: 03-01-2017 End: 03-01-2017 MMM MMM [facility] Work Phone: Start: 03-01-2017 End: 03-01-2017 Appointment Appointment [facility] Work Phone: Start: 03-01-2017 End: 03-01-2017 Appointment Appointment [facility] Work Phone: Start: 03-01-2017 End: 03-01-2017 Follow Up Appt 1 year Follow Up Appt 1 year [facility] Work Phone: Start: 03-01-2017 End: 03-01-2017 MMM MMM [facility] Work Phone: Start: 02-04-2017 End: 02-04-2017 *Hepatic Function Panel *Hepatic Function Panel [facility] Work Phone: Start: 02-04-2017 End: 02-04-2017 Lipid panel [AGGREGATE] *Lipid Profile CC PCP [facility] Work Phone: Start: 02-04-2017 End: 02-04-2017 *Hepatic Function Panel *Hepatic Function Panel [facility] Work Phone: Start: 02-04-2017 End: 02-04-2017 Lipid panel [AGGREGATE] *Lipid Profile CC PCP [facility] Work Phone: Start: 08-18-2016 End: 08-18-2016 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 [facility] Work Phone: Start: 08-18-2016 End: 08-18-2016 Ecg routine ecg w/least 12 lds w/i&r EKG (In office) [facility] Work Phone: Start: 08-18-2016 End: 08-18-2016 Follow Up Appt 6 months Follow Up Appt 6 months [facility] Work Phone: Start: 08-18-2016 End: 08-18-2016 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 [facility] Work Phone: Start: 08-18-2016 End: 08-18-2016 Electrocardiogram, complete EKG (In office) [facility] Work Phone: Start: 08-18-2016 End: 08-18-2016 Follow Up Appt 6 months Follow Up Appt 6 months [facility] Work Phone: Start: 08-09-2016 End: 08-09-2016 *Hepatic Function Panel *Hepatic Function Panel [facility] Work Phone: Start: 08-09-2016 End: 08-09-2016 Lipid panel [AGGREGATE] *Lipid Profile CC PCP [facility] Work Phone: Start: 08-09-2016 End: 08-09-2016 *Hepatic Function Panel *Hepatic Function Panel [facility] Work Phone: Start: 08-09-2016 End: 08-09-2016 Lipid panel [AGGREGATE] *Lipid Profile CC PCP [facility] Work Phone: Start: 02-18-2016 End: 02-24-2016 *Hepatic Function Panel *Hepatic Function Panel [facility] Work Phone: Start: 02-18-2016 End: 02-24-2016 Lipid panel [AGGREGATE] *Lipid Profile CC PCP [facility] Work Phone: Start: 02-18-2016 End: 02-24-2016 *Hepatic Function Panel *Hepatic Function Panel [facility] Work Phone: Start: 02-18-2016 End: 02-24-2016 Lipid panel [AGGREGATE] *Lipid Profile CC PCP [facility] Work Phone: Start: 08-20-2015 End: 08-20-2015 Follow Up Appt 1 year Follow Up Appt 1 year [facility] Work Phone: Start: 08-20-2015 End: 08-20-2015 MMM MMM [facility] Work Phone: Start: 08-20-2015 End: 08-20-2015 Follow Up Appt 1 year Follow Up Appt 1 year [facility] Work Phone: Start: 08-20-2015 End: 08-20-2015 MMM MMM [facility] Work Phone: Start: 03-01-2015 End: 08-20-2015 *Hepatic Function Panel *Hepatic Function Panel [facility] Work Phone: Start: 03-01-2015 End: 08-20-2015 Lipid panel [AGGREGATE] *Lipid Profile CC PCP [facility] Work Phone: Start: 03-01-2015 End: 08-20-2015 *Hepatic Function Panel *Hepatic Function Panel [facility] Work Phone: Start: 03-01-2015 End: 08-20-2015 Lipid panel [AGGREGATE] *Lipid Profile CC PCP [facility] Work Phone: Start: 08-27-2014 End: 08-27-2014 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 [facility] Work Phone: Start: 08-27-2014 End: 08-27-2014 Follow Up Appt 1 year Follow Up Appt 1 year [facility] Work Phone: Start: 08-27-2014 End: 08-27-2014 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 [facility] Work Phone: Start: 08-27-2014 End: 08-27-2014 Follow Up Appt 1 year Follow Up Appt 1 year [facility] Work Phone: Start: 08-03-2014 End: 08-20-2014 *Hepatic Function Panel *Hepatic Function Panel [facility] Work Phone: Start: 08-03-2014 End: 08-20-2014 Lipid panel [AGGREGATE] *Lipid Profile CC PCP [facility] Work Phone: Start: 08-03-2014 End: 08-20-2014 *Hepatic Function Panel *Hepatic Function Panel [facility] Work Phone: Start: 08-03-2014 End: 08-20-2014 Lipid panel [AGGREGATE] *Lipid Profile CC PCP [facility] Work Phone: Start: 02-18-2014 End: 02-18-2014 Follow Up Appt 6 months Follow Up Appt 6 months [facility] Work Phone: Start: 02-18-2014 End: 02-18-2014 PFM PF [facility] Work Phone: Start: 02-18-2014 End: 02-18-2014 Follow Up Appt 6 months Follow Up Appt 6 months [facility] Work Phone: Start: 02-18-2014 End: 02-18-2014 PFM PFM [facility] Work Phone: Start: 01-01-2014 End: 01-29-2014 *Hepatic Function Panel *Hepatic Function Panel [facility] Work Phone: Start: 01-01-2014 End: 01-29-2014 Lipid panel [AGGREGATE] *Lipid Profile CC PCP [facility] Work Phone: Start: 01-01-2014 End: 01-29-2014 *Hepatic Function Panel *Hepatic Function Panel [facility] Work Phone: Start: 01-01-2014 End: 01-29-2014 Lipid panel [AGGREGATE] *Lipid Profile CC PCP [facility] Work Phone: Start: 08-08-2013 End: 08-08-2013 Ecg routine ecg w/least 12 lds w/i&r EKG (In office) [facility] Work Phone: Start: 08-08-2013 End: 08-08-2013 Follow Up Appt 6 months Follow Up Appt 6 months [facility] Work Phone: Start: 08-08-2013 End: 08-08-2013 MMM MMM [facility] Work Phone: Start: 08-08-2013 End: 08-08-2013 Electrocardiogram, complete EKG (In office) [facility] Work Phone: Start: 08-08-2013 End: 08-08-2013 Follow Up Appt 6 months Follow Up Appt 6 months [facility] Work Phone: Start: 08-08-2013 End: 08-08-2013 MMM MMM [facility] Work Phone: Patient Education [facility] Work Phone: Patient referral [facility] Work Phone: [facility] Payers Date Payer Category Payer Unknown [id number] 2024 Unknown [id number] 2024 Medicare [id number] 2024 Self-pay 1993 Medicare MEDICARE PART A B [id number] Medicare ANTHEM MEDICARE PPO [id number] Unknown [id number] 2.16.8 [id number] Unknown [id number] 2.16.8 [id number] Unknown [id number] 2.16.8 [id number] Unknown [id number] 2.16.8 [id number] Unknown [id number] 2.16.8 [id number] Unknown [id number] 2.16.8 [id number] Unknown [id number] 2.16.8 [id number] Unknown [id number] 2.16.8 [id number] Social History Date Type Detail Facility Start: [facility] Start: 10-30-2020 Alcohol Alcohol [facility] Start: 10-30-2020 Lives Lives [facility] Start: 07-20-2013 Tobacco Use Tobacco Use [facility] Start: 1960 Sex Assigned At Male [facility] Mental Status Date Assessment Result Facility 03-18-2025 Cognitive function Voice/Name [facility] Work Phone: Discharge summary 03-18-2025 Note Date & Type Note Facility 03-18-2025 Discharge summary [facility] Radiology Diagnostic study note 03-18-2025 Note Date & Type Note Facility 03-18-2025 Radiology Diagnostic study note [facility] Imaging Services [address] [place] [address] Chest PA and Lateral MR#: [id number] Acct: [id number] Name: ALINE DENNIS Rep #: [id number] : 1960 M 64 From: Aj Mancuso MD PCP: Dr. Jose Saul MD Status: REG ER Study:Chest PA and Lateral Date of Exam: 03/18/25 Exam# [id number] Ordering Dr: Shaniqua Leo DO PROCEDURE: CHEST PA AND LATERAL 03/18/2025 REASON FOR EXAM: CHEST PAIN TECHNIQUE: CHEST PA AND LATERAL COMPARISON: Portable chest, 11/01/2024 FINDINGS: There is improved aeration of the left lung with improved excursion of the left hemidiaphragm. The heart size is normal. The mediastinum and pulmonary vascular pattern are normal. The upper abdominal bowel gas pattern is normal. There are no significant bony abnormalities of the chest. RAD/Chest PA and Lateral IMPRESSION: Improved aeration of the left lung as described. No evidence of acute cardiopulmonary pathology. Reading Location: [id number] CC: Dr. Jose Saul MD; Dr. 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 Jose Saul MD Status :REG ER Location: ED HPI History of Present Illness Chief Complaint: Palpitations Narrative Narrative: Patient is a 64-year-old male with past medical history of AVNRT, schizophrenia,type 2 diabetes, hypertension, hyperlipidemia who presented to the emergency department with a concern of palpitations. Patient states that around 930 last night he felt like he was developing palpitations and he states that he decided to go to bed. He states that he woke up this morning with the same feeling and he states that he has a history of this. Patient notes that here in the emergency department he feels back to his baseline and does not have any complaints. Patient states that he has an appointment with his physician on his primary care doctor. He denies any recent travel history denies any history of blood clots he states that he is not on any blood thinning medications. 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) Schizophrenia Obesity Type 2 diabetes mellitus Essential (primary) hypertension HLD (hyperlipidemia) Home Medications ?Medication ?Instructions ?Recorded ?Last Taken ?Type citalopram 40 mg tablet 40 mg PO DAILY 07/19/1307/03 08:00 History 40 MG aripiprazole 30 mg tablet 30 mg PO QDAY 02/28/18 Unkno wn History benztropine 0.5 mg tablet 0.5 mg PO BID 03/01/18 Unkno wn History atenolol 25 mg tablet 75 mg PO BID 05/28/20 Unknow n History glyburide 5 mg tablet 10 mg PO BID 05/28/20 Unknow n History aspirin 81 mg tablet,delayed 81 mg PO DAILY 02/05/21 U nknown History release (Adult Aspirin Regimen) insulin glargine 100 unit/mL (3 32 unit subcut QDAY Unknown History mL) subcutaneous pen (Lantus Solostar U-100 Insulin) lisinopril 30 mg tablet 30 mg PO DAILY 02/05/21 Unkn own History metformin 1,000 mg tablet 1,000 mg PO BID 02/05/21 Unk nown History amlodipine 10 mg tablet 10 mg PO DAILY 04/26/23 Unkn own History pantoprazole 20 mg tablet,delayed 20 mg PO DAILY 04/26 Unknown History release rosuvastatin 20 mg tablet 20 mg PO QHS 04/26/23 Unknow n History semaglutide 0.25 mg or 0.5 mg (2 0.25 mg subcut QWEEK 04/26/23 Unknown History mg/3 mL) subcutaneous pen injector (Ozempic) tamsulosin 0.4 mg capsule 0.4 mg PO DAILY 04/26/23 Unk nown History Allergy/AdvReac Type Severity Reaction Status Date / Time No Known Allergies Allergy Verified 03/18/25 07:41 Family History Grandfather Heart disease Surgical History Hx of cholecystectomy Hx of appendectomy Social History Smoking Status: Former smoker alcohol intake: never caffeine: Yes Type: coffee Number of servings: 1 what type of physical activity do you participate in: walking frequency: daily duration: 15-30 minutes/day ROS ROS ED ROS Narrative Constitutional: Denies fevers, chills, headaches, lightheadedness, dizziness Eyes: Denies change in vision double vision blurry vision Cardiovascular: Complains of palpitations as noted above denies chest pain Respiratory: Denies coughing wheezing shortness of breath Abdomen: Denies abdominal pain nausea vomit diarrhea : Denies urinary symptoms Neurological: Denies numbness, weakness, tingling Musculoskeletal: Denies back pain Skin: Denies rashes or lesions EXAM Physical Exam Narrative Exam Narrative: General: Patient is lying in bed rest comfortably do not appear to be in acute distress Head: Atraumatic, normocephalic Eyes: PERRL bilaterally, EOMI bilaterally, no conjunctival injection noted Neck: Soft, supple, trachea midline Cardiovascular: Regular rate and rhythm no murmurs's noted Respiratory: Clear to auscultation bilaterally Abdomen: Soft, nondistended, nontender to palpation Extremities: +5/5 strength noted in the bilateral upper and lower extremities, radial pulses +2/4 in the bilateral extremities, no pedal edema on exam Neurological: Patient following commands knew that he was at [facility] year is 2024 Skin: Warm, dry, intact no rashes or lesions noted Const Vital Signs: 03/18/25 07:40 03/18/25 07:40 03/18/25 07:49 Temperature 97.1 F L Temperature Source Temporal Pulse Rate 93 Respiratory Rate 14 Respiratory Effort Normal Non-Labored Blood Pressure 113/73 Blood Pressure Mean 86 Pulse Ox 98 Oxygen Delivery Method Room Air Room Air 03/18/25 09:40 03/18/25 11:00 Temperature Temperature Source Pulse Rate 61 62 Respiratory Rate 14 15 Respiratory Effort Blood Pressure 106/74 125/90 H Blood Pressure Mean 84 101 Pulse Ox 99 100 Oxygen Delivery Method Room Air Room Air MDM MDM MDM Narrative Medical decision making narrative: Patient is a 64-year-old male who presented to the emergency department the chief complaint of palpitations. On the differential diagnosis includes but notlimited to ACS, pneumonia, pneumothorax, AVNRT. Once the workup is obtained reviewed he will be reevaluated. Patient's CBC reviewed and showed a white blood count of 12,000, hemoglobin 15.7, plate count was 194. Patient sodium normal 139, potassium normal 4.7, creatinine was 1.61. Patient's troponin was 59 with a delta troponin of 95. Patient's EKG reviewed and showed sinus rhythm with a rate of 86 bpm this was compared to EKG from November 01, 2024 and is largely unchanged. Patient TSH normal at 3.06, free T4 and T3 are 1 and 3.3 respectively. Patient chest x-ray reviewed by myself and by her radiology which showed improved aeration of the left lung base no other acute cardiopulmonary processes noted. Called and spoke with on-call shellfish meat separator operator Dr. Ahn who states that he can follow-up with him this week. He states that he would not make any medication adjustments after our discussion. Discussed this plan with the patient and he is agreeable this plan he would liketo go home at this point in time. We were unable to evaluate this tachycardia as he was in sinus rhythm when he arrived. We will place him on a Holter monitor. He is advised to return with worsening symptoms or concerns. His elevated troponins were likely secondary to his persistent tachycardia throughout the evening last night and cardiology agrees with this. He is not having chest pain and has not had any chest pain while in the emergency department. All question concerns answered he is discharged home in stable condition. Lab Data Labs: Laboratory Results - last 24 hr 03/18/25 03/18/25 07:50 10:25 WBC 12.2 H RBC 4.96 Hgb 15.7 Hct 46.4 MCV 93.5 MCH 31.7 MCHC 33.8 RDW Std Deviation 47.5 H RDW Coeff of Kandice 13.8 Plt Count 194 MPV 9.6 Immature Gran % (Auto) 0.600 Neut % (Auto) 62.0 Lymph % (Auto) 26.4 Josephine % (Auto) 8.1 Eos % (Auto) 2.5 Baso % (Auto) 0.4 Absolute Neuts (auto) 7.6 Absolute Lymphs (auto) 3.22 Nucleated RBC % 0 Sodium 139 Potassium 4.7 Chloride 104 Carbon Dioxide 22.1 Anion Gap 12 BUN 26 H Creatinine 1.61 H Estim Creat Clear Calc 53.47 Est GFR (MDRD) Non-Af 47 L BUN/Creatinine Ratio 16.4 Glucose 169 H Calcium 9.3 Troponin T High Sens 59 H* Troponin T Hi Sens 2 Hr 95 H* TSH 3.060 Free T4 1.00 Free T3 pg/dL 3.3 Radiography Diagnostic Testing: Clinical Impression(s) from Imaging Studies Chest X-Ray 03/18/25 08:15 IMPRESSION: Improved aeration of the left lung as described. No evidence of acute cardiopulmonary pathology. Reading Location: [id number] Discharge Plan Triage Chief Complaint: Palpitations ED Provider: Marquis Leo Dx/Rx/DC Orders Clinical Impression: Palpitation Prescriptions: No Action benztropine 0.5 mg tablet 0.5 mg PO BID glyburide 5 mg tablet 10 mg PO BID Lantus Solostar U-100 Insulin 100 unit/mL (3 mL) insulin pen 32 unit SC QDAY aripiprazole 30 mg tablet 30 mg PO QDAY lisinopril 30 mg tablet 30 mg PO DAILY metformin 1,000 mg tablet 1,000 mg PO BID aspirin [Adult Aspirin Regimen] 81 mg tablet,delayed release (DR/EC) 81 mg PO DAILY pantoprazole 20 mg tablet,delayed release (DR/EC) 20 mg PO DAILY amlodipine 10 mg tablet 10 mg PO DAILY tamsulosin 0.4 mg capsule 0.4 mg PO DAILY Ozempic 0.25 mg or 0.5 mg (2 mg/3 mL) pen injector 0.25 mg subcut QWEEK Rx Instructions: for 4 weeks citalopram 40 MG tablet 40 mg PO DAILY atenolol 25 mg tablet 75 mg PO BID rosuvastatin 20 mg tablet 20 mg PO QHS Primary Care Provider: Jose Saul Referrals: Jose Saul MD [Primary Care Provider] - Geovani Ahn MD [Med Staff - Active Staff] - Activity Restrictions/Additional Instructions: Follow-up with your shellfish meat separator operator Dr. Ahn within the week call his office for an appointment today. I did discuss with him what was going on and he states that he wants to see you within the week. Return with worsening symptoms or anyother concerns. Wear Holter monitor as instructed. Print Language: Serbian Disposition Disposition: Home, Self Care What to do if you have Problems For any increased pain, shortness of breath, bleeding, nausea or vomiting, chestpain, or any unexpected problems, contact your Primary Care Provider. Call [facility] ([phone]) or report to the closest Emergency Room. Call 911 if necessary. 03/18/25 1205 <Electronically signed by Marquis Leo DO> Cosigner Signature (if applicable): CC: Dr. Jose Saul MD ~ Signed [facility] Work Phone: Evaluation note Note Date & Type Note Facility Evaluation note No assessment information availa ble [facility] Work Phone: Hospital Discharge instructions Note Date & Type Note Facility Hospital Discharge instructions Additional Instructions Follow-up with your shellfish meat separator operator Dr. Ahn within the week call his office for an appointment today. I did discuss with him what was going on and he states that he wants to see you within the week. Return with worsening symptoms or any other concerns. Wear Holter monitor as instructed. [facility] Work Phone: Reason for referral (narrative) Note Date & Type Note Facility Reason for referral (narrative) No reason for referral information available [facility] Work Phone: Chief Complaint and Reason for Visit Chief Complaint Admit Date htn March 18, 2025 7:40 am 48 HOUR HOLTER MONITOR March 18, 2025 1 1:29am Chief Complaint Admit Date htn March 18, 2025 7:40 am 48 HOUR HOLTER MONITOR March 18, 2025 1 1:29am 48 HOUR HOLTER MONITOR March 18, 2025 1 2:34pm OVERDUE FOR F/U/LAST SEEN 2022 9:20am Reason for Visit Admit Date AVNRT (AV abdirahman re-entry tachycardia) Ju 2024 9:20am Essential (primary) hypertension March 282024 9:20am HLD (hyperlipidemia) March 28, 2025 9:2 0am Advance Directives No Advanced Directives Records Found Advance Directive Response Recorded Date/ Time Do you have a Healthcare Power of Learning Center Instructor? No March 18, 2025 7:40am Advance Directives Yes July 19, 2013 7:03pm Summary Purpose Family History No Family History Records Found Additional Source Comments Care Teams (unrecognized sec tion and content) Team Status: Active Member Role Status Dates Dr. Jose Saul MD Primary Care Provider Acti ve Team Status: Inactive Member Role Status Dates Dr. Jose Saul MD Primary Care Provider Acti ve Start: November 26, 2024 End: November 26, 2024 Dr. Jose Saul MD Attending Provider Active Start: November 26, 2024 End: November 26, 2024 Dr. Jose Saul MD Referring Provider Active Start: November 26, 2024 End: November 26, 2024 Team Status: Inactive Member Role Status Dates Dr. Jose Saul MD Primary Care Provider Acti ve Start: March 18, 2025 End: March 18, 2025 Dr. Marquis Leo DO Emergency Provider Active Start: March 18, 2025 End: March 18, 2025 Team Status: Active Member Role Status Dates Dr. Jose Saul MD Primary Care Provider Acti ve Start: March 18, 2025 Dr. Marquis Leo DO Attending Provider Active Start: March 18, 2025 Team Status: Inactive Member Role Status Dates Dr. Jose Saul MD Primary Care Provider Acti ve Start: March 18, 2025 End: March 18, 2025 Dr. Marquis Leo DO Attending Provider Active Start: March 18, 2025 End: March 18, 2025 Team Status: Inactive Member Role Status Dates Dr. Jose Saul MD Primary Care Provider Acti ve Start: March 18, 2025 End: March 18, 2025 Dr. Marquis Leo DO Attending Provider Active Start: March 18, 2025 End: March 18, 2025 Dr. Marquis Leo DO Emergency Provider Active Start: March 18, 2025 End: March 18, 2025 Team Status: Active Member Role Status Dates Dr. Jose Saul MD Primary Care Provider Acti ve Start: March 18, 2025 Dr. Geovani Ahn MD Attending Provider Active S tart: March 18, 2025 Dr. Marquis Leo DO Referring Provider Active Start: March 18, 2025 Team Status: Inactive Member Role Status Dates Dr. Jose Saul MD Primary Care Provider Acti ve Start: March 28, 2025 End: March 28, 2025 Dr. Jose Saul MD Referring Provider Active Start: March 28, 2025 End: March 28, 2025 Blade Antoine STORAGE BATTERY INSPECTOR AND TESTER, STORAGE BATTERY INSPECTOR AND TESTER-C Attending Provider Active S tart: March 28, 2025 End: March 28, 2025 Goals (unrecognized section and content) Goals may be documented in a n alternate sectionGoals may be documented in an alternate sectionGoals may be documented in an alternate section (unrecognized sect ion and content) No Status Records Found INFORMATION SOURCE (unrecogn ized section and content) DATE CREATED AUTHOR 04/21/2025 [facility] FOR RECORDS PERTAINING TO PATIENTS WHO ARE OR HAVE BEEN ENROLLED IN A CHEMICAL DEPENDENCY/SUBSTANCEABUSE PROGRAM, SOME INFORMATION MAY BE OMITTED. This clinical summary was aggregated from multiple sources. Caution should be exercised in using it in the provision of clinical care. This summary normalizes information from multiple sources, and as a consequence, information in this document may materially change the coding, format and clinical context of patient data. In addition, data may be omitted in some cases. CLINICAL DECISIONS SHOULD BE BASED ON THE PRIMARY CLINICAL RECORDS. [employer] [facility]. provides no warranty or guarantee of the accuracy or completeness of information in this document.
[2025-04-27 20:48] LABS: Hematocrit 43.7 % (40-54); Hemoglobin 15.5 g/dL (13.0-16.5); Immature Granulocytes Count 0.030 X10^3/uL (0.0-0.0); Mean Corp Hgb Conc 35.5 g/dL (32-36); Mean Corpuscular Volume 90.7 fL (80-94); Mean Platelet Vol. 9.8 fl (6.2-12.0); NRBC Flagged by Analyzer 0 % (0-5); Platelet Count 218 K/mm3 (150-450); RBC Distribution Width CV 12.4 % (11.6-14.6); RBC Distribution Width SD 41.1 fl (35.1-43.9); Red Blood Count 4.82 M/mm3 (4.6-6.2); White Blood Count 9.2 K/mm3 (4.4-11.0)
[2025-04-27 20:57] LABS: Alcohol, Blood (Medical)-Serum < 10.1 mg/dL (<=10.0)
[2025-04-27 21:00] LABS: Mucous, Urine 0 SEEN /hpf (<or=2+); Red Blood Cells-Urine 0 SEEN /hpf (0-5)
[2025-04-27 21:02] LABS: Color, Urine Straw (Yellow); Glucose, Dipstick 1000 mg/dl (Normal); Ketone-Dipstick Negative (Negative); Leukocyte Esterase-Dipstick Negative /ul (Negative); Nitrite-Dipstick Negative (Negative); Occult Blood-Urine Negative /ul (Negative); Protein-Dipstick Negative (Negative); Specific Gravity, Urine 1.010 (1.002-1.030); Urine Bilirubin Dipstick Negative (Negative)
[2025-04-27 21:03] LABS: Anion Gap 11 (5-15); BUN 14 mg/dL (4-19); BUN/Creat Ratio 14.3 RATIO (10-20); Calcium,Total 9.6 mg/dL (7.6-11.0); Carbon Dioxide 24.7 mmol/L (21.0-32.0); Chloride 100 mmol/L (98-108); Estimated Creatinine Clearance 83.05 ml/min (50-250); Glucose 143 mg/dL (70-99); Potassium 4.3 mmol/L (3.3-5.1)
[2025-04-27 21:11] VITALS: BP 136/76; PULSE 68; RESP 18; O2SAT 97
[2025-04-27 21:12] LABS: Squamous Epithelial Cells - UA 0-5 SEEN /hpf (0-5)
[2025-04-27 22:01] LABS: Barbiturate Urine NEGATIVE (< 200 ng/mL); Benzodiazepine Urine NEGATIVE (< 200 ng/mL); PCP Urine NEGATIVE (< 25 ng/mL); THC Urine NEGATIVE (< 50 ng/mL)
[2025-04-27 23:00] VITALS: PULSE 74; RESP 18; O2SAT 98
[2025-04-27 23:50] VITALS: PULSE 77; O2SAT 96
[2025-04-28 00:22] VITALS: BP 118/73; PULSE 75; RESP 16; O2SAT 97
--- NOTE | 2025-04-28 03:59 | ED.RN ---
Rasheed RN from [facility] updated regarding pt's behavior and status and placement of buenrostro. Questions/concerns answered. Per Rasheed, she will be reaching out to medical and crisis regarding pt's buenrostro to see if pt can be transferred with buenrostro
--- NOTE | 2025-04-28 06:01 | PCA ---
pt accepted at [facility] dr. garcia 100 unit local squad arranged
[2025-04-28 06:08] VITALS: BP 118/73; PULSE 75; RESP 16; TEMP 37.1; O2SAT 97
[2025-04-28 06:23] VITALS: BP 154/89; PULSE 71; RESP 16; O2SAT 98
[2025-04-28] MEDS: Aspirin E.C. 81 MG Tablet PO (07:59)
== END 2025-04-28 08:57 ==
PROVIDERS: Emergency Provider Emergency Medicine; PCP Family Medicine; Visit Provider Emergency Medicine
DX: F20.9 Schizophrenia, unspecified (principal); F29 Unspecified psychosis not due to a substance or known physiological condition; E11.9 Type 2 diabetes mellitus without complications; I10 Essential (primary) hypertension; R45.850 Homicidal ideations; E78.5 Hyperlipidemia, unspecified; I25.2 Old myocardial infarction; Z79.82 Long term (current) use of aspirin; Z79.899 Other long term (current) drug therapy; Z79.84 Long term (current) use of oral hypoglycemic drugs; Z87.891 Personal history of nicotine dependence
CPT/HCPCS: 51702; 70450; 80048; 80307; 81001; 82077; 85025; 93005; 99284; A4216

== ENCOUNTER → 2025-05-24 | Outpatient (CLI) | payer MEDICARE, SELFPAY ==
--- NOTE | 2025-05-24 08:25 | ECHOD_ITS ---
Reason For Study Reason For Study: SVT Procedure This was a 2D Doppler, Color Flow transthoracic echocardiogram. Exam performed in department. Left Ventricle Normal LV size. Left ventricular systolic function is normal. The left ventricular ejection fraction is 60 %. Stage 1 diastolic dysfunction. No regional wall motion abnormalities noted. Right Ventricle Normal RV size. Normal systolic function. Atria Normal left atrium. Normal right atrium. Mitral Valve Normal mitral valve. Mild (1+) anteriorly directed mitral valve insufficiency. Tricuspid Valve Normal tricuspid valve. Trivial tricuspid valve insufficiency. Aortic Valve Trisinus/trileaflet aortic valve. Pulmonic Valve Normal pulmonic valve. Great Vessels Normal aortic root. The pulmonary artery is normal size. Inferior vena cava collapse with respiration. Pericardium/Pleural No pericardial effusion. MMode/2D Measurements & Calculations LVIDd: 4.2 cm IVSd: 1.2 cm Ao root diam: 3.1 cm LVIDs: 2.8 cm LVPWd: 1.1 cm RVDd: 3.8 cm FS: 33.7 % LAV(MOD-bp): 55.9 ml LVAd ap4: 28.7 cm2 LVAd ap2: 29.6 cm2 LAV(MOD-bp) Indexed: 28.0 ml/m2 LVLd ap4: 8.0 cm LVLd ap2: 7.5 cm LAV(MOD-sp2): 52.2 ml EDV(MOD-sp4): 83.6 ml EDV(MOD-sp2): 99.6 ml LAV(MOD-sp4): 57.3 ml EDV(sp4-el): 87.3 ml EDV(sp2-el): 98.6 ml LVAs ap4: 15.2 cm2 LVAs ap2: 18.2 cm2 LVLs ap4: 6.2 cm LVLs ap2: 6.8 cm ESV(MOD-sp4): 30.4 ml ESV(MOD-sp2): 39.4 ml ESV(sp4-el): 31.7 ml ESV(sp2-el): 41.3 ml EF(MOD-sp4): 63.6 % EF(MOD-sp2): 60.5 % EF(sp4-el): 63.7 % SV(MOD-sp4): 53.2 ml SV(MOD-sp2): 60.2 ml SV(sp4-el): 55.6 ml SI(MOD-sp4): 26.6 ml/m2 SI(MOD-sp2): 30.2 ml/m2 LA A4 area: 18.9 cm2 LA dimension(2D): 4.0 cm RA A4 area: 12.8 cm2 TAPSE: 2.6 cm Time Measurements MV dec time: 0.23 sec Doppler Measurements & Calculations MV E max deion: 78.2 cm/sec Lat Peak E' Deion: 9.1 cm/sec Med Peak E' Deion: 8.0 cm/sec MV A max deion: 79.6 cm/sec E/E' lat: 8.6 E/E' med: 9.8 MV E/A: 0.98 MV V2 max: 94.0 cm/sec MV P1/2t max deion: 91.0 cm/sec Ao V2 max: 161.8 cm/sec MV max P.5 mmHg MV P1/2t: 68.8 msec Ao max P.5 mmHg MV V2 mean: 46.9 cm/sec Ao V2 mean: 101.6 cm/sec MV mean P.1 mmHg MV dec slope: 387.7 cm/sec2 Ao mean P.0 mmHg MV V2 VTI: 33.4 cm MVA(P1/2t): 3.2 cm2 Ao V2 VTI: 32.1 cm AV (velocity ratio): 0.87 LV V1 max: 145.7 cm/sec PA V2 max: 99.1 cm/sec TR max deion: 227.4 cm/sec LV V1 max P.5 mmHg TR max P.7 mmHg LV V1 mean P.8 mmHg LV V1 mean: 88.8 cm/sec LV V1 VTI: 27.9 cm ECHO/Echo Complete Interpretation Summary The left ventricular ejection fraction is 60 %. Normal LV size. Left ventricular systolic function is normal. Stage 1 diastolic dysfunction. Ordering Physician: Blade Antoine Referring Physician: Jose Saul Performed By: Madeline Fu, ROBERTO, RVT
== END | disposition home or self-care (01) ==
LOC: CVS 08:25
PROVIDERS: PCP Family Medicine; Referring Provider Nurse Practitioner Family; Visit Provider Nurse Practitioner Family
DX: I47.19 Other supraventricular tachycardia (principal)
CPT/HCPCS: 93306